=== PATIENT | female | born 1950 | race Caucasian/White ===

== ENCOUNTER 2022-06-01 17:07 | Emergency (ER) | payer MEDICARE, BC, SELFPAY ==
[2022-06-01 17:33] VITALS: BP 148/75; PULSE 69; RESP 24; TEMP 35.9; O2SAT 97; BMI 33.3
--- NOTE | 2022-06-01 17:56 | CRLHL7_ITS ---
For Patients: As a result of the Century Cures Act, medical imaging exams and procedure reports are released immediately into your electronic medical record. You may view this report before your referring provider. If you have questions, please contact your health care provider. HISTORY: Fever and cough. COMPARISON: 08/16/2019. FINDINGS: Single frontal view of the chest. The lungs are clear. No evidence for pneumonia. Heart size and pulmonary vascularity within normal. No pleural effusion. Bony structures and soft tissues are within normal. Dictated by Essence Menendez MD @ 06/01/2022 6:33:52 PM (Electronically Signed)
[2022-06-01 18:23] VITALS: PULSE 59; O2SAT 95
--- NOTE | 2022-06-01 18:24 | ED.GENADULT ---
HPI - General Adult General Chief complaint: Fever Stated complaint: Fever,Wheezing,Sick since Jesse Time Seen by Provider: 06/01/22 17:16 History of Present Illness HPI narrative: 72-year-old woman presenting to the emergency department with complaint of fever and increasingly unwell over the last 5 days. Wheezing and cough. She woke up 5 nights ago with a mouthful of acid and is worried that she may have aspirated. She did do multiple COVID tests which apparently have been negative. Does not describe any particular exposures. Her watch measured her oxygen saturations at 1 point at 92%. Sounds like this might have been after a fit of coughing. She has had some productive cough. Some tightness in her chest but no discrete pain. Worried that she might have an aspiration pneumonia it sounds like. Measured fever to 101.3 I believe and is taking acetaminophen. General myalgias she says this is a chronic state of affairs given her osteoarthritis. Does have a history of asthma. Related Data Home Medications Medication Instructions Recorded Confirmed dextroamphetamine-amphetamine ER 10 mg PO DAILY 06/01/22 06/01/22 10 mg 24hr capsule,extend release diclofenac sodium 1 % topical gel 2 g topical QID 06/01/22 06/01/22 levothyroxine 150 mcg tablet 150 mcg PO DAILY 06/01/22 06/01/22 montelukast 10 mg tablet 10 mg PO DAILY 06/01/22 06/01/22 rosuvastatin 5 mg tablet 5 mg PO DAILY 06/01/22 06/01/22 sertraline 100 mg tablet 100 mg PO Q24H 06/01/22 06/01/22 tizanidine 2 mg tablet 2 mg PO PRN 06/01/22 Allergies Allergy/AdvReac Type Severity Reaction Status Date / Time lorazepam [From Ativan] Allergy Intermediate medical Verified 06/01/22 17:55 addication adhesive Allergy Mild contact Verified 06/01/22 17:55 dermatitis bupropion Allergy Mild anxiety Verified 06/01/22 17:55 codeine Allergy Mild SOB Verified 06/01/22 17:55 dicyclomine Allergy Mild Confusion Verified 06/01/22 17:55 fenofibrate Allergy Mild myalgia Verified 06/01/22 17:55 gabapentin Allergy Mild myaglia Verified 06/01/22 17:55 Latex, Natural Rubber Allergy Mild hives Verified 06/01/22 17:55 lithium Allergy Mild falling Verified 06/01/22 17:55 methacholine Allergy Mild Hives Verified 06/01/22 17:55 metoclopramide Allergy Mild Rash Verified 06/01/22 17:55 nitrile Allergy Mild Rash Verified 06/01/22 17:55 Penicillins Allergy Mild hives Verified 06/01/22 17:55 prednisone Allergy Mild swelling Verified 06/01/22 17:55 hands [id number] Reductase Allergy Mild myalgia Verified 06/01/22 17:55 Inhibitor Sulfa (Sulfonamide Allergy Mild confusion Verified 06/01/22 17:55 Antibiotics) pregabalin Allergy Unknown Verified 06/01/22 17:55 amlodipine besylate Allergy Mild rash Uncoded 06/01/22 17:55 fluoxeitne Allergy Mild Hypertensio Uncoded 06/01/22 17:55 n fluticasone Allergy Mild Rash Uncoded 06/01/22 17:55 motirn Allergy Mild Nausea Uncoded 06/01/22 17:55 plant stanol daron Allergy Mild myalgia Uncoded 06/01/22 17:55 shellfish containing products Allergy Mild Dizziness Uncoded 06/01/22 17:55 theophylllin Allergy Mild Confusion Uncoded 06/01/22 17:55 carbamezepine Allergy Unknown Uncoded 06/01/22 17:55 methoylphenidate Allergy Unknown Uncoded 06/01/22 17:55 nabulmetone Allergy Unknown Uncoded 06/01/22 17:55 Review of Systems Status of ROS: Reports: 10 or more systems reviewed and unremarkable except as noted in History and below [facility] Social History Smoking Status: Former smoker How often do you have a drink containing alcohol: never How often do you have six or more drinks on one occasion: Never AUDIT-C Alcohol total score: 0 Non-prescribed substance use: denies use Exam Narrative: Exam Narrative: Pleasant. NAD. Sounds a little congested and laryngitic without facial swelling erythema or tenderness. Cranial nerves 2-12 intact. Skin warm and dry with light psoriatic lesions on hands/wrists. Lungs with trace end-expiratory wheeze bilaterally otherwise good air movement and no crepitus. Oropharynx is unremarkable. Little diaphoretic in the area where the mask is. Cardiovascular with regular rate and rhythm Abdomen is soft nontender. Lower extremities are without edema her nontender. Const: Vital Signs, click to edit/add: Vital Signs - 24 hr 06/01/22 17:33 06/01/22 18:23 Temperature 96.6 F L Pulse Rate [Right Pulse Oximeter] 69 59 L Respiratory Rate 24 Blood Pressure [Ri ght Upper Arm] 148/75 H Pulse Oximetry 97 95 Oxygen Delivery Me thod Room Air Room Air Documenting provider has reviewed patient's vital signs: yes Course Vital Signs Vital signs: Initial Vital Signs Temperature 96.6 F L 06/01/22 17:33 Temperature Source Temporal Artery Scan 06/01/22 17:33 Pulse Rate 69 06/01/22 17:33 Respiratory Rate 24 06/01/22 17:33 Blood Pressure 148/75 H 06/01/22 17:33 Blood Pressure Mean 99 06/01/22 17:33 Blood Pressure Position Sitting 06/01/22 17:33 Pulse Oximetry 97 06/01/22 17:33 Oxygen Delivery Method 06/01/22 17:33 Vital Signs Temperature 96.6 F L 06/01/22 17:33 Pulse Rate 69 06/01/22 17:33 Respiratory Rate 24 06/01/22 17:33 Blood Pressure 148/75 H 06/01/22 17:33 Pulse Oximetry 97 06/01/22 17:33 Oxygen Delivery Method 06/01/22 17:33 Temperature 96.6 F L 06/01/22 17:33 Pulse Rate 59 L 06/01/22 18:23 Respiratory Rate 24 06/01/22 17:33 Blood Pressure 148/75 H 06/01/22 17:33 Pulse Oximetry 95 06/01/22 18:23 Oxygen Delivery Method 06/01/22 18:23 Medical Decision Making MDM Narrative Medical decision making narrative: I would suspect influenza given community prevalence. We will be screening for this. Chest x-ray as well. By my read chest x-ray is unremarkable for any acute abnormality. Triple screen positive for influenza A With asthma and other inflammatory condition history and laryngitis I think would benefit from a course of prednisone It would seem that has been ill too long to benefit from Tamiflu Lab Data Lab results reviewed: Yes I reviewed the patient's lab results Labs: Lab Results 06/01/22 Range/Units 17:56 SARS-CoV-2 (PCR) Negative SARS-CoV-2 (Negative) Influenza Type A (PCR) POSITIVE PCR FLU A A (Negative) Influenza Type B (PCR) Negative PCR FLU B (Negative) RSV (PCR) Negative PCR RSV (Negative) Discharge Plan Discharge Clinical Impression: Influenza A, Laryngitis, Wheezing Patient Disposition: Home, Self-Care Condition: Stable Additional Instructions: Stay hydrated. Maybe sleep under the mist of a cool mist humidifier. Return for increasing shortness of breath, worsening chest pain/tightness, associated fever. Can take ibuprofen or acetaminophen. Prednisone from [facility]. Prescriptions: No Action tizanidine 2 mg tablet 2 mg PO PRN Label Comments: TAKE ONE TABLET BY MOUTH EVERY EIGHT HOURS NEEDED FOR MUSCLE SPASM sertraline 100 mg tablet 100 mg PO Q24H Label Comments: TAKE TWO TABLETS BY MOUTH DAILY levothyroxine 150 mcg tablet 150 mcg PO DAILY Label Comments: Take 1 Tablet (150 mcg) by mouth before breakfast. dextroamphetamine-amphetamine 10 mg capsule,extended release 24hr 10 mg PO DAILY Label Comments: TAKE ONE CAPSULE BY MOUTH ONE TIME DAILY montelukast 10 mg tablet 10 mg PO DAILY Label Comments: Take 1 Tablet (10 mg) by mouth at bedtime rosuvastatin 5 mg tablet 5 mg PO DAILY Label Comments: TAKE ONE TABLET BY MOUTH ONE TIME DAILY AT BEDTIME diclofenac sodium 1 % gel 2 g TOPICAL QID Label Comments: Apply 2 g topically to affected area(s) 4 times daily Follow Up/Referrals: Ning Dunn DO [Primary Care Provider] - Stand Alone Forms: MyHealth Info Instructions
[2022-06-01 19:16] LABS: PCR FLU A POSITIVE PCR FLU A (Negative); PCR FLU B Negative PCR FLU B (Negative); PCR RSV Negative PCR RSV (Negative)
[2022-06-01 19:29] LABS: SARS PCR* Negative SARS-CoV-2 (Negative)
== END 2022-06-01 20:30 | disposition home or self-care (01) ==
PROVIDERS: Emergency Provider Family Medicine; PCP Family Medicine
DX: J09.X2 Influenza due to identified novel influenza A virus with other respiratory manifestations (principal)
CPT/HCPCS: 71045; 87502; 87634; 87635; 99283

== ENCOUNTER 2023-11-01 08:45 | Outpatient (RCR) | payer MEDICARE, BC, SELFPAY | END 2024-02-08 10:30 | disposition home or self-care (01) | PROVIDERS: PCP Family Medicine; Visit Provider Physical Medicine & Rehabilitation | DX: G71.00 Muscular dystrophy, unspecified (principal); G72.9 Myopathy, unspecified; R27.8 Other lack of coordination; N39.46 Mixed incontinence; M62.81 Muscle weakness (generalized); R53.83 Other fatigue; F32.A Depression, unspecified; M25.60 Stiffness of unspecified joint, not elsewhere classified; R26.89 Other abnormalities of gait and mobility; Z51.89 Encounter for other specified aftercare | CPT/HCPCS: 97110; 97162; 97535 ==

== ENCOUNTER 2024-09-27 20:43 | Emergency (ER) | payer MEDICARE, BC, SELFPAY ==
--- OUTSIDE RECORDS SUMMARY | 2024-09-27 20:45 | XMS_ITS | Clinical Summary ---
Author Organization [facility] Address [address] [place] [id number] Care Team Providers Care Access Clerk Name Role Phone Megan Woods MD Unavailable [phone] Ning Dunn DO Primary Care Provider [phone] Allergies Active Allergy Reactions Criticality Noted Date Comments Amlodipine Besylate Rash Lorazepam Other - Describe In Comment Field 06/08/2009 Past medical related addiction Dicyclomine Confusion 12/24/2012 Mental status changes noted. Plant Stanol Rafaela Myalgia 06/05/2013 Codeine Shortness Of Breath,Other - Describe In Comment Field 06/08/2009 Muscle constriction Fenofibrate Myalgia 03/28/2013 Causes bone pain. Fluticasone Rash,Other - Describe In Comment Field 06/08/2009 Itchy rash, burning Latex, Natural Rubber Hives,Rash [place] Other - Describe In Comment Field High 06/08/2009 Weakness/lethargy Pregabalin Other - Describe In Comment Field 05/20/2015 Exfoliating Dermatitis Methacholine Hives,Fever,Other - Describe In Comment Field 06/08/2009 blisters Ibuprofen Nausea And Vomiting,Other - Describe In Comment Field High 06/08/2009 Abdominal cramping Gabapentin Myalgia 10/14/2014 Nitrile Rash 10/11/2017 Unlisted Allergen (Include Detail In Comments) Rash 06/29/2015 Adult depends - generic. Penicillins Hives,Rash,Other - Describe In Comment Field 06/08/2009 canker sores in mouth and throat Prednisone Other - Describe In Comment Field High 06/08/2009 Severe swelling and fluid on lungs if used over extended period-use only for ER Fluoxetine Hypertension,Other - Describe In Comment Field 06/08/2009 Extremely high blood pressure, shaking Metoclopramide Rash 06/08/2009 Nabumetone Other - Describe In Comment Field 06/08/2009 Asthma attacks Methylphenidate Analogues Other - Describe In Comment Field 06/08/2009 Rapid pulse, confusion, smooth muscle issues Shellfish Containing Products Dizziness 06/05/2014 Lwjjvkv-Eef-Rzf Reductase Inhibitors Myalgia 08/18/2011 Sulfa (Sulfonamide Antibiotics) Confusion,Vomiting High 06/08/2009 Adhesive Contact Dermatitis,Rash 02/16/2012 Carbamazepine Other - Describe In Comment Field High 06/08/2009 Life threatening-Saenz- Babatunde RX Theophylline Confusion 06/08/2009 Neurological symptoms, stumbling, imbalance, and muscle weakness Bupropion Anxiety,Confusion, Other - Describe In Comment Field 06/08/2009 Shaking, high blood pressure Medications acetaminophen SR (TYLENOL ARTHRITIS) 650 mg Extended-Release tablet Take 2 tablets by mouth every 8 hours if needed. Max acetaminophen dose: 4000mg in 24 hrs. 0 10/09/19 16 Active albuterol HFA (PROAIR HFA) 90 mcg/actuation inhalerIndications :Mild intermittent asthma with acute exacerbation (HC) Inhale 1-2 Puffs by mouth every 6 hours if needed. 2 Inhaler 5 08/01/19 19 Active albuterol-ipratrop ium (DUONEB) (2.5-0.5 mg) in 3 mL NEBULIZATION solutionIndication s:Mild intermittent asthma with acute exacerbation (HC) Inhale 3 mL via a nebulizer 4 times daily if needed. 360 mL 10 09/19/19 20 Active meclizine (ANTIVERT) 25 mg tabletIndications: Vertigo Take 1 tablet by mouth 3 times daily if needed. 45 tablet 01/03/20 20 Active fluticasone (50 mcg per actuation) nasal solution (FLONASE)Indicatio ns:PND (post-nasal drip) Inhale 2 Sprays into both nostrils once daily. 48 g 1 01/03/20 20 Active EPINEPHrine (EPIPEN) 0.3 mg/0.3 mL injection Inject 0.3 mg intramuscular one time for 1 dose. 10/30/19 20 Active multivitamin (MVI) tablet Take 1 Tablet by mouth once daily. 0 12/16/19 21 Active esomeprazole (NEXIUM) 20 mg capsule Active ibuprofen (ADVIL; MOTRIN) 200 mg tablet Take 2 Tablets (400 mg) by mouth two times daily. 0 07/25/19 23 Active cyanocobalamin (VITAMIN B12) 1,000 mcg tabletIndications: Vitamin B12 deficiency Take 1 Tablet (1,000 mcg) by mouth once daily. 90 Tablet 3 07/25/19 23 Active Incontinence Pad, Liner, Disp pads Daytime and nighttime pads 08/02/19 24 Active ketoconazole 2% topical (NIZORAL) creamIndications:T inea pedis, right Apply topically to affected area(s) once daily. 30 g 2 08/30/19 24 Active ammonium lactate 12% topical (LACHYDRIN) 12 % lotionIndications: Fissure in skin of foot Apply topically to affected area(s) two times daily. 396 g 5 08/30/19 24 Active levothyroxine (SYNTHROID) 150 mcg tabletIndications: Acquired hypothyroidism Take 1 Tablet (150 mcg) by mouth before breakfast. 90 Tablet 3 03/06/20 24 Active montelukast (SINGULAIR) 10 mg tabletIndications: Mild intermittent asthma without complication (HC) Take 1 Tablet (10 mg) by mouth at bedtime. 90 Tablet 3 03/06/20 24 Active sertraline (ZOLOFT) 100 mg tabletIndications: Depression, unspecified depression type Take 2 Tablets (200 mg) by mouth once daily. 180 Tablet 3 03/06/20 24 Active diclofenac topical (VOLTAREN) 1 % gelIndications:Ost eoarthritis of shoulder, unspecified laterality, unspecified osteoarthritis type,Shoulder injury, unspecified laterality, sequela Apply 2 g topically to affected area(s) four times daily. 100 g 3 03/06/20 24 Active CPAPIndications:OS A (obstructive sleep apnea) CPAP machine for home use at pressure 11 cm/h2O, full face mask x1/3month with a full face cushion x1/mo 1 Each 11 07/10/19 25 Active dextroamphetamine- amphetamine (Adderall XR) 10 mg Extended-Release capsuleIndications :Attention deficit hyperactivity disorder (ADHD), unspecified ADHD type Take 1 Capsule (10 mg) by mouth once daily. 30 Capsule 09/10/19 25 Active magic mouthwash 1:1:1 (diphen 12.5mg/5mL-lidocai ne 2%-maalox [phone]/5ml) (AMB MIX)Indications:Mo uth sore Swish and spit 5-10 mL by mouth 4 times daily if needed for Mouth Sores. 240 mL 1 09/05/19 25 Active dextroamphetamine- amphetamine (Adderall XR) 10 mg Extended-Release capsuleIndications :Attention deficit hyperactivity disorder (ADHD), unspecified ADHD type Take 1 Capsule (10 mg) by mouth once daily. 30 Capsule 10/09/19 25 025 Active dextroamphetamine- amphetamine (Adderall XR) 10 mg Extended-Release capsuleIndications :Attention deficit hyperactivity disorder (ADHD), unspecified ADHD type Take 1 Capsule (10 mg) by mouth once daily. 30 Capsule 11/08/19 25 025 Active dextroamphetamine- amphetamine (Adderall XR) 10 mg Extended-Release capsuleIndications :Attention deficit hyperactivity disorder (ADHD), unspecified ADHD type Take 1 Capsule (10 mg) by mouth once daily. 30 Capsule 12/08/19 25 Active dextroamphetamine- amphetamine (Adderall XR) 10 mg Extended-Release capsuleIndications :Attention deficit hyperactivity disorder (ADHD), unspecified ADHD type Take 1 Capsule (10 mg) by mouth once daily. 30 Capsule 08/10/19 25 025 mupirocin 2% ointmentIndication s:Sore in nose Apply topically to affected area(s) three times daily for 5 days. 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 Does have increased risk breast cancer and per concult Current National Comprehensive Cancer Network (NCCN) guidelines suggest: Annual clinical encounter Annual screening mammogram Consider tomosynthesis Breast awareness A clinical encounter should include: Ongoing risk assessment Risk reduction counseling A clinical breast exam Vitamin B deficiency 03/03/2016 ADAN 11/07/2015 AHI-14.6 11/16/2015 Status post left hip replacement 10/08/2015 Prophylactic antibiotic for dental procedure indicated due to prior joint replacement 07/06/2015 Overview (07/06/2015): Per Dr Mackay. Has card recommending 600mg clindamycin 1 hour prior to any dental procedures Status post right hip replacement 06/19/2015 Subjective muscle weakness 04/30/2015 Overview (04/30/2015): Long history muscle and joint pain. Has been seeing Dr Jean-Baptiste for back, hip and joint pains since at least 2009. Reports history abnormal muscle biopsy in 1992 with ill-defined muscle disorder. No records available. +FH muscular dystrophy and myotonia congenita. Has chronically elevated CK October 2014 reported progressive weakness upper thighs. MRI without significant change Rheumatology consult 10/2014 not FMS, not supportive of connective tissue disease, labs nml except myositis panel and recommended see neurology December 2014 Neurology 'no focal deficits or obvious pathologic weakness. EMG negative. Recommend trial neurontin or Lyrica. Previously not tolerate high dose neurontin and tried Lyrica with side effects Apr 2015: Referral placed for further evaluation at [place] [facility] as patient reports progressing symptoms. Neuropathic pain 02/03/2015 Overview (04/30/2015): Had side effects with high dose neurontin. Not tolerated lyrica. Chronic pain 10/14/2014 Chemical burn of finger 06/05/2014 Knee osteoarthritis 02/19/2014 Lactose intolerance 03/28/2013 HTN (hypertension) 01/29/2013 Hypovitaminosis D 06/14/2012 Other malaise and fatigue 06/14/2012 Overview (04/30/2015): Per chart, has had since June 2012, improved around 06/2013 and intermittent since Adenomatous colon polyp 04/17/2012 Overview (10/08/2021): Colonoscopy 04/2012 polyps repeat in 3 years Colonoscopy 04/2015 polyps repeat in 3 years Colonoscopy 05/2018 polyps, repeat in 3 years Incomplete colonoscopy 08/2021 follow-up CT colonography negative, please refer patient to tertiary care GI center in 3 years for repeat colonoscopy per patient's request Gait instability 03/19/2012 Myopathy 03/19/2012 Overview (04/30/2015): Patient reports history abnormal muscle biopsy 1992, unknown muscular disorder [facility] Has chronically elevated CK. 2014 saw Rheumatology and neurology with no known etiology for symptoms Referral [facility] for further evaluation regarding symptoms is pending Stress incontinence 03/19/2012 Dermatitis of ear canal 03/19/2012 Multiple thyroid nodules 03/19/2012 Overview (01/17/2022): Thyroid US 2020 Hyperechoic nodule left lateral thyroid lobe decreased in size from 2012. Size thyroid lobe measuring 1 x 0.9 x 0.7 cm TR 3 per report TR3: Mildly Suspicious FNA if greater than or equal to 2.5 cm Follow if greater than or equal to 1.5 cm Post concussive syndrome 12/19/2011 Magda thyroiditis 12/13/2011 Mild TBI 08/18/2011 Unspecified hypothyroidism 05/16/2011 Severe obesity (BMI 35.0-39.9) with comorbidity 05/16/2011 Assessment & Plan (10/03/2022 12:40 PM CDT): Chart update only. JEAN-PIERRE Velazquez .................... 10/03/2022 12:40 PM Other and unspecified hyperlipidemia 05/16/2011 Overview (04/30/2015): Intolerant of statins Recurrent major depressive disorder, in partial remission 05/16/2011 Asthma 05/16/2011 Hip osteoarthritis 03/24/2011 Trochanteric bursitis 03/24/2011 Degeneration of lumbar or lumbosacral interverte bral disc 03/24/2011 Overview (04/30/2015): L4-5 DDD and facet arthropathy Sensorineural hearing loss, bilateral 08/17/2009 Resolved Problems Problem Noted Date Diagnosed Date Resolved Date Anticoagulation monitoring, special range (1.8-2.5) 06/19/2015 08/19/2020 Knee pain, right 01/13/2014 02/19/2014 Pre-diabetes 05/16/2011 07/30/2012 Encounters Date Type Department Care Team Description 09/25/2024 Medical Messaging [facility] [address] [place] [address] Ning Dunn DO Referral request 09/09/2024 Nurse Triage [facility] [address] [place] [address] Ning Dunn DO Blood Body Fluid Exposure; Sores In Mouth 09/09/2024 Telephone [facility] [address] [place] [address] Ning Dunn DO OTHER (Mrsa) 09/04/2024 2:20 PM ASH CONVEYOR OPERATOR Telemedicine [facility] [address] [facility] [place] [address] Ning Dunn DO Shoulder Pain/problem (Bilateral shoulder and upper arms ongoing getting worse-referral [facility] for injections); Medication Management (2 tylenol 3 times daily, 3 ibuprofen 3 times daily-liver); Refill Request (Magic mouthwash for sore in mouth) 07/30/2024 3:00 PM ASH CONVEYOR OPERATOR Telemedicine [facility] [address] [place] [address] Hayden Blanc MD 07/30/2024 Travel 07/11/2024 Refill [facility] [address] [place] [address] Ning Dunn DO Refill Request (Dextroamphetamine- amphetamine) 07/10/2024 2:30 PM ASH CONVEYOR OPERATOR Office Visit [facility] [address] [place] [address] Aamir Rosas MD Sleep Follow-up 07/10/2024 Travel 07/05/2024 Travel from Last 3 Months Immunizations Immunization Administration Dates Next Due COVID-19 VACCINE SPIKEVAX (M ODERNA 50MCG/0.5ML) 12YO+ PFS 04/08/2023 COVID-19 vaccine (Moderna 100mcg/0.5mL) PF, MDV 08/26/2020,07/29/2020 Influenza A (H1N1), Inactivated 05/04/2009 Influenza RIV4 (Age 18+ Year s) PRESERV FREE 02/24/2017 Influenza, High-dose Inactivated 020,02/23/2018,03/01/2016,03/17 Influenza, High-dose Quadriv alent Inactivated 03/07/2023,03/17/2022,03/12/2021,03/11 Influenza, IIV3 (Age >=3 years) 03/04/2013 Influenza, Inactivated IIV3 (Age 65+ Years) Preserv Free 03/06/2024,03/07/2023,03/12/2019,03/06 Meningococcal Vaccine (Menomune) 08/28/2007 Pneumococcal Poly,23-Valent (Pneumovax) 03/19/2013 Pneumococcal conj 13-Valent (Prevnar 13) 10/03/2014 RSV, Recombinant ADJ Reconst ituted (Arexvy 120MCG/0.5mL) 04/08/2023 Td (Age >=7 Years) 03/18/2021 Tdap 05/16/2011,11/09/2006 Zoster (Shingrix-RZV, recombinant) 06/14/2018, Family History Medical History Relation Name Comments Other Brother precancerous co kaden polyps Cancer Father lung Cancer-colon Father Cancer-breast Maternal Aunt Cancer-colon Maternal Grandfather Cancer-colon Maternal Uncle Buckner syndrom e Cancer-colon Mother Cancer-breast Other maternal & pat ernal cousins Cancer-breast Paternal Aunt Cancer-colon Paternal Grandfather Cancer-colon Paternal Uncle Cancer-breast Sister 1 Diabetes Sister 1 Uterine cancer Sister 1 Arthritis Sister 2 RA Cancer-breast Sister 2 Cancer-ovarian No Family History Relation Name Status Comments Brother Father Maternal Aunt Maternal Grandfather Maternal Uncle Mother Other Paternal Aunt Paternal Grandfather Paternal Uncle Sister 1 Sister 2 Social History Tobacco Use Types Packs/Day Years Used Date Smoking Tobacco: Former Cigarettes Q uit: 07/03/1978 Smokeless Tobacco: Never Tobacco Cessation:Counseling Given: No Alcohol Use Standard Drinks/Week Comments No 0 (1 standard drink = 0.6 oz pur e alcohol) PHQ-2 Answer Date Recorded PHQ-2 TOTAL SCORE 0 03/06/2024 Social Connections Answer Date Recorded Do you often feel lonely or isolated from those around you? 0 11/20/2023 Financial Resource Strain Answer Date R ecorded Difficulty of Paying Living Expenses 3 11/20/2023 Difficulty of Paying Living Expenses Not on file 11/20/2023 Food Insecurity Answer Date Recorded Do you worry your food will run out before you are able to buy more? 1 11/20/2023 Transportation Needs Answer Date Record ed Does lack of transportation keep you from medica l appointments? 2 11/20/2023 Does lack of transportation keep you from work, meetings or getting things that you need? 2 11/20/2023 Housing Stability Answer Date Recorded What is your housing situation today? 1 11/20/2023 Utilities Answer Date Recorded Do you have trouble paying f or utilities (for example, heat, electricity, water, phone)? 1 11/20/2023 Comments No Sex and Gender Information Value Date Recorded Sex Assigned at Female 03/12/2020 1:26 AM CDT Legal Sex Female 6:09 AM ASH CONVEYOR OPERATOR Gender Identity Female 03/12/2020 1:26 AM CDT Sexual Orientation Straight 03/12/2020 1: 26 AM CDT Obstetrics History Para Term AB IAB SAB Ectopic Multiple Livin g Live Births 1 1 0 1 0 0 0 0 0 1 1 Date Outcome GA Total Labor Labor/2nd/3rd Weight Sex Type Anes PTL Lorna A1 A5 Name Clin Vag Living Last Filed Vital Signs Vital Sign Reading Time Taken Comments Blood Pressure 169/78 07/10/2024 2:44 PM ASH CONVEYOR OPERATOR Pulse 57 07/10/2024 2:36 PM ASH CONVEYOR OPERATOR Temperature 36.9 C (98.5 F) 03/11/2021 1:17 PM CDT Respiratory Rate 12 04/08/2019 2:35 PM CDT Oxygen Saturation 96% 07/10/2024 2:36 PM ASH CONVEYOR OPERATOR Inhaled Oxygen Concentration - - Weight 104 kg (229 lb 3.2 oz) 07/10/2024 2:36 PM ASH CONVEYOR OPERATOR Height 162.6 cm (5' 4) 07/10/2024 2:36 PM ASH CONVEYOR OPERATOR Body Mass Index 39.34 07/10/2024 2:36 PM ASH CONVEYOR OPERATOR Plan of Treatment Upcoming Encounters Date Type Department Care Team (Late st Contact Info) Description 10/09/2024 10:50 AM CDT Office Visit [facility] [address] [place] [address] Ning Dunn DO [address] [place] [address] Health Maintenance Due Date Last Done Comments COVID-19 vaccine series ( season) 2024 03/15/2024, 09/27/2023, 04/08/2023, Additional history exists Depression screening for age 12+ 03/06/2025 03/06/2024, 07/26/2023, 07/26/2023, Additional history exists Medicare Wellness for age 65+ 03/07/2025, 04/16/2020, 02/03/2015 BMI (ht and wt on same day) for age 18+ 07/10/2025 07/10/2024, 03/06/2024, 07/26/2023, Additional history exists Tetanus booster 03/18/2031 03/18/2021, 05/03, 05/16/2011, Additional history exists Tdap Completed 05/16/2011, 11/09/2006 Pneumococcal series for age 50+ Completed 10/11/2014 (Completed outside of [facility]), 10/03/2014, 03/19/2013 Zoster (shingles) series for age 50+ Completed 06/14/2018, 03/21/2018 DEXA/DXA scan for age 65+ Completed 04/29/2020, Hepatitis C screening for ag e 18-79 Completed 03/19/2021, 03/19/2012 RSV vaccine for adults or Completed 04/08/2023 Influenza Vaccine Completed 03/06/2024, , 03/12/2020, Additional history exists Procedures Procedure Name Priority Date/Time Associated Diagnosis Comments ANTI HCV Add On 03/19/2021 3:41 PM CDT Elevated liver enzymes XR DXA BONE DENSITY 1 SITE AXIAL AND 1 SITE PERIPHERAL Routine 04/29/2020 1:54 PM CDT Asymptomatic postmenopausal state from Last 3 Months or Most Recently Relevant to Health Maintenance Results * ANTI HCV (03/19/2021 3:41 PM CDT) HEPATITIS C ANTIBODY Non-React huma Non-React huma 03/20/2021 11:31 PM CDT [facility] Comment:Antibodies to HCV no t detected; does not exclude the possibility of exposure to HCV. Blood BLOOD SPECIMEN / Unknown Venipuncture / Unknown 03/19/2021 3:41 PM CDT 03/19/2021 3:41 PM CDT Ning Dunn DO SEND OUTS Final [facility]u lt [facility] [address] [place] [address], [place] * XR DXA BONE DENSITY 1 SITE AXIAL AND 1 SITE PERIPHERAL (04/29/2020 1:54 PM CDT) Anatomical Region Laterality Modality LUMBAR SPINE Other Narrative 05/10/2020 3:57 PM ASH CONVEYOR OPERATOR Please see scanned document for results of this study. Ning Dunn DO DEXA Final Resu lt from Last 3 Months or Most Recently Relevant to Health Maintenance Insurance [id number] [facility] [place] [id number] MEDICARE [place] ONLY MEDICARE PART A HB ONLY MEDICARE PART B HB ONLY [facility] FAMILY INSURANCE MEDICARE [place] ONLY [id number] [place] [id number] COMM[address]CIAL [id number] [facility] [place] [id number] Advance Directives Documents on File Type Date Recorded Patient Water Inspector Expl anation Healthcare Directive 06/08/2015 2:32 PM [facility], 05/26/2015 Care Teams Access Clerk Relationship Specialty Start Date End Date [place] [address] PCP - General Family Practice 04/16/15 Megan Woods MD [address] [place] [address] Rheumatology Rheumatology 11/07/14
--- OUTSIDE RECORDS SUMMARY | 2024-09-27 20:45 | XMS_ITS | Clinical Summary ---
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/19 Karmen Darlene Cherucheril PA-C Muscular dystrophy Other lesions of median nerve, bilateral upper limbs 871121155 (SNOMED CT) 11/24 Active 11/24 Michael Weems MD Lesion of median nerve Bladder instability 652739933 (SNOMED CT) 10/31 Active 10/31 Afshin Hsu MD Irritability of urinary bladder Numbness, hand 479742109 (SNOMED CT) 08/24 Active 08/24 Karmen Darlene Cherucheril PA-C Numbness of limbs Upper arm pain, right 437452950 (SNOMED CT) 08/24 Active 08/24 Karmen Darlene Cherucheril PA-C Pain in right arm Upper arm pain, left 895825194 (SNOMED CT) 08/24 Active 08/24 Karmen Darlene Cherucheril PA-C Pain in left arm Shoulder pain, right 25898874687 133212 (SNOMED CT) 08/24 Active 08/24 Karmen Darlene Cherucheril PA-C Pain of right shoulder joint Shoulder pain, left 74531911472 706182 (SNOMED CT) 08/24 Active 08/24 Karmen Carrera PA-C Pain of left shoulder joint Lumbar radiculopat hy, left 595105332 (SNOMED CT) 07/21 Active 07/21 Afshin Hsu MD Lumbar radiculopathy Myopathy 747691574 (SNOMED CT) 03/22 Active 03/22 Karmen Carrera PA-C Disorder of muscle Sleep disturbance , nos 44490517 (SNOMED CT) 02/24 Active 02/24 Rodolfo Conrad MD Sleep apnea Syncope 016681971 (SNOMED CT) 08/16 Active 08/17 Rodolfo Conrad MD Syncope History of head injury 155312585 (SNOMED CT) 08/02 Active 08/02 Rodolfo Conrad MD History of head injury Strain of muscle, fascia and tendon at neck level, sequela S16.1xxS (ICD-10-CM) 12/11 Active 12/11 Monika Alicia Fletcher DNP,SOURCING CONSULTANT,CN P Strain of muscle, fascia and tendon at neck level, sequela Lumbar disc degeneratio n 02381108 (SNOMED CT) 12/11 Active 12/11 Monika Alicia Fletcher DNP,SOURCING CONSULTANT,CN P Degeneration of lumbar intervertebral disc Weakness of right leg 055120211 (SNOMED CT) 07/11 Active 07/11 Monika Alicia Fletcher DNP,SOURCING CONSULTANT,CN P Monoparesis of lower limb Lumbar degenerativ e disc 722.52 (ICD-9-CM) 12/11 Inactive 12/11 Brent Mcgraw DO Degeneration of lumbar or lumbosacral intervertebral disc Low back pain 807692773 (SNOMED CT) 12/11 Active 12/11 Brent Brockmann DO Low back pain Leg pain 06716886 (SNOMED CT) 12/11 Active 12/11 Brent Mcgraw DO Pain in lower limb Dysequilibr ium 237773947 (SNOMED CT) 12/11 Active 12/11 Brent Mcgraw DO Dysequilibrium syndrome Cervical strain 396719779 (SNOMED CT) 12/11 Inactive 12/11 Brent Mcgraw DO Strain of neck muscle Low back pain 474821450 (SNOMED CT) 12/11 Active 12/11 Brent Mcgraw DO Low back pain ULNAR NEUROPATHY 598886488 (SNOMED CT) 08/17 Active 08/17 Harvey Camara MD Ulnar neuropathy UNSPECIFIED VITAMIN D DEFICIENCY 98480485 (SNOMED CT) 07/05 Active 07/05 Brent Mcgraw DO Vitamin D deficiency HYPOTHYROID ISM 28106752 (OMED CT) 07/05 Active 07/05 Brent Mcgraw DO Hypothyroidism MUSCULOSKEL ETAL SYMPTOMS, NOS R29.898 (ICD-10-CM) 08/04 Active 08/04 Brent Mcgraw DO Other symptoms and signs involving the musculoskeleta l system MUSCLE WEAKNESS 79457465 (SNOMED CT) 08/04 Active 08/04 Brent Mcgraw DO Muscle weakness Medications Medication Instructions Start Date Stop Date Generic Name [facility] Provider AMPHETAMINE-DEXT ROAMPHET ER 10 MG [id number] 02/13 dextroamphetamine -amphetamine 48135095813 Afshin Hsu MD AMPHETAMINE-DEXT ROAMPHET ER 10 MG [id number] take 1 pill every morning as needed dextroamphetamine -amphetamine 27801079669 Afshin Hsu MD MELOXICAM 15 MG TABS 01/15 meloxicam 39343112180 Karmen Carrera PA-C COMBIVENT RESPIMAT 20-100 MCG/ACT AERS as needed 01/15 ipratropium-albut joseline 51509921966 Karmen Carrera PA-C BACTROBAN 2 % EXTERNAL OINTMENT as needed 01/15 BACTROBAN 2 % EXTERNAL OINTMENT Karmen Darlene Cherucheril PA-C MECLIZINE HCL 25 MG TABS as needed 01/15 meclizine 49811149400 Karmen Guzmanyo MOREJON-C EZETIMIBE 10 MG TABS ezetimibe 72886494401 Karmen Carrera JEAN-PIERRE-C AMPHETAMINE-DEXT ROAMPHET ER 10 MG [id number] 11/15 dextroamphetamine -amphetamine 52392507624 Karmen Guzmanyo MOREJON-C ADULT ASPIRIN EC LOW STRENGTH 81 MG ORAL TABLET DELAYED RELEASE 1 once a day 03/22 ADULT ASPIRIN EC LOW STRENGTH 81 MG ORAL TABLET DELAYED RELEASE Monika Fletcher DNP,SOURCING CONSULTANT,HTML DEVELOPER LEVOFLOXACIN 500 MG TABS 03/22 levofloxacin 52984592309 Monika Fletcher DNP,SOURCING CONSULTANT,HTML DEVELOPER MONTELUKAST SODIUM 10 MG TABS montelukast 93501620084 Monika Fletcher DNP,SOURCING CONSULTANT,HTML DEVELOPER OXYBUTYNIN CHLORIDE ER 10 MG [id number] 03/22 oxybutynin chloride 19570366367 Monika Fletcher DNP,SOURCING CONSULTANT,HTML DEVELOPER MECLIZINE HCL 25 MG TABS as needed 01/15 meclizine 73454959414 Monika Fletcher DNP,SOURCING CONSULTANT,HTML DEVELOPER COMBIVENT RESPIMAT 20-100 MCG/ACT AERS as needed 01/15 ipratropium-albut joseline 46187873996 Monika Fletcher DNP,SOURCING CONSULTANT,HTML DEVELOPER LEVOTHYROXINE SODIUM 150 MCG TABS levothyroxine 91402293175 Monika Fletcher DNP,SOURCING CONSULTANT,HTML DEVELOPER EPIPEN 2-NICKOLAS 0.3 MG/0.3ML SOAJ epinephrine 22640277195 Monika Fletcher DNP,SOURCING CONSULTANT,HTML DEVELOPER BACTROBAN 2 % EXTERNAL OINTMENT as needed 01/15 BACTROBAN 2 % EXTERNAL OINTMENT Monika Fletcher DNP,SOURCING CONSULTANT,HTML DEVELOPER MELOXICAM 15 MG TABS 01/15 meloxicam 62153832720 Monika Fletcher DNP,SOURCING CONSULTANT,HTML DEVELOPER AMLODIPINE BESYLATE 2.5 MG TABS 03/22 amlodipine 60855144659 Monika Fletcher DNP,SOURCING CONSULTANT,HTML DEVELOPER D 5000 125 MCG (5000 UT) CAPS once a day cholecalciferol (vitamin d3) 68534597790 Monika Fletcher DNP,SOURCING CONSULTANT,HTML DEVELOPER FLUZONE HIGH-DOSE 0.5 ML INTRAMUSCULAR SUSPENSION PREFILLED SYRINGE 03/22 FLUZONE HIGH-DOSE 0.5 ML INTRAMUSCULAR SUSPENSION PREFILLED SYRINGE Monika Fletcher DNP,SOURCING CONSULTANT,HTML DEVELOPER SERTRALINE HCL 100 MG TABS sertraline 46453277205 Monika Fletcher DNP,SOURCING CONSULTANT,HTML DEVELOPER DULERA AERO 08/23 MOMETASONE FURO-FORMOTEROL FUM AERO 76192209249 Rodolfo Conrad MD AMMONIUM LACTATE 12 % CREA as needed 08/23 AMMONIUM LACTATE 33717865597 Rodolfo Conrad MD AMMONIUM LACTATE 12 % CREA as needed 10/15 AMMONIUM LACTATE 36226418012 Monika Fletcher DNP,SOURCING CONSULTANT,HTML DEVELOPER BACTROBAN 2 % EXTERNAL OINTMENT as needed 03/22 MUPIROCIN 79490398240 Monika Fletcher DNP,SOURCING CONSULTANT,HTML DEVELOPER MECLIZINE HCL 25 MG TABS as needed 03/22 MECLIZINE HCL 45738562841 Monika Fletcher DNP,SOURCING CONSULTANT,HTML DEVELOPER DULERA AERO 08/23 MOMETASONE FURO-FORMOTEROL FUM AERO 88075459444 Monika Fletcher DNP,SOURCING CONSULTANT,HTML DEVELOPER VITAMIN D3 125 MCG (5000 UT) CAPS daily 03/22 CHOLECALCIFEROL 21878015693 Monika Fletcher DNP,SOURCING CONSULTANT,HTML DEVELOPER COMBIVENT RESPIMAT AERS as needed 03/22 IPRATROPIUM-ALBUT JOSELINE AERS 71431641892 Monika Fletcher DNP,SOURCING CONSULTANT,HTML DEVELOPER ADULT ASPIRIN EC LOW STRENGTH 81 MG ORAL TABLET DELAYED RELEASE One pill daily 03/22 ASPIRIN 50218488431 Monika Fletcher DNP,SOURCING CONSULTANT,HTML DEVELOPER EPIPEN 2-NICKOLAS 0.3 MG/0.3ML SOAJ 10/15 EPINEPHRINE 88135461610 Monika Fletcher DNP,SOURCING CONSULTANT,HTML DEVELOPER OXYBUTYNIN CHLORIDE ER 10 MG [id number] 08/17 OXYBUTYNIN CHLORIDE 42606802209 Monika Fletcher DNP,SOURCING CONSULTANT,HTML DEVELOPER SERTRALINE HCL 100 MG TABS 03/22 SERTRALINE HCL 92390864082 Monika Fletcher DNP,SOURCING CONSULTANT,HTML DEVELOPER MONTELUKAST SODIUM 10 MG TABS 03/22 MONTELUKAST SODIUM 36030095514 Monika Fletcher DNP,SOURCING CONSULTANT,HTML DEVELOPER LEVOTHYROXINE SODIUM 150 MCG TABS 10/15 LEVOTHYROXINE SODIUM 52646038806 Monika Fletcher DNP,SOURCING CONSULTANT,HTML DEVELOPER AMLODIPINE BESYLATE 2.5 MG TABS 10/15 AMLODIPINE BESYLATE 00030229436 Monika Fletcher DNP,SOURCING CONSULTANT,HTML DEVELOPER FLUZONE HIGH-DOSE 0.5 ML DESTINY INFLUENZA VAC SPLIT HIGH-DOSE 31490506432 Monika Fletcher DNP,SOURCING CONSULTANT,HTML DEVELOPER MELOXICAM 15 MG TABS 03/22 MELOXICAM 16034749890 Monika Fletcher DNP,SOURCING CONSULTANT,HTML DEVELOPER LEVOFLOXACIN 500 MG TABS 03/22 LEVOFLOXACIN 16154875925 Monika Fletcher DNP,SOURCING CONSULTANT,HTML DEVELOPER ZANAFLEX 4MG 1 po qhs and bid prn muscle stiffness and pain 07/11 ZANAFLEX 4MG Monika Fletcher DNP,SOURCING CONSULTANT,HTML DEVELOPER LYRICA 75 MG CAPS 1 po bid 02/26 PREGABALIN 90974405639 Kendy Soto MS PA-C LYRICA 50 MG CAPS take 1 tab daily in am 02/26 PREGABALIN 22525304875 Kendy Soto MS PA-C LYRICA 50 MG CAPS take 1 tab daily in am 10/15 PREGABALIN 69716930257 Kendy Soto MS PA-C LYRICA 75 MG CAPS 1 po bid 10/15 PREGABALIN 54098719256 Brent AliciaFelipa Tarrel DO ZANAFLEX 4MG 1 po qhs and bid prn muscle stiffness and pain 07/11 ZANAFLEX 4MG Brent Harman Tarrel DO Medications Administered No information available. Allergies, Adverse Reactions, Alerts Allergy Name Reaction Description Start Date Severity Statu s Provider FLUTICASONE PROPIONATE rash Critical No Longer Active Rodolfo Conrad MD LATEX Moderate Active Rodolfo Conrad MD LYRICA exfoliating dermatit is on hands and feet Critical Active Monika Fletcher DNP,SOURCING CONSULTANT,HTML DEVELOPER GABAPENTIN myalgia Critical Active Moinka Fletcher DNP,SOURCING CONSULTANT,HTML DEVELOPER SHELLFISH anaphylactic reaction Critical Active Monika Fletcher DNP,SOURCING CONSULTANT,HTML DEVELOPER CHOLESTOFF PLUS myalgia pain Critical Active Monika Fletcher DNP,SOURCING CONSULTANT,HTML DEVELOPER FENOFIBRATE myalgia pain Critical Active Monika Cristobaligel DNP,SOURCING CONSULTANT,HTML DEVELOPER DICYCLOMINE HCL confusion Critical Active Monika Fletcher DNP,SOURCING CONSULTANT,HTML DEVELOPER ADHESIVE BANDAGES blisters Critical Active Valdez Fletcher DNP,SOURCING CONSULTANT,HTML DEVELOPER ATORVASTATIN CALCIUM severe myalgia and pain Critical Active Monika Cristobaligel DNP,SOURCING CONSULTANT,HTML DEVELOPER FLUTICASONE PROPIONATE rash Critical No Longer Active Monika Fletcher DNP,SOURCING CONSULTANT,HTML DEVELOPER MEIJER ANTIHISTAMINE ALLERGY paradoxical effect Critical Active Monika Cristobaligel DNP,SOURCING CONSULTANT,HTML DEVELOPER BUPROPION HCL anxiety and confusion Critical Act huma Monika Fletcher DNP,SOURCING CONSULTANT,HTML DEVELOPER THEOPHYLLINE neurological issues Critical Active Monika Fletcher DNP,SOURCING CONSULTANT,HTML DEVELOPER CARBAMAZEPINE rash-Dexter Babatunde' s syndrome Critical Active Monika Fletcher DNP,SOURCING CONSULTANT,HTML DEVELOPER SULFAMETHOXAZOLE-TRI METHOPRIM allergic reaction of confusion and vomiting Critical Active Monika Fletcher DNP,SOURCING CONSULTANT,HTML DEVELOPER METHYLPHENIDATE HCL heart issues Critical Active Monika Cristobaligel DNP,SOURCING CONSULTANT,HTML DEVELOPER NABUMETONE allergic rash Critical Active Monika Cristobaligel DNP,SOURCING CONSULTANT,HTML DEVELOPER METOCLOPRAMIDE HCL allergic rash Critical Active Monika Cristobaligel DNP,SOURCING CONSULTANT,HTML DEVELOPER FLUOXETINE HCL hypertension Critical Active A richardson Fletcher DNP,SOURCING CONSULTANT,HTML DEVELOPER PREDNISONE (NICKOLAS) swelling and lung issues Critical Active Monika Fletcher DNP,SOURCING CONSULTANT,HTML DEVELOPER PENICILLIN G POTASSIUM allergic rash Critical Active Monika Fletcher DNP,SOURCING CONSULTANT,HTML DEVELOPER IBUPROFEN esophagitis Critical Active Monika Fletcher DNP,SOURCING CONSULTANT,HTML DEVELOPER METHACHOLINE/LIVER blisters on skin Critical Act huma Monika Fletcher DNP,SOURCING CONSULTANT,HTML DEVELOPER CODEINE SULFATE restricted breathing Critical Ac tive Monika Fletcher DNP,SOURCING CONSULTANT,HTML DEVELOPER LITHIUM CARBONATE muscle weakness and semiconsciousness Critical Active Monika Fletcher DNP,SOURCING CONSULTANT,HTML DEVELOPER LORAZEPAM addiction Critical Active Monika Fletcher DNP,SOURCING CONSULTANT,HTML DEVELOPER Results Date Name Value Unit Range Flag Description Clinical Lists Update: Metho d of Contact METHCONTACT secmsg Patient's prefered method of contact Internal Other: Authorizatio n - OBS PTSTAUTHDT Done PT Barber paul Authorization Date Office Visit: MEM ISSUES; HX OF CONCUSSIONS 08/02/16 11:17- 08/02/16 11:17... SMOK STATUS former smoker Tob acco smoking status Office Visit: 07/19/17 12:52 REFERRING PHYSICIAN NAME: HUI EDGAR ... FALLRSKASSES Done Fall ris k assessment Internal Other: Authorizatio n - OBS [email or web address] Yes Authoriza tion: Release of Information - Authorize [facility] - Payment and Healthcare Operations ROIAUTHOTHER Yes Authoriz ation: Release of Information - Authorize Others/Insurance - Payment and Healthcare Operations HIECONSENT Yes Consent To Release information to the Health Information Exchange (HIE) [email or web address] Yes Authorizat ion: Authorization for [facility] to leave messages, voicemail, send text messages, send emails AUTHRELHCARE Yes Authoriz ation: Release/Retrieval of Information to/from Healthcare Facilities, Pharmacy Benefit Payers and Providers AUTHPRIVPRAC Yes Authoriz ation: Notice of privacy practices AUTHBENEFIT Yes Authoriza tion: Assignment of Benefits and Payment Agreement Telemedicine: Telemedicine V isit fax MEDS REVIEW Done Documenta tion of current medications (procedure) Plan of Care Type Date Detail Appointment 12:00 PM Michael Weems MD , [address], [address], [place], [address], Pending order Follow up Pending order Follow up Pending order Patient Instruct ions Pending order Follow up with N eurologist or JERAD Pending order Other Referral Pending order Other Referral Pending order Other Lab Pending order Follow up Pending order Obtain outside r ecords Pending order Patient Instruct ions Pending order Patient Instruct ions Pending order Other Order Pending order MRI-Thoracic W/O Pending order Other Referral Pending order Physical Therapy Pending order EMG bilateral up per ext Pending order EMG left lower e xt Pending order CK (Creatine Kin ase) Total Pending order Hemoglobin A1C Pending order Methylmalonic Ac id Serum (MMA) Pending order Vitamin B12 Pending order Follow up with N eurologist or JERAD Pending order Follow up after testing Pending order EMG left upper e xt Pending order EMG right upper ext Pending order Physical Therapy Pending order Physical Therapy Pending order Other Order Pending order MRI-Lumbar W/O Pending order Other Order Pending order EMG bilateral lo w ext Pending order EMG bilateral up per ext Pending order Follow up Pending order Follow up Pending Order exclud ed from report: Pending order Other Order Pending order Follow up Pending order Follow up Pending order Sleep Consult Pending order Follow up Pending order Sleep Consult Pending Order exclud ed from report: Pending order EEG Extended Pending order Follow up Pending order Patient Instruct ions Pending order MRI-Lumbar W/O Pending order Patient Instruct ions Pending order Other Referral Procedures Code Procedure Name Date Entry Date ORDERS Follow up with Neurologist or JERAD ORDERS Patient Instructions [id number] Other Referral SCT-[id number] Other Referral ORDERS Other Lab ORDERS Follow up ORDERS Other Order ORDERS Patient Instructions ORDERS Patient Instructions ORDERS Obtain outside records 12/09 CPT-47063 Nerve Conduction 13 or more studies 11/24 CPT-11922 EMG with NCS (5+ muscles) - 3 limbs 11/24 [id number] MRI-Thoracic W/O CPT-28124 MRI Thoracic W/O [facility]-[id number] Other Referral ORDERS Physical Therapy ORDERS EMG left lower ext 1 ORDERS CK (Creatine Kinase) Total 2 ORDERS Hemoglobin A1C ORDERS Methylmalonic Acid Serum (MMA) ORDERS Vitamin B12 ORDERS Follow up with Neurologist or JERAD ORDERS Follow up after testing 2022 ORDERS EMG bilateral upper ext 2022 ORDERS EMG right upper ext ORDERS EMG left upper ext 2 ORDERS Physical Therapy ORDERS Physical Therapy ORDERS Other Order [id number] MRI-Lumbar W/O ORDERS Follow up ORDERS Other Order ORDERS EMG bilateral upper ext 2020 ORDERS EMG bilateral low ext 03/22 CPT-78621 Nerve Conduction 9-10 studies CPT-94594 EMG with NCS (5+ muscles) - 2 limbs 03/31 ORDERS Follow up ORDERS Other Order ORDERS Follow up [id number] Documentation of current medicatio ns ORDERS Follow up SCT-[id number] Documentation of current medicatio ns LOINC 19484-1 Fall risk assessment 09/01 ORDERS Sleep Consult LOINC 14757-0 Fall risk assessment 02/24 SCT-[id number] Documentation of current medicatio ns ORDERS Follow up SCT-791619955 Fall risk assessment (procedure) SCT-[id number] Documentation of current medicatio ns CPT-24533 EEG EXTENDED 61-119mins (END) ORDERS EEG Extended SCT-[id number] Fall risk assessment (procedure) SCT-586463260 Fall risk assessment (procedure) SCT-[id number] Documentation of current medicatio ns SCT-588774820 Fall risk assessment (procedure) ORDERS Patient Instructions [id number] MRI-Lumbar W/O CPT-08868 MRI Lumbar W/O ORDERS Patient Instructions [facility]-[id number] Documentation of current medicatio ns [facility]-[id number] Other Referral CPT-71531 Nerve Conduction 5-6 studies CPT-42203 EMG with NCS (5+ muscles) - 2 limbs 12/26 CPT-30298 Sensory NCS x 6 CPT-80660 Motor NCS and Fwave x 4 2008 CPT-83040 H-reflex x 1 CPT-00912 EMG 2 limb Vital Signs Date Name Value Unit Description Height 64.8 [in_us] height E&M BMI (Body Mass Index) 38.95 kg/m2 Bod y Mass Index (Ratio) BP Diastolic 72 mm[Hg] blood pressu re, diastolic BP Systolic 129 mm[Hg] blood pressur e, systolic Heart Rate 61 /min pulse rate Weight Measured 231.8 [lb_av] weight E& M Weight Measured 231.8 [lb_av] weight E& M Immunizations No information available. Advance Directives No information available.
[2024-09-27 20:53] VITALS: BP 183/76; PULSE 70; RESP 16; TEMP 37.2; O2SAT 98; BMI 38.3
--- NOTE | 2024-09-27 20:59 | ED_ITS ---
HPI - General Adult General Time Seen by Provider: 20:59 Date Seen: 09/27/24 Chief complaint: Cough Stated complaint: Cough, shortness of breath Time Seen by Provider: 09/27/24 20:55 Source: patient and RN notes reviewed Mode of arrival: ambulatory Limitations: no limitations History of Present Illness HPI narrative: This 74-year-old female is coming in with concern of cough and fevers. She has a history of underlying mild asthma, is usually not problematic unless she has an illness. She does not even have inhalers at home and does not use them, does not need them typically. She started with an illness on Monday, today is Monday. She is coughing, coughing up yellow chunks of phlegm that take her a while to get up. She is coughing to the point of getting a headache at times. She has felt sweaty and has had chills she has had fevers up to 100.2 at home. She was lying back in her recliner tonight and felt wheezy, felt like she was having a difficult time breathing. She took 2 Tylenol, 3 ibuprofen and 1 loratadine at 8:30 p.m. tonight. 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 She did do a home COVID test yesterday that was negative. Related Data Home Medications ?Medication ?Instructions ?Recorded ?Confirmed dextroamphetamine-amphetamine ER 10 mg PO DAILY 06/01/22 09/09/24 10 mg 24hr capsule,extend release diclofenac sodium 1 % topical gel 2 g topical QID 06/01/22 09/09/24 levothyroxine 150 mcg tablet 150 mcg PO DAILY 06/01/22 09/09/24 montelukast 10 mg tablet 10 mg PO DAILY 06/01/22 09/09/24 sertraline 100 mg tablet 100 mg PO Q24H 06/01/22 09/09/24 tizanidine 2 mg tablet 2 mg PO PRN 06/01/22 09/09/24 acetaminophen 500 mg tablet 500 mg PO Q6H PRN 02/13/23 09/09/24 (Tylenol Extra Strength) ibuprofen 200 mg capsule 600 mg PO Q6H PRN 09/09/24 09/09/24 Previous Rx's ?Medication ?Instructions ?Recorded albuterol sulfate 90 mcg/actuation 2 puff inhalation Q4-6H PRN 09/27/24 aerosol inhaler shortness of breath or wheezing #8.5 grams prednisone 20 mg tablet 20 mg PO DAILY #4 tabs 09/27/24 Allergies Allergy/AdvReac Type Severity Reaction Status Date / Time codeine Allergy Severe SOB Verified 09/09/24 18:56 adhesive Allergy Intermediate contact Verified 09/09/24 18:56 dermatitis lithium Allergy Intermediate falling Verified 09/09/24 18:56 bupropion Allergy Mild anxiety Verified 09/09/24 18:56 fluoxetine Allergy Mild Hypertensio Verified 09/09/24 18:56 n fluticasone Allergy Mild Rash Verified 09/09/24 18:56 gabapentin Allergy Mild myaglia Verified 09/09/24 18:56 ibuprofen (From Motrin) Allergy Mild Nausea Verified 09/09/24 18:56 Latex, Natural Rubber Allergy Mild hives Verified 09/09/24 18:56 lorazepam (From Ativan) Allergy Mild medical Verified 09/09/24 18:56 addication methacholine Allergy Mild Hives Verified 09/09/24 18:56 nitrile Allergy Mild Rash Verified 09/09/24 18:56 Penicillins Allergy Mild hives Verified 09/09/24 18:56 shellfish derived Allergy Mild Dizziness Verified 09/09/24 18:56 [id number] Reductase Allergy Mild myalgia Verified 09/09/24 18:56 Inhibitor Sulfa (Sulfonamide Allergy Mild confusion Verified 09/09/24 18:56 Antibiotics) theophylline Allergy Mild Confusion Verified 09/09/24 18:56 aspirin Allergy Unknown asthma Verified 09/09/24 18:56 attack, breathing problems carbamazepine Allergy Unknown Verified 09/09/24 18:56 dicyclomine Allergy Unknown Confusion Verified 09/09/24 18:56 fenofibrate Allergy Unknown myalgia Verified 09/09/24 18:56 methylphenidate Allergy Unknown rapid Verified 09/09/24 18:56 pulse, confusion, smooth muscle issues metoclopramide Allergy Unknown Rash Verified 09/09/24 18:56 nabumetone Allergy Unknown Verified 09/09/24 18:56 nickel Allergy Unknown Verified 09/09/24 18:56 prednisone Allergy Unknown swelling Verified 09/09/24 18:56 hands pregabalin Allergy Unknown exfoliating Verified 09/09/24 18:56 dermatitis amlodipine besylate Allergy Mild rash Uncoded 09/09/24 18:56 plant stanol daron Allergy Mild myalgia Uncoded 09/09/24 18:56 Review of Systems Narrative: As per HPI. [facility] Medical History Fracture of transverse process of vertebra Vitamin D deficiency (09/28/09) ?E55.9 - Vitamin D deficiency, unspecified (ICD-10) Closed head injury (1988) ?S09.90XA - Unspecified injury of head, initial encounter (ICD-10) History of methicillin resistant Staphylococcus aureus infection ?Z86.14 - Personal history of Methicillin resistant Staphylococcus aureus infection (ICD-10) Surgical History History of phacoemulsification of cataract of right eye with intraocular lens implantation (06/07/17) ?Z98.41 - Cataract extraction status, right eye (ICD-10) ?Z96.1 - Presence of intraocular lens (ICD-10) History of phacoemulsification of cataract of left eye with intraocular lens implantation (06/21/17) ?Z98.42 - Cataract extraction status, left eye (ICD-10) ?Z96.1 - Presence of intraocular lens (ICD-10) Retinal tear (2004) ?H33.319 - Horseshoe tear of retina without detachment, unspecified eye (ICD- 10) H/O tubal ligation ?Z98.51 - Tubal ligation status (ICD-10) H/O breast biopsy ?Z98.890 - Other specified postprocedural states (ICD-10) 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) ?Z96.641 - Presence of right artificial hip joint (ICD-10) 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) ?Z96.642 - Presence of left artificial hip joint (ICD-10) Family History Other Colon cancer Myotonia congenita Social History Smoking Status: Former smoker Second hand tobacco smoke exposure: No How often do you have a drink containing alcohol: never How often do you have six or more drinks on one occasion: Never AUDIT-C Alcohol total score: 0 Non-prescribed substance use: denies use Exam Const: Vital Signs, click to edit/add: Vital Signs - 24 hr 09/27/24 20:53 09/27/24 23:18 09/27/24 23:19 Temperature 99.0 F 99.0 F 99.0 F Pulse Rate [Pulse Oximeter] 70 72 72 Respiratory Rate 16 16 16 Blood Pressure [Ri ght Upper Arm] 183/76 H 153/84 H 153/84 H Pulse Oximetry 98 98 Oxygen Delivery Me thod Room Air Room Air This 74-year-old female is alert, interactive, no apparent distress. She is able to speak in complete sentences, does have an N95 mask on. Pupils equal round reactive, sclera clear. Neck is supple, no adenopathy, no jugular venous distension, no thyromegaly masses or nodules. Lungs currently are clear, no wheezing or crackles, no tachypnea, no accessory muscle use. CV regular rate and rhythm, soft systolic murmur, normal S1-S2. Documenting provider has reviewed patient's vital signs: yes Course Course ED Course: Patient is presenting with upper respiratory illness with underlying history of asthma. This could be a viral upper respiratory infection, bronchitis, pneumonia either viral or bacterial. Will look at a chest x-ray, do the triple viral swab. She is oxygenating well, no wheezing here. Do not think she needs any further workup at this time. Reevaluation(s) Time of Reevaluation #1: 23:01 Reevaluation #1: Patient in I reviewed her negative triple viral swab, negative chest x-ray. She agrees that this is likely just a ?cold? or a viral upper respiratory infection. She does feel it is exacerbating her asthma. Have heard her coughing quite a bit while here. Discussed getting her an albuterol inhaler. She states she can take prednisone, just can not take it long-term. She is noted to have an allergy with hand swelling. She does not have a true allergy. We discussed [employer] but she is currently without a credit card, she is expecting a new 1 as there was possibly fraud with her old credit card and her bank has issued a new 1 which she has not received yet. Thus, our other option is have her try an albuterol neb here, give her 1st dose of prednisone 20 mg tonight. She wants me to send the inhaler in the rest of the prednisone into the pharmacy. Vital Signs Vital signs: Initial Vital Signs Temperature 99.0 F 09/27/24 20:53 Temperature Source Temporal Artery Scan 09/27/24 20:53 Pulse Rate 70 09/27/24 20:53 Respiratory Rate 16 09/27/24 20:53 Respiratory Effort Normal, Spontaneous, Non-Labored 09/27/24 20:53 Respiratory Depth Normal 09/27/24 20:53 Respiratory Pattern Normal 09/27/24 20:53 Blood Pressure 183/76 H 09/27/24 20:53 Blood Pressure Mean 111 H 09/27/24 20:53 Blood Pressure Position Sitting 09/27/24 20:53 Pulse Oximetry 98 09/27/24 20:53 Oxygen Delivery Method Room Air 09/27/24 20:53 Vital Signs Temperature 99.0 F 09/27/24 20:53 Pulse Rate 70 09/27/24 20:53 Respiratory Rate 16 09/27/24 20:53 Blood Pressure 183/76 H 09/27/24 20:53 Pulse Oximetry 98 09/27/24 20:53 Oxygen Delivery Method Room Air 09/27/24 20:53 Temperature 99.0 F 09/27/24 23:19 Pulse Rate 72 09/27/24 23:19 Respiratory Rate 16 09/27/24 23:19 Blood Pressure 153/84 H 09/27/24 23:19 Pulse Oximetry 98 09/27/24 23:18 Oxygen Delivery Method Room Air 09/27/24 23:18 Medications Administered Medications: Discontinued Medications Generic Name Dose Route Start Last Admin Trade Name Danyq PRN Reason Stop Dose Admin Albuterol 2.5 mg 09/27/24 23:06 09/27/24 23:09 Albuterol Sulfate 2.5 Mg/3 Ml Vial.Neb NEB 09/27/24 23:07 2.5 mg ONCE ONE Administration Prednisone 20 mg 09/27/24 23:06 09/27/24 23:11 Prednisone 10 Mg Tablet PO 09/27/24 23:07 20 mg ONCE ONE Administration Medical Decision Making Lab Data Lab results reviewed: Yes I reviewed the patient's lab results Labs: Lab Results 09/27/24 Range/Units 21:09 SARS-CoV-2 (PCR) Negative SARS-CoV-2 (Negative) Influenza Type A (PCR) Negative PCR FLU A (Negative) Influenza Type B (PCR) Negative PCR FLU B (Negative) RSV (PCR) Negative PCR RSV (Negative) Imaging Data Chest x-ray: Attestation: I have reviewed the pertinent imaging results. My impression: I do not appreciate any infiltrate on my preliminary review. Radiologist's impression: Patient: ANITA FUENTES Facility:?[facility] Patient ID:?[id number] Site Patient ID:?[id number]. Site :?[id number] Study:?XRay-Chest 1V-09/27/2024 10:12:40 PM Ordering Physician:Shira Husain Final Report: Indication: Cough. Technique: Chest 1 view. Comparison: None. Findings/Impression: Cardiomediastinal contours are grossly within normal limits. No definite confluent airspace opacity. No pleural effusion or pneumothorax. No acute osseous abnormality. Dictated by Beltran Kiser MD @ 09/27/2024 10:15:08 PM (Electronic Signature) Discharge Plan Discharge Clinical Impression: Upper respiratory infection, viral, Asthma Patient Disposition: Home, Self-Care Condition: Stable Instructions: Asthma (ED), Upper Respiratory Infection (ED) Additional Instructions: Use albuterol inhaler as prescribed for any wheezing or coughing. Continue with prednisone, recommend taking with food. If you are not improving over the next week, have concerns for worsening at any point, have worsening fevers, worsening cough, increased difficulty breathing or shortness of breath, do need to seek re-evaluation. Activity Level: Activity as Tolerated Prescriptions: New prednisone 20 mg tablet 20 mg PO DAILY Qty: 4 0RF albuterol sulfate 90 mcg/actuation HFA aerosol inhaler 2 puff inhalation Q4-6H PRN (Reason: shortness of breath or wheezing) Qty: 8.5 0RF Rx Instructions: dispense with spacer please No Action acetaminophen [Tylenol Extra Strength] 500 mg tablet 500 mg PO Q6H PRN ibuprofen 200 mg capsule 600 mg PO Q6H PRN tizanidine 2 mg tablet 2 mg PO PRN Patient Comments: TAKE ONE TABLET BY MOUTH EVERY EIGHT HOURS NEEDED FOR MUSCLE SPASM sertraline 100 mg tablet 100 mg PO Q24H Patient Comments: TAKE TWO TABLETS BY MOUTH DAILY levothyroxine 150 mcg tablet 150 mcg PO DAILY Patient Comments: Take 1 Tablet (150 mcg) by mouth before breakfast. dextroamphetamine-amphetamine 10 mg capsule,extended release 24hr 10 mg PO DAILY Patient Comments: TAKE ONE CAPSULE BY MOUTH ONE TIME DAILY montelukast 10 mg tablet 10 mg PO DAILY Patient Comments: Take 1 Tablet (10 mg) by mouth at bedtime diclofenac sodium 1 % gel 2 g TOPICAL QID Patient Comments: Apply 2 g topically to affected area(s) 4 times daily Follow Up/Referrals: Ning Dunn, [Primary Care Provider] - Stand Alone Forms: [facility] Info Instructions
--- NOTE | 2024-09-27 21:08 | CRLHL7_ITS ---
For Patients: As a result of the Century Cures Act, medical imaging exams and procedure reports are released immediately into your electronic medical record. You may view this report before your referring provider. If you have questions, please contact your health care provider. Indication: Cough. Technique: Chest 1 view. Comparison: None. Findings/Impression: Cardiomediastinal contours are grossly within normal limits. No definite confluent airspace opacity. No pleural effusion or pneumothorax. No acute osseous abnormality. Dictated by Beltran Kiser MD @ 09/27/2024 10:15:08 PM (Electronically Signed)
--- OUTSIDE RECORDS SUMMARY | 2024-09-27 21:31 | XMS_ITS | Clinical Summary ---
Author Organization [facility] Address [address] [place] [address] Care Team Providers Care Head Up Operator Helper Name Role Phone Elsewhere, Pcp Primary Care Provider Unavailabl e Source Comments Patient records contain information from all sites at [facility]. For routine questions regarding patient records, call [phone] during business hours, M-F 8:00 AM - 5:00 PM Central Time. Record requests for emergency care only can be directed to [phone] at any time.[facility] Medications No known medications Active Problems No known active problems Family History Medical History Relation Name Comments Alcohol abuse Brother 1 John Pancreatic cancer Brother 1 John Sleep apnea Brother 1 John Arthritis Brother 2 Hayden Drug abuse Brother 2 Hayden Prostate cancer Brother 2 Hayden Diabetes Brother 3 Darrin Drug abuse Brother 3 Darrin Hyperlipidemia Brother 3 Darrin Myopathy Brother 3 Darrin No genetic test ing to dateOne leg is smaller than the other. Psychiatric disorder Brother 3 Darrin Stroke Brother 3 Darrin Asthma Brother 4 Jose L Hyperlipidemia Brother 4 Jose L Learning disorder Brother 4 Jose L Alcohol abuse Brother 5 Jace Colon polyps Father Herb Coronary artery disease Father Herb Depression Father Herb Heart attack Father Herb x11 Hyperlipidemia Father Herb Hypertension Father Herb Lung cancer Father Herb Obesity Father Herb Skin cancer Father Herb Stent Father Herb Colon cancer Father's Brother 1 Bryce L Colon polyps Father's Brother 1 Bryce L Colon cancer Father's Brother 2 Shook Colon polyps Father's Brother 2 Shook Prostate cancer Father's Brother 2 Shook Breast cancer Father's Sister Aunt Jazlyn Asthma Granddaughter Colon cancer Maternal Grandfather Mikhail Colon polyps Maternal Grandfather Mikhail Dementia Maternal Grandfather Mikhail Stroke Maternal Grandfather Mikhail Alcohol abuse Maternal Grandmother Ovidia Dementia Maternal Grandmother Ovidia Stroke Maternal Grandmother Ovidia Colon cancer Mother Alejandra Cause of Colon polyps Mother Alejandra Hyperlipidemia Mother Alejandra Hypertension Mother Alejandra Skin cancer Mother Alejandra Colon cancer Mother's Brother Gonzalo Colon polyps Mother's Brother Gonzalo Colon cancer Paternal Grandfather Bryce D Colon polyps Paternal Grandfather Bryce D Coronary artery disease Paternal Grandfather Bryce D Dementia Paternal Grandmother Consuelo Depression Paternal Grandmother Consuelo Diabetes Paternal Grandmother Consuelo Stroke Paternal Grandmother Consuelo Congenital myotonia Sister 1 Radha due to s odium channelopathy Genetic Disorder Sister 1 Radha Muscular dystrophy Sister 1 Radha ANO5 Asthma Sister 2 Gloria Breast cancer Sister 2 Gloria Depression Sister 2 Gloria Diabetes Sister 2 Gloria Obesity Sister 2 Gloria Other cancer Sister 2 Gloria Uterus Thyroid disease Sister 2 Gloria Depression Sister 3 Karly Migraines Sister 3 Karly Obesity Sister 3 Karly Rheum arthritis Sister 3 Karly ADD Son Mike Anxiety disorder Son Mike Learning disorder Son Mike Muscle stiffness Son Mike Relation Name Status Comments Brother 1 John Brother 2 Hayden Brother 3 Darrin Brother 4 Jose L Brother 5 Jace NO CHILDREN Father Herb Father's Brother 1 Bryce L Father's Brother 2 Shook Father's Sister Aunt Jazlyn Granddaughter Alive Relatively hea lthy Maternal Grandfather Mikhail Maternal Grandmother Ovidia Mother Alejandra Mother's Brother Gonzalo Niece Alive Symptoms Paternal Grandfather Bryce D Paternal Grandmother Consuelo Sister 1 Radha Alive No TTN variant Sister 2 Gloria Sister 3 Karly Son Mike Alive Social History Tobacco Use Types Packs/Day Years Used Date Smoking Tobacco: Never Assessed [facility] Utilities Answer Date Recorded In the past 12 months has [place], gas, oil, or water [email or web address] threatened to shut off services in your home? No 08/28/2023 Exercise Vital Sign Answer Date Recorde d On average, how many days pe r week do you engage in moderate to strenuous exercise (like a brisk walk)? 7 days 08/28/2023 On average, how many minutes do you engage in exercise at this level? 120 min 08/28/2023 Hunger Vital Sign Answer Date Recorded Within the past 12 months, y ou worried that your food would run out before you got the money to buy more. Sometimes true Within the past 12 months, t he food you bought just didn't last and you didn't have money to get more. Sometimes true PRAPARE - Transportation Answer Date Re corded In the past 12 months, has l ack of transportation kept you from medical appointments or from getting medications? No 08/04 In the past 12 months, has l ack of transportation kept you from meetings, work, or from getting things needed for daily living? Yes 08/28/2023 Nutrition Answer Date Recorded On average, how many serving s of fruits and vegetables do you eat per day (serving size is equal to 1 cup or approximately the size of a tennis ball)? 3-5 08/28/2023 Dental Answer Date Recorded Dental: Regular Dentist No 08/28/19 24 Employment Answer Date Recorded Employment status Employed and actively working without restrictions 08/28/2023 Housing Stability Answer Date Recorded What is your living situation today? [facility] 08/28/2023 Comments Unknown Sex and Gender Information Value Date Recorded Sex Assigned at Female 07/13/2023 12:37 AM HALFTONE OPERATOR Legal Sex Female 6:45 AM HALFTONE OPERATOR Gender Identity Female 07/13/2023 12:37 AM HALFTONE OPERATOR Sexual Orientation Straight 07/13/2023 12 :37 AM HALFTONE OPERATOR Last Filed Vital Signs Vital Sign Reading Time Taken Comments Blood Pressure - - Pulse - - Temperature - - Respiratory Rate - - Oxygen Saturation - - Inhaled Oxygen Concentration - - Weight 98.2 kg (216 lb 7.9 oz) 09/01/2023 1:09 P M HALFTONE OPERATOR Height 166 cm (5' 5.35) 09/01/2023 1:09 PM HALFTONE OPERATOR Body Mass Index 35.64 09/01/2023 1:09 PM HALFTONE OPERATOR Plan of Treatment Health Maintenance Due Date Last Done Comments Hepatitis C Screening 1950 COVID-19 Vaccine ( season) 2024 09/27/2023, 04/08/2023, 01/02/2023, Additional history exists Depression Screening (Annual PHQ-2) 07/03/2024 Fall Risk Screen (Annual) 07/03/2024 DTaP,Tdap,and Td Vaccines (4 - Td or Tdap) 03/18/2031 03/18/2021, 05/16/2011, 11/09/2006 Pneumococcal vaccine (50+ years) Completed 10/03/2014, 03/19/2013 Zoster Vaccines Completed 06/14/2018, 03/21/2018 Hepatitis B Screening Discontinued 03/19/2021 Colonoscopy Discontinued 09/15/2021 Colonoscopy Discontinued 09/15/2021 Colorectal Cancer Screening Discontinued Colorectal Cancer Surveillance Discontinued RSV vaccine - (32-36 weeks) or 60+ years Completed 04/08/2023 Mammogram Discontinued 07/07/2023, 11/2023, 04/19/2022, Additional history exists Influenza Vaccine Completed 03/06/2024, , 03/17/2022, Additional history exists CT Colonography Discontinued CT Colonography Discontinued Cologuard Discontinued FIT Discontinued IPV Vaccines Aged Out No longer eligi ble based on patient's age to complete this topic Insurance [address] [place] [id number] MEDICARE [facility] Care Teams Head Up Operator Helper Relationship Specialty Start Date End Date Elsewhere, Pcp PCP - General Internal Medicine 09/01/23
--- OUTSIDE RECORDS SUMMARY | 2024-09-27 21:31 | XMS_ITS | Clinical Summary ---
Author Organization [employer] Address [address] [place] [address] Care Team Providers Care Dining Room Captain Name Role Phone Megan Woods MD Unavailable [phone] Ning Dunn DO Primary Care Provider [phone] Allergies Active Allergy Reactions Criticality Noted Date [...] Itchy rash, burning Latex, Natural Rubber Hives,Rash Hilliard Other - Describe In Comment Field High [...] muscle issues Shellfish Containing Products Dizziness 06/05/2014 Qbanxlu-Dxw-Rgq Reductase Inhibitors Myalgia 08/18/2011 Sulfa (Sulfonamide Antibiotics) [...] magic mouthwash 1:1:1 (diphen 12.5mg/5mL-lidocai ne 2%-maalox [phone]/5ml) (AMB MIX)Indications:Mo uth sore Swish and spit [...] 2015: Referral placed for further evaluation at [facility] as patient reports progressing symptoms. Neuropathic [...] muscular disorder Saw neuromuscular specialist at the [facility] per patient Has chronically elevated CK. 2014 saw Rheumatology and neurology with no known etiology for symptoms Referral [facility] for further evaluation regarding symptoms is pending [...] Department Care Team Description 09/25/2024 Medical Messaging [facility] [address] [place] [address] Ning Dunn DO Referral request 09/09/2024 Nurse Triage [facility] [address] [place] [address] Ning Dunn DO Blood Body Fluid Exposure; Sores In Mouth 09/09/2024 Telephone [facility] [address] [place] [address] Ning Dunn DO OTHER (Mrsa) 09/04/2024 2:20 PM [facility] Telemedicine [facility] [address] [place] [address] Ning Dunn DO Shoulder Pain/problem (Bilateral shoulder and upper arms ongoing getting worse-referral [facility] for injections); Medication Management (2 tylenol 3 times daily, 3 ibuprofen 3 times daily-liver); Refill Request (Magic mouthwash for sore in mouth) 07/30/2024 3:00 PM [facility] Telemedicine [facility] [address] [place] [address] Hayden Blanc MD 07/30/2024 Travel 07/11/2024 Refill [facility] [address] [place] [address] Ning Dunn DO Refill Request (Dextroamphetamine- amphetamine) 07/10/2024 2:30 PM [facility] Office Visit [facility] [address] [place] [address] Aamir Rosas MD Sleep Follow-up 07/10/2024 Travel [...] AM CDT Legal Sex Female 6:09 AM [facility] [facility] [facility] Gender Identity Female 03/12/2020 1:26 AM CDT [...] Comments Blood Pressure 169/78 07/10/2024 2:44 PM [facility] Pulse 57 07/10/2024 2:36 PM [facility] [facility] [facility] Temperature 36.9 C (98.5 F) 03/11/2021 1:17 PM CDT Respiratory Rate 12 04/08/2019 2:35 PM CDT Oxygen Saturation 96% 07/10/2024 2:36 PM [facility] Inhaled Oxygen Concentration - - Weight 104 kg (229 lb 3.2 oz) 07/10/2024 2:36 PM [facility] Height 162.6 cm (5' 4) 07/10/2024 2:36 PM [facility] [facility] Body Mass Index 39.34 07/10/2024 2:36 PM [facility] Plan of Treatment Upcoming Encounters Date Type Department Care Team (Late st Contact Info) Description 10/09/2024 10:50 AM CDT Office Visit [facility] [address] [place] [address] Ning Dunn DO [address] [place] [address] Health Maintenance Due Date Last Done Comments [...] age 50+ Completed 10/11/2014 (Completed outside of [facility]), 10/03/2014, 03/19/2013 Zoster (shingles) series for age [...] huma Non-React huma 03/20/2021 11:31 PM CDT [facility] Comment:Antibodies to HCV no t detected; does not exclude the possibility of exposure to HCV. Blood BLOOD SPECIMEN / Unknown Venipuncture / Unknown 03/19/2021 3:41 PM CDT 03/19/2021 3:41 PM CDT Ning Dunn DO SEND OUTS [facility] [address] [place] [address], [place] * XR DXA BONE DENSITY 1 SITE AXIAL AND 1 SITE PERIPHERAL (04/29/2020 1:54 PM CDT) Anatomical Region Laterality Modality LUMBAR SPINE Other Narrative 05/10/2020 3:57 PM [facility] Please see scanned document for results of this study. Ning Dunn DO DEXA Final Resu lt from Last 3 Months or Most Recently Relevant to Health Maintenance Insurance [address] [place] [address] MEDICARE PB ONLY MEDICARE PART A HB ONLY MEDICARE PART B HB ONLY [facility] FAMILY INSURANCE MEDICARE [place] ONLY [id number] [place] [id number] COMMERCIAL [id number] [facility] [place] [id number] Advance Directives Documents on File Type Date Recorded Patient Form Setter Helper Expl anation Healthcare Directive 06/08/2015 2:32 PM [facility], 05/26/2015 Care Teams Dining Room Captain Relationship Specialty Start Date End [place] [address] PCP - General Family Practice 04/16/15 Megan Woods MD [address] [place] [address] Rheumatology Rheumatology 11/07/14
--- OUTSIDE RECORDS SUMMARY | 2024-09-27 21:31 | XMS_ITS | Clinical Summary ---
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/19 Karmen Darlene Cherucheril PA-C Muscular dystrophy Other lesions of median nerve, bilateral upper limbs 211837624 (SNOMED CT) 11/24 Active 11/24 Michael Weems MD Lesion of median nerve Bladder instability 306695558 (SNOMED CT) 10/31 Active 10/31 Afshin Hsu MD Irritability of urinary bladder Numbness, hand 937432559 (SNOMED CT) 08/24 Active 08/24 Karmen Darlene Cherucheril PA-C Numbness of limbs Upper arm pain, right 392938010 (SNOMED CT) 08/24 Active 08/24 Karmen Darlene Cherucheril PA-C Pain in right arm Upper arm pain, left 310933368 (SNOMED CT) 08/24 Active 08/24 Karmen Darlene Cherucheril PA-C Pain in left arm Shoulder pain, right 09715336592 926432 (SNOMED CT) 08/24 Active 08/24 Karmen Darlene Cherucheril PA-C Pain of right shoulder joint Shoulder pain, left 76165512515 542362 (SNOMED CT) 08/24 Active 08/24 Karmen Carrera PA-C Pain of left shoulder joint Lumbar radiculopat hy, left 677313648 (SNOMED CT) 07/21 Active 07/21 Afshin Hsu MD Lumbar radiculopathy Myopathy 085293682 (SNOMED CT) 03/22 Active 03/22 Karmen Carrera PA-C Disorder of muscle Sleep disturbance , nos 18169697 (SNOMED CT) 02/24 Active 02/24 Rodolfo Conrad MD Sleep apnea Syncope 665213360 (SNOMED CT) 08/16 Active 08/17 Rodolfo Conrad MD Syncope History of head injury 514197474 (SNOMED CT) 08/02 Active 08/02 Rodolfo Conrad MD History of head injury Strain of muscle, fascia and tendon at neck level, sequela S16.1xxS (ICD-10-CM) 12/11 Active 12/11 Monika Alicia Fletcher DNP,AIR INTERCEPT CONTROLLER SUPERVISOR,CN P Strain of muscle, fascia and tendon at neck level, sequela Lumbar disc degeneratio n 24905428 (SNOMED CT) 12/11 Active 12/11 Monika Alicia Fletcher DNP,AIR INTERCEPT CONTROLLER SUPERVISOR,CN P Degeneration of lumbar intervertebral disc Weakness of right leg 174628999 (SNOMED CT) 07/11 Active 07/11 Monika Alicia Fletcher DNP,AIR INTERCEPT CONTROLLER SUPERVISOR,CN P Monoparesis of lower limb Lumbar degenerativ e disc 722.52 (ICD-9-CM) 12/11 Inactive 12/11 Brent Mcgraw DO Degeneration of lumbar or lumbosacral intervertebral disc Low back pain 211896147 (SNOMED CT) 12/11 Active 12/11 Brent Brockmann DO Low back pain Leg pain 14236384 (SNOMED CT) 12/11 Active 12/11 Brent Mcgraw DO Pain in lower limb Dysequilibr ium 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 (SNOMED CT) 12/11 Active 12/11 Brent Mcgraw DO Dysequilibrium syndrome Cervical strain 420998093 (SNOMED CT) 12/11 Inactive 12/11 Brent Mcgraw DO Strain of neck muscle Low back pain 473924097 (SNOMED CT) 12/11 Active 12/11 Brent Mcgraw DO Low back pain ULNAR NEUROPATHY 527122880 (SNOMED CT) 08/17 Active 08/17 Harvey Camara MD Ulnar neuropathy UNSPECIFIED VITAMIN D DEFICIENCY 93433095 (SNOMED CT) 07/05 Active 07/05 Brent Mcgraw DO Vitamin D deficiency HYPOTHYROID ISM 66085861 (OMED CT) 07/05 Active 07/05 Brent cMgraw DO Hypothyroidism MUSCULOSKEL ETAL SYMPTOMS, NOS R29.898 (ICD-10-CM) 08/04 Active 08/04 Brent Mcgraw DO Other symptoms and signs involving the musculoskeleta l system MUSCLE WEAKNESS 79185515 (SNOMED CT) 08/04 Active 08/04 Brent Mcgraw DO Muscle weakness Medications Medication Instructions Start Date Stop Date Generic Name [facility] Provider AMPHETAMINE-DEXT ROAMPHET ER 10 MG [id number] 02/13 dextroamphetamine -amphetamine 69553048192 Afshin Hsu MD AMPHETAMINE-DEXT ROAMPHET ER 10 MG [id number] take 1 pill every morning as needed dextroamphetamine -amphetamine 31518650880 Afshin Hsu MD MELOXICAM 15 MG TABS 01/15 meloxicam 06896982751 Karmen Carrera PA-C COMBIVENT RESPIMAT 20-100 MCG/ACT AERS as needed 01/15 ipratropium-albut joseline 44067481050 Karmen Carrera PA-C BACTROBAN 2 % EXTERNAL OINTMENT as needed 01/15 BACTROBAN 2 % EXTERNAL OINTMENT Karmen Darlene Cherucheril PA-C MECLIZINE HCL 25 MG TABS as needed 01/15 meclizine 95921626393 Karmen Guzmanyo MOREJON-C EZETIMIBE 10 MG TABS ezetimibe 96210234155 Karmen Carrera JEAN-PIERRE-C AMPHETAMINE-DEXT ROAMPHET ER 10 MG [id number] 11/15 dextroamphetamine -amphetamine 78729381188 Karmen Guzmanyo MOREJON-C ADULT ASPIRIN EC LOW STRENGTH 81 MG ORAL TABLET DELAYED RELEASE 1 once a day 03/22 ADULT ASPIRIN EC LOW STRENGTH 81 MG ORAL TABLET DELAYED RELEASE Monika Fletcher DNP,AIR INTERCEPT CONTROLLER SUPERVISOR,FOOD COUNTER ATTENDANT LEVOFLOXACIN 500 MG TABS 03/22 levofloxacin 32022055202 Monika Fletcher DNP,AIR INTERCEPT CONTROLLER SUPERVISOR,FOOD COUNTER ATTENDANT MONTELUKAST SODIUM 10 MG TABS montelukast 23668729371 Monika Fletcher DNP,AIR INTERCEPT CONTROLLER SUPERVISOR,FOOD COUNTER ATTENDANT OXYBUTYNIN CHLORIDE ER 10 MG [id number] 03/22 oxybutynin chloride 33452587805 Monika Fletcher DNP,AIR INTERCEPT CONTROLLER SUPERVISOR,FOOD COUNTER ATTENDANT MECLIZINE HCL 25 MG TABS as needed 01/15 meclizine 20776450780 Monika Fletcher DNP,AIR INTERCEPT CONTROLLER SUPERVISOR,FOOD COUNTER ATTENDANT COMBIVENT RESPIMAT 20-100 MCG/ACT AERS as needed 01/15 ipratropium-albut joseline 35522138855 Monika Fletcher DNP,AIR INTERCEPT CONTROLLER SUPERVISOR,FOOD COUNTER ATTENDANT LEVOTHYROXINE SODIUM 150 MCG TABS levothyroxine 00995819756 Monika Fletcher DNP,AIR INTERCEPT CONTROLLER SUPERVISOR,FOOD COUNTER ATTENDANT EPIPEN 2-NICKOLAS 0.3 MG/0.3ML SOAJ epinephrine 97848967535 Monika Fletcher DNP,AIR INTERCEPT CONTROLLER SUPERVISOR,FOOD COUNTER ATTENDANT BACTROBAN 2 % EXTERNAL OINTMENT as needed 01/15 BACTROBAN 2 % EXTERNAL OINTMENT Monika Fletcher DNP,AIR INTERCEPT CONTROLLER SUPERVISOR,FOOD COUNTER ATTENDANT MELOXICAM 15 MG TABS 01/15 meloxicam 81830986235 Monika Fletcher DNP,AIR INTERCEPT CONTROLLER SUPERVISOR,FOOD COUNTER ATTENDANT AMLODIPINE BESYLATE 2.5 MG TABS 03/22 amlodipine 72396591390 Monika Fletcher DNP,AIR INTERCEPT CONTROLLER SUPERVISOR,FOOD COUNTER ATTENDANT D 5000 125 MCG (5000 UT) CAPS once a day cholecalciferol (vitamin d3) 69869860943 Monika Fletcher DNP,AIR INTERCEPT CONTROLLER SUPERVISOR,FOOD COUNTER ATTENDANT FLUZONE HIGH-DOSE 0.5 ML INTRAMUSCULAR SUSPENSION PREFILLED SYRINGE 03/22 FLUZONE HIGH-DOSE 0.5 ML INTRAMUSCULAR SUSPENSION PREFILLED SYRINGE Monika Fletcher DNP,AIR INTERCEPT CONTROLLER SUPERVISOR,FOOD COUNTER ATTENDANT SERTRALINE HCL 100 MG TABS sertraline 47587072213 Monika Fletcher DNP,AIR INTERCEPT CONTROLLER SUPERVISOR,FOOD COUNTER ATTENDANT DULERA AERO 08/23 MOMETASONE FURO-FORMOTEROL FUM AERO 74182568354 Rodolfo Conrad MD AMMONIUM LACTATE 12 % CREA as needed 08/23 AMMONIUM LACTATE 02667949484 Rodolfo Conrad MD AMMONIUM LACTATE 12 % CREA as needed 10/15 AMMONIUM LACTATE 71245285639 Monika Fletcher DNP,AIR INTERCEPT CONTROLLER SUPERVISOR,FOOD COUNTER ATTENDANT BACTROBAN 2 % EXTERNAL OINTMENT as needed 03/22 MUPIROCIN 26951700576 Monika Fletcher DNP,AIR INTERCEPT CONTROLLER SUPERVISOR,FOOD COUNTER ATTENDANT MECLIZINE HCL 25 MG TABS as needed 03/22 MECLIZINE HCL 87822418111 Monika Fletcher DNP,AIR INTERCEPT CONTROLLER SUPERVISOR,FOOD COUNTER ATTENDANT DULERA AERO 08/23 MOMETASONE FURO-FORMOTEROL FUM AERO 30674040901 Monika Fletcher DNP,AIR INTERCEPT CONTROLLER SUPERVISOR,FOOD COUNTER ATTENDANT VITAMIN D3 125 MCG (5000 UT) CAPS daily 03/22 CHOLECALCIFEROL 86055846798 Monika Fletcher DNP,AIR INTERCEPT CONTROLLER SUPERVISOR,FOOD COUNTER ATTENDANT COMBIVENT RESPIMAT AERS as needed 03/22 IPRATROPIUM-ALBUT JOSELINE AERS 37423488991 Monika Fletcher DNP,AIR INTERCEPT CONTROLLER SUPERVISOR,FOOD COUNTER ATTENDANT ADULT ASPIRIN EC LOW STRENGTH 81 MG ORAL TABLET DELAYED RELEASE One pill daily 03/22 ASPIRIN 18974192017 Monika Fletcher DNP,AIR INTERCEPT CONTROLLER SUPERVISOR,FOOD COUNTER ATTENDANT EPIPEN 2-NICKOLAS 0.3 MG/0.3ML SOAJ 10/15 EPINEPHRINE 68431417226 Monika Fletcher DNP,AIR INTERCEPT CONTROLLER SUPERVISOR,FOOD COUNTER ATTENDANT OXYBUTYNIN CHLORIDE ER 10 MG [id number]-AMS 08/17 OXYBUTYNIN CHLORIDE 61437197918 Monika Fletcher DNP,AIR INTERCEPT CONTROLLER SUPERVISOR,FOOD COUNTER ATTENDANT SERTRALINE HCL 100 MG TABS 03/22 SERTRALINE HCL 83998673213 Monika Fletcher DNP,AIR INTERCEPT CONTROLLER SUPERVISOR,FOOD COUNTER ATTENDANT MONTELUKAST SODIUM 10 MG TABS 03/22 MONTELUKAST SODIUM 58516311612 Monika Fletcher DNP,AIR INTERCEPT CONTROLLER SUPERVISOR,FOOD COUNTER ATTENDANT LEVOTHYROXINE SODIUM 150 MCG TABS 10/15 LEVOTHYROXINE SODIUM 04490457929 Monika Fletcher DNP,AIR INTERCEPT CONTROLLER SUPERVISOR,FOOD COUNTER ATTENDANT AMLODIPINE BESYLATE 2.5 MG TABS 10/15 AMLODIPINE BESYLATE 96044934240 Monika Fletcher DNP,AIR INTERCEPT CONTROLLER SUPERVISOR,FOOD COUNTER ATTENDANT FLUZONE HIGH-DOSE 0.5 ML DESTINY INFLUENZA VAC SPLIT HIGH-DOSE 62752904797 Monika Fletcher DNP,AIR INTERCEPT CONTROLLER SUPERVISOR,FOOD COUNTER ATTENDANT MELOXICAM 15 MG TABS 03/22 MELOXICAM 38494551811 Monika Fletcher DNP,AIR INTERCEPT CONTROLLER SUPERVISOR,FOOD COUNTER ATTENDANT LEVOFLOXACIN 500 MG TABS 03/22 LEVOFLOXACIN 52027466410 Monika Fletcher DNP,AIR INTERCEPT CONTROLLER SUPERVISOR,FOOD COUNTER ATTENDANT ZANAFLEX 4MG 1 po qhs and bid prn muscle stiffness and pain 07/11 ZANAFLEX 4MG Monika Fletcher DNP,AIR INTERCEPT CONTROLLER SUPERVISOR,FOOD COUNTER ATTENDANT LYRICA 75 MG CAPS 1 po bid 02/26 PREGABALIN 76211382713 Kendy Soto MS PA-C LYRICA 50 MG CAPS take 1 tab daily in am 02/26 PREGABALIN 16457219088 Kendy Soto MS PA-C LYRICA 50 MG CAPS take 1 tab daily in am 10/15 PREGABALIN 97010315047 Kendy Soto MS PA-C LYRICA 75 MG CAPS 1 po bid 10/15 PREGABALIN 99039808937 Brent AliciaFelipa Tarrel DO ZANAFLEX 4MG 1 [...] hands and feet Critical Active Monika Fletcher DNP,AIR INTERCEPT CONTROLLER SUPERVISOR,FOOD COUNTER ATTENDANT GABAPENTIN myalgia Critical Active Monika Fletcher DNP,AIR INTERCEPT CONTROLLER SUPERVISOR,FOOD COUNTER ATTENDANT SHELLFISH anaphylactic reaction Critical Active Monika Fletcher DNP,AIR INTERCEPT CONTROLLER SUPERVISOR,FOOD COUNTER ATTENDANT CHOLESTOFF PLUS myalgia pain Critical Active Monika Fletcher DNP,AIR INTERCEPT CONTROLLER SUPERVISOR,FOOD COUNTER ATTENDANT FENOFIBRATE myalgia pain Critical Active Monika Cristobaligel DNP,AIR INTERCEPT CONTROLLER SUPERVISOR,FOOD COUNTER ATTENDANT DICYCLOMINE HCL confusion Critical Active Monika Fletcher DNP,AIR INTERCEPT CONTROLLER SUPERVISOR,FOOD COUNTER ATTENDANT ADHESIVE BANDAGES blisters Critical Active Valdez Fletcher DNP,AIR INTERCEPT CONTROLLER SUPERVISOR,FOOD COUNTER ATTENDANT ATORVASTATIN CALCIUM severe myalgia and pain Critical Active Monika Cristobaligel DNP,AIR INTERCEPT CONTROLLER SUPERVISOR,FOOD COUNTER ATTENDANT FLUTICASONE PROPIONATE rash Critical No Longer Active Monika Fletcher DNP,AIR INTERCEPT CONTROLLER SUPERVISOR,FOOD COUNTER ATTENDANT MEIJER ANTIHISTAMINE ALLERGY paradoxical effect Critical Active Monika Cristobaligel DNP,AIR INTERCEPT CONTROLLER SUPERVISOR,FOOD COUNTER ATTENDANT BUPROPION HCL anxiety and confusion Critical Act huma Monika Fletcher DNP,AIR INTERCEPT CONTROLLER SUPERVISOR,FOOD COUNTER ATTENDANT THEOPHYLLINE neurological issues Critical Active Monika Fletcher DNP,AIR INTERCEPT CONTROLLER SUPERVISOR,FOOD COUNTER ATTENDANT CARBAMAZEPINE rash-Dexter Babatunde' s syndrome Critical Active Monika Fletcher DNP,AIR INTERCEPT CONTROLLER SUPERVISOR,FOOD COUNTER ATTENDANT SULFAMETHOXAZOLE-TRI METHOPRIM allergic reaction of confusion and vomiting Critical Active Monika Fletcher DNP,AIR INTERCEPT CONTROLLER SUPERVISOR,FOOD COUNTER ATTENDANT METHYLPHENIDATE HCL heart issues Critical Active Monika Cristobaligel DNP,AIR INTERCEPT CONTROLLER SUPERVISOR,FOOD COUNTER ATTENDANT NABUMETONE allergic rash Critical Active Monika Cristobaligel DNP,AIR INTERCEPT CONTROLLER SUPERVISOR,FOOD COUNTER ATTENDANT METOCLOPRAMIDE HCL allergic rash Critical Active Monika Cristobaligel DNP,AIR INTERCEPT CONTROLLER SUPERVISOR,FOOD COUNTER ATTENDANT FLUOXETINE HCL hypertension Critical Active A richardson Fletcher DNP,AIR INTERCEPT CONTROLLER SUPERVISOR,FOOD COUNTER ATTENDANT PREDNISONE (NICKOLAS) swelling and lung issues Critical Active Monika Fletcher DNP,AIR INTERCEPT CONTROLLER SUPERVISOR,FOOD COUNTER ATTENDANT PENICILLIN G POTASSIUM allergic rash Critical Active Monika Fletcher DNP,AIR INTERCEPT CONTROLLER SUPERVISOR,FOOD COUNTER ATTENDANT IBUPROFEN esophagitis Critical Active Monika Fletcher DNP,AIR INTERCEPT CONTROLLER SUPERVISOR,FOOD COUNTER ATTENDANT METHACHOLINE/LIVER blisters on skin Critical Act huma Monika Fletcher DNP,AIR INTERCEPT CONTROLLER SUPERVISOR,FOOD COUNTER ATTENDANT CODEINE SULFATE restricted breathing Critical Ac tive Monika Fletcher DNP,AIR INTERCEPT CONTROLLER SUPERVISOR,FOOD COUNTER ATTENDANT LITHIUM CARBONATE muscle weakness and semiconsciousness Critical Active Monika Fletcher DNP,AIR INTERCEPT CONTROLLER SUPERVISOR,FOOD COUNTER ATTENDANT LORAZEPAM addiction Critical Active Monika Fletcher DNP,AIR INTERCEPT CONTROLLER SUPERVISOR,FOOD COUNTER ATTENDANT Results Date Name Value Unit Range Flag [...] 12:00 PM Michael Weems MD , [address], [address], [place], [address], Pending order Follow up Pending order Follow [...] with Neurologist or JERAD ORDERS Patient Instructions SCT-[id number] Other Referral SCT-[id number] Other Referral ORDERS Other Lab ORDERS Follow up ORDERS Other Order ORDERS Patient Instructions ORDERS Patient Instructions ORDERS Obtain outside records 12/09 CPT-65360 Nerve Conduction 13 or more studies 11/24 CPT-31194 EMG with NCS (5+ muscles) - 3 limbs 11/24 [id number] MRI-Thoracic W/O CPT-01854 MRI Thoracic W/O [facility]-[id number] Other Referral ORDERS Physical Therapy ORDERS EMG [...] Therapy ORDERS Physical Therapy ORDERS Other Order [id number] MRI-Lumbar W/O ORDERS Follow up ORDERS Other Order ORDERS EMG bilateral upper ext 2020 ORDERS EMG bilateral low ext 03/22 CPT-11617 Nerve Conduction 9-10 studies CPT-93137 EMG with NCS (5+ muscles) - 2 limbs 03/31 ORDERS Follow up ORDERS Other Order ORDERS Follow up SCT-[id number] Documentation of current medicatio ns ORDERS Follow up SCT-[id number] Documentation of current medicatio ns LOINC 28250-5 Fall risk assessment 09/01 ORDERS Sleep Consult LOINC 53668-8 Fall risk assessment 02/24 SCT-[id number] Documentation of current medicatio ns ORDERS Follow up SCT-[id number] Fall risk assessment (procedure) SCT-[id number] Documentation of current medicatio ns CPT-98735 EEG EXTENDED 61-119mins (END) ORDERS EEG Extended SCT-[id number] Fall risk assessment (procedure) SCT-465750795 Fall risk assessment (procedure) SCT-[id number] Documentation of current medicatio ns SCT-[id number] Fall risk assessment (procedure) ORDERS Patient Instructions [id number] MRI-Lumbar W/O CPT-78922 MRI Lumbar W/O ORDERS Patient Instructions [facility]-[id number] Documentation of current medicatio ns [facility]-[id number] Other Referral CPT-26635 Nerve Conduction 5-6 studies CPT-62588 EMG with NCS (5+ muscles) - 2 limbs 12/26 CPT-28315 Sensory NCS x 6 CPT-60321 Motor NCS and Fwave x 4 2008 CPT-09548 H-reflex x 1 CPT-07743 EMG 2 limb Vital Signs Date Name [...]
[2024-09-27 22:34] LABS: PCR FLU A Negative PCR FLU A (Negative); PCR FLU B Negative PCR FLU B (Negative); PCR RSV Negative PCR RSV (Negative); SARS PCR* Negative SARS-CoV-2 (Negative)
[2024-09-27] MEDS: ALBUTEROL SULFATE 2.5 MG/3 ML VIAL.NEB NEB (23:09)
[2024-09-27] MEDS: predniSONE 10 MG TABLET 20 MG PO (23:11)
[2024-09-27 23:18] VITALS: BP 153/84; PULSE 72; RESP 16; TEMP 37.2; O2SAT 98
[2024-09-27 23:19] VITALS: BP 153/84; PULSE 72; RESP 16; TEMP 37.2
== END 2024-09-27 23:35 | disposition home or self-care (01) ==
PROVIDERS: Emergency Provider Family Medicine; PCP Family Medicine
DX: J06.9 Acute upper respiratory infection, unspecified (principal); J45.909 Unspecified asthma, uncomplicated
CPT/HCPCS: 71045; 87631; 94640; 99283; 99284; J7512

== ENCOUNTER 2024-09-28 17:25 | Emergency (ER) | payer MEDICARE, BC, SELFPAY ==
--- OUTSIDE RECORDS SUMMARY | 2024-09-28 17:27 | XMS_ITS | Continuity of Care Document ---
Author Organization [facility] enter Address [address] [place] [address] [address] Phone Care Team Providers Care Review Consultant Name Role Phone [facility] Unavailable Unava ilable Procedures Procedure Date INJECT SACROILIAC JOINT Inj for sacroiliac jt anesth NEEDLE LOCALIZATION BY XRAY Advance Directives Directive Yes / No Effective Date File Name No Information Encounters Encounter Description Practice Location Reason(s) For Visit Diagnoses Date Provider Providers Copied on Encounter [facility], [address] [place] [address], [id number], tel:[phone] [facility] No Information 3 [facility]. [address] [place] [address], [id number], . tel:[phone] Referring Provider: Beltran Pittman, [address] [place], [address] . tel:[phone] Family History Family Member Type Diagnosis Age At Onset No Information Payers Payer name Insurance type Covered alliance party ID Authoriza tion(s) Medicare MB [id number] [facility] [id number] Social History Type Description Quantity Date Captured Comments Sex Female Smoking Status No Information Chief Complaint And Reason For Visit No Information Reason For Referral Reason For Referral No Information History Of Present Illness Encounter Date Complaint History Of Prese nt Illness No Information Functional Status Date Functional Assessmen t No Information Instructions Date Instruction Additional Infor mation No Information Assessments Type Assessment Date No Information Patient Care Teams Name Effective Dates (start - stop) Status Members No Information
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
--- OUTSIDE RECORDS SUMMARY | 2024-09-28 17:27 | XMS_ITS | Clinical Summary ---
Author Organization [facility] Address [address] [place] [address] Care Team Providers Care Director Compliance Name Role Phone Elsewhere, Pcp Primary Care Provider Unavailabl e Source Comments Patient records contain information from all sites at [facility]. For routine questions regarding patient records, call [phone] during business hours, M-F 8:00 AM - 5:00 PM Central Time. Record requests for emergency care only can be directed to [phone] at any time.[facility] Medications No known medications Active Problems No [...] Coronary artery disease Father Herb Depression Father Ehrb Heart attack Father Herb x11 Hyperlipidemia Father [...] Years Used Date Smoking Tobacco: Never Assessed [facility] Utilities Answer Date Recorded In the past 12 months has [employer], gas, oil, or water [employer] threatened to shut off services in your [...] your living situation today? I have a [facility] place to live 08/28/2023 Comments Unknown Sex and Gender Information Value Date Recorded Sex Assigned at Female 07/13/2023 12:37 AM PLANT GUIDE Legal Sex Female 6:45 AM PLANT GUIDE Gender Identity Female 07/13/2023 12:37 AM PLANT GUIDE Sexual Orientation Straight 07/13/2023 12 :37 AM PLANT GUIDE Last Filed Vital Signs Vital Sign Reading Time Taken Comments Blood Pressure - - Pulse - - Temperature - - Respiratory Rate - - Oxygen Saturation - - Inhaled Oxygen Concentration - - Weight 98.2 kg (216 lb 7.9 oz) 09/01/2023 1:09 P M PLANT GUIDE Height 166 cm (5' 5.35) 09/01/2023 1:09 PM PLANT GUIDE Body Mass Index 35.64 09/01/2023 1:09 PM PLANT GUIDE Plan of Treatment Health Maintenance Due Date [...] complete this topic Insurance Dr [address] [place] [id number] MEDICARE [facility] Care Teams Director Compliance Relationship Specialty Start Date End Date Elsewhere, Pcp PCP - General Internal Medicine 09/01/23
--- OUTSIDE RECORDS SUMMARY | 2024-09-28 17:27 | XMS_ITS | Clinical Summary ---
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/19 Karmen Darlene Cherucheril PA-C Muscular dystrophy Other lesions of median nerve, bilateral upper limbs 570169220 (SNOMED CT) 11/24 Active 11/24 Michael Weems MD Lesion of median nerve Bladder instability 178487799 (SNOMED CT) 10/31 Active 10/31 Afshin Hsu MD Irritability of urinary bladder Numbness, hand 596374615 (SNOMED CT) 08/24 Active 08/24 Karmen Darlene Cherucheril PA-C Numbness of limbs Upper arm pain, right 339052106 (SNOMED CT) 08/24 Active 08/24 Karmen Darlene Cherucheril PA-C Pain in right arm Upper arm pain, left 003108481 (SNOMED CT) 08/24 Active 08/24 Karmen Darlene Cherucheril PA-C Pain in left arm Shoulder pain, right 41435118396 065965 (SNOMED CT) 08/24 Active 08/24 Karmen Darlene Cherucheril PA-C Pain of right shoulder joint Shoulder pain, left 76592743264 712311 (SNOMED CT) 08/24 Active 08/24 Karmen Carrera PA-C Pain of left shoulder joint Lumbar radiculopat hy, left 232272053 (SNOMED CT) 07/21 Active 07/21 Afshin Hsu MD Lumbar radiculopathy Myopathy 444560939 (SNOMED CT) 03/22 Active 03/22 Karmen Carrera PA-C Disorder of muscle Sleep disturbance , nos 98629994 (SNOMED CT) 02/24 Active 02/24 Rodolfo Conrad MD Sleep apnea Syncope 521717668 (SNOMED CT) 08/16 Active 08/17 Rodolfo Conrad MD Syncope History of head injury 153511702 (SNOMED CT) 08/02 Active 08/02 Rodolfo Conrad MD History of head injury Strain of muscle, fascia and tendon at neck level, sequela S16.1xxS (ICD-10-CM) 12/11 Active 12/11 Monika Alicia Fletcher DNP,JAVA XML DEVELOPER,CN P Strain of muscle, fascia and tendon at neck level, sequela Lumbar disc degeneratio n 54616485 (SNOMED CT) 12/11 Active 12/11 Monika Alicia Fletcher DNP,JAVA XML DEVELOPER,CN P Degeneration of lumbar intervertebral disc Weakness of right leg 377494441 (SNOMED CT) 07/11 Active 07/11 Monika Alicia Fletcher DNP,JAVA XML DEVELOPER,CN P Monoparesis of lower limb Lumbar degenerativ e disc 722.52 (ICD-9-CM) 12/11 Inactive 12/11 Brent Mcgraw DO Degeneration of lumbar or lumbosacral intervertebral disc Low back pain 522828425 (SNOMED CT) 12/11 Active 12/11 Brent Brockmann DO Low back pain Leg pain 65739366 (SNOMED CT) 12/11 Active 12/11 Brent Mcgraw DO Pain in lower limb Dysequilibr ium 091356972 (SNOMED CT) 12/11 Active 12/11 Brent Mcgraw DO Dysequilibrium syndrome Cervical strain 686937723 (SNOMED CT) 12/11 Inactive 12/11 Brent Mcgraw DO Strain of neck muscle Low back pain 703816374 (SNOMED CT) 12/11 Active 12/11 Brent Mcgraw DO Low back pain ULNAR NEUROPATHY 539017672 (SNOMED CT) 08/17 Active 08/17 Harvey Camara MD Ulnar neuropathy UNSPECIFIED VITAMIN D DEFICIENCY 18500080 (SNOMED CT) 07/05 Active 07/05 Brent Mcgraw DO Vitamin D deficiency HYPOTHYROID ISM 18731400 (OMED CT) 07/05 Active 07/05 Brent Mcgraw DO Hypothyroidism MUSCULOSKEL ETAL SYMPTOMS, NOS R29.898 (ICD-10-CM) 08/04 Active 08/04 Brent Mcgraw DO Other symptoms and signs involving the musculoskeleta l system MUSCLE WEAKNESS 87053476 (SNOMED CT) 08/04 Active 08/04 Brent Mcgraw DO Muscle weakness Medications Medication Instructions Start Date Stop Date Generic Name [facility][NOTE 3] Provider AMPHETAMINE-DEXT ROAMPHET ER 10 MG [id number] 02/13 dextroamphetamine -amphetamine 30581300558 Afshin Hsu MD AMPHETAMINE-DEXT ROAMPHET ER 10 MG [id number] take 1 pill every morning as needed dextroamphetamine -amphetamine 74707663291 Afshin Hsu MD MELOXICAM 15 MG TABS 01/15 meloxicam 37556144239 Karmen Carrera PA-C COMBIVENT RESPIMAT 20-100 MCG/ACT AERS as needed 01/15 ipratropium-albut joseline 57416054360 Karmen Carrera PA-C BACTROBAN 2 % EXTERNAL OINTMENT as needed 01/15 BACTROBAN 2 % EXTERNAL OINTMENT Karmen Darlene Cherucheril PA-C MECLIZINE HCL 25 MG TABS as needed 01/15 meclizine 58516080927 Karmen Guzmanyo MOREJON-C EZETIMIBE 10 MG TABS ezetimibe 44551904165 Karmen Carrera JEAN-PIERRE-C AMPHETAMINE-DEXT ROAMPHET ER 10 MG [id number] 11/15 dextroamphetamine -amphetamine 88066876267 Karmen Guzmanyo MOREJON-C ADULT ASPIRIN EC LOW STRENGTH 81 MG ORAL TABLET DELAYED RELEASE 1 once a day 03/22 ADULT ASPIRIN EC LOW STRENGTH 81 MG ORAL TABLET DELAYED RELEASE Monika Fletcher DNP,JAVA XML DEVELOPER,SENIOR STAFF CONSULTANT LEVOFLOXACIN 500 MG TABS 03/22 levofloxacin 71403363614 Monika Fletcher DNP,JAVA XML DEVELOPER,SENIOR STAFF CONSULTANT MONTELUKAST SODIUM 10 MG TABS montelukast 34176643849 Monika Fletcher DNP,JAVA XML DEVELOPER,SENIOR STAFF CONSULTANT OXYBUTYNIN CHLORIDE ER 10 MG [id number] 03/22 oxybutynin chloride 69457349124 Monika Fletcher DNP,JAVA XML DEVELOPER,SENIOR STAFF CONSULTANT MECLIZINE HCL 25 MG TABS as needed 01/15 meclizine 98077334534 Monika Fletcher DNP,JAVA XML DEVELOPER,SENIOR STAFF CONSULTANT COMBIVENT RESPIMAT 20-100 MCG/ACT AERS as needed 01/15 ipratropium-albut joseline 11765135943 Monika Fletcher DNP,JAVA XML DEVELOPER,SENIOR STAFF CONSULTANT LEVOTHYROXINE SODIUM 150 MCG TABS levothyroxine 96555930805 Monika Fletcher DNP,JAVA XML DEVELOPER,SENIOR STAFF CONSULTANT EPIPEN 2-NICKOLAS 0.3 MG/0.3ML SOAJ epinephrine 76448217179 Monika Fletcher DNP,JAVA XML DEVELOPER,SENIOR STAFF CONSULTANT BACTROBAN 2 % EXTERNAL OINTMENT as needed 01/15 BACTROBAN 2 % EXTERNAL OINTMENT Monika Fletcher DNP,JAVA XML DEVELOPER,SENIOR STAFF CONSULTANT MELOXICAM 15 MG TABS 01/15 meloxicam 30685019167 Monika Fletcher DNP,JAVA XML DEVELOPER,SENIOR STAFF CONSULTANT AMLODIPINE BESYLATE 2.5 MG TABS 03/22 amlodipine 76160767207 Monika Fletcher DNP,JAVA XML DEVELOPER,SENIOR STAFF CONSULTANT D 5000 125 MCG (5000 UT) CAPS once a day cholecalciferol (vitamin d3) 76782162041 Monika Fletcher DNP,JAVA XML DEVELOPER,SENIOR STAFF CONSULTANT FLUZONE HIGH-DOSE 0.5 ML INTRAMUSCULAR SUSPENSION PREFILLED SYRINGE 03/22 FLUZONE HIGH-DOSE 0.5 ML INTRAMUSCULAR SUSPENSION PREFILLED SYRINGE Monika Fletcher DNP,JAVA XML DEVELOPER,SENIOR STAFF CONSULTANT SERTRALINE HCL 100 MG TABS sertraline 49770982093 Monika Fletcher DNP,JAVA XML DEVELOPER,SENIOR STAFF CONSULTANT DULERA AERO 08/23 MOMETASONE FURO-FORMOTEROL FUM AERO 14631242201 Rodolfo Conrad MD AMMONIUM LACTATE 12 % CREA as needed 08/23 AMMONIUM LACTATE 95336418901 Rodolfo Conrad MD AMMONIUM LACTATE 12 % CREA as needed 10/15 AMMONIUM LACTATE 23002505317 Monika Fletcher DNP,JAVA XML DEVELOPER,SENIOR STAFF CONSULTANT BACTROBAN 2 % EXTERNAL OINTMENT as needed 03/22 MUPIROCIN 29784085218 Monika Fletcher DNP,JAVA XML DEVELOPER,SENIOR STAFF CONSULTANT MECLIZINE HCL 25 MG TABS as needed 03/22 MECLIZINE HCL 55498858425 Monika Fletcher DNP,JAVA XML DEVELOPER,SENIOR STAFF CONSULTANT DULERA AERO 08/23 MOMETASONE FURO-FORMOTEROL FUM AERO 31239794023 Monika Fletcher DNP,JAVA XML DEVELOPER,SENIOR STAFF CONSULTANT VITAMIN D3 125 MCG (5000 UT) CAPS daily 03/22 CHOLECALCIFEROL 92530995260 Monika Fletcher DNP,JAVA XML DEVELOPER,SENIOR STAFF CONSULTANT COMBIVENT RESPIMAT AERS as needed 03/22 IPRATROPIUM-ALBUT JOSELINE AERS 48579840416 Monika Fletcher DNP,JAVA XML DEVELOPER,SENIOR STAFF CONSULTANT ADULT ASPIRIN EC LOW STRENGTH 81 MG ORAL TABLET DELAYED RELEASE One pill daily 03/22 ASPIRIN 36846430311 Monika Fletcher DNP,JAVA XML DEVELOPER,SENIOR STAFF CONSULTANT EPIPEN 2-NICKOLAS 0.3 MG/0.3ML SOAJ 10/15 EPINEPHRINE 27760377888 Monika Fletcher DNP,JAVA XML DEVELOPER,SENIOR STAFF CONSULTANT OXYBUTYNIN CHLORIDE ER 10 MG [id number] 08/17 OXYBUTYNIN CHLORIDE 44388783533 Monika Fletcher DNP,JAVA XML DEVELOPER,SENIOR STAFF CONSULTANT SERTRALINE HCL 100 MG TABS 03/22 SERTRALINE HCL 71558674152 Monika Fletcher DNP,JAVA XML DEVELOPER,SENIOR STAFF CONSULTANT MONTELUKAST SODIUM 10 MG TABS 03/22 MONTELUKAST SODIUM 74727402866 Monika Fletcher DNP,JAVA XML DEVELOPER,SENIOR STAFF CONSULTANT LEVOTHYROXINE SODIUM 150 MCG TABS 10/15 LEVOTHYROXINE SODIUM 71950969318 Monika Fletcher DNP,JAVA XML DEVELOPER,SENIOR STAFF CONSULTANT AMLODIPINE BESYLATE 2.5 MG TABS 10/15 AMLODIPINE BESYLATE 19656858869 Monika Fletcher DNP,JAVA XML DEVELOPER,SENIOR STAFF CONSULTANT FLUZONE HIGH-DOSE 0.5 ML DESTINY INFLUENZA VAC SPLIT HIGH-DOSE 57581971085 Monika Fletcher DNP,JAVA XML DEVELOPER,SENIOR STAFF CONSULTANT MELOXICAM 15 MG TABS 03/22 MELOXICAM 38985913659 Monika Fletcher DNP,JAVA XML DEVELOPER,SENIOR STAFF CONSULTANT LEVOFLOXACIN 500 MG TABS 03/22 LEVOFLOXACIN 37371204138 Monika Fletcher DNP,JAVA XML DEVELOPER,SENIOR STAFF CONSULTANT ZANAFLEX 4MG 1 po qhs and bid prn muscle stiffness and pain 07/11 ZANAFLEX 4MG Monika Fletcher DNP,JAVA XML DEVELOPER,SENIOR STAFF CONSULTANT LYRICA 75 MG CAPS 1 po bid 02/26 PREGABALIN 99689440341 Kendy Soto MS PA-C LYRICA 50 MG CAPS take 1 tab daily in am 02/26 PREGABALIN 52675105495 Kenyd Soto MS PA-C LYRICA 50 MG CAPS take 1 tab daily in am 10/15 PREGABALIN 35318382625 Kendy Soto MS PA-C LYRICA 75 MG CAPS 1 po bid 10/15 PREGABALIN 94574353359 Brent AliciaFelipa Tarrel DO ZANAFLEX 4MG 1 [...] hands and feet Critical Active Monika Fletcher DNP,JAVA XML DEVELOPER,SENIOR STAFF CONSULTANT GABAPENTIN myalgia Critical Active Monika Fletcher DNP,JAVA XML DEVELOPER,SENIOR STAFF CONSULTANT SHELLFISH anaphylactic reaction Critical Active Monika Fletcher DNP,JAVA XML DEVELOPER,SENIOR STAFF CONSULTANT CHOLESTOFF PLUS myalgia pain Critical Active Monika Fletcher DNP,JAVA XML DEVELOPER,SENIOR STAFF CONSULTANT FENOFIBRATE myalgia pain Critical Active Monika Cristobaligel DNP,JAVA XML DEVELOPER,SENIOR STAFF CONSULTANT DICYCLOMINE HCL confusion Critical Active Monika Fletcher DNP,JAVA XML DEVELOPER,SENIOR STAFF CONSULTANT ADHESIVE BANDAGES blisters Critical Active Valdez Fletcher DNP,JAVA XML DEVELOPER,SENIOR STAFF CONSULTANT ATORVASTATIN CALCIUM severe myalgia and pain Critical Active Monika Cristobaligel DNP,JAVA XML DEVELOPER,SENIOR STAFF CONSULTANT FLUTICASONE PROPIONATE rash Critical No Longer Active Monika Fletcher DNP,JAVA XML DEVELOPER,SENIOR STAFF CONSULTANT MEIJER ANTIHISTAMINE ALLERGY paradoxical effect Critical Active Monika Cristobaligel DNP,JAVA XML DEVELOPER,SENIOR STAFF CONSULTANT BUPROPION HCL anxiety and confusion Critical Act huma Monika Fletcher DNP,JAVA XML DEVELOPER,SENIOR STAFF CONSULTANT THEOPHYLLINE neurological issues Critical Active Monika Fletcher DNP,JAVA XML DEVELOPER,SENIOR STAFF CONSULTANT CARBAMAZEPINE rash-Dexter Babatunde' s syndrome Critical Active Monika Fletcher DNP,JAVA XML DEVELOPER,SENIOR STAFF CONSULTANT SULFAMETHOXAZOLE-TRI METHOPRIM allergic reaction of confusion and vomiting Critical Active Monika Fletcher DNP,JAVA XML DEVELOPER,SENIOR STAFF CONSULTANT METHYLPHENIDATE HCL heart issues Critical Active Monika Cristobaligel DNP,JAVA XML DEVELOPER,SENIOR STAFF CONSULTANT NABUMETONE allergic rash Critical Active Monika Cristobaligel DNP,JAVA XML DEVELOPER,SENIOR STAFF CONSULTANT METOCLOPRAMIDE HCL allergic rash Critical Active Monika Cristobaligel DNP,JAVA XML DEVELOPER,SENIOR STAFF CONSULTANT FLUOXETINE HCL hypertension Critical Active A richardson Fletcher DNP,JAVA XML DEVELOPER,SENIOR STAFF CONSULTANT PREDNISONE (NICKOLAS) swelling and lung issues Critical Active Monika Fletcher DNP,JAVA XML DEVELOPER,SENIOR STAFF CONSULTANT PENICILLIN G POTASSIUM allergic rash Critical Active Monika Fletcher DNP,JAVA XML DEVELOPER,SENIOR STAFF CONSULTANT IBUPROFEN esophagitis Critical Active Monika Fletcher DNP,JAVA XML DEVELOPER,SENIOR STAFF CONSULTANT METHACHOLINE/LIVER blisters on skin Critical Act huma Monika Fletcher DNP,JAVA XML DEVELOPER,SENIOR STAFF CONSULTANT CODEINE SULFATE restricted breathing Critical Ac tive Monika Fletcher DNP,JAVA XML DEVELOPER,SENIOR STAFF CONSULTANT LITHIUM CARBONATE muscle weakness and semiconsciousness Critical Active Monika Fletcher DNP,JAVA XML DEVELOPER,SENIOR STAFF CONSULTANT LORAZEPAM addiction Critical Active Monika Fletcher DNP,JAVA XML DEVELOPER,SENIOR STAFF CONSULTANT Results Date Name Value Unit Range Flag [...] 12:00 PM Michael Weems MD , [address], [address], [place], [address], Pending order Follow up Pending order Follow [...] with Neurologist or JERAD ORDERS Patient Instructions SCT-[id number] Other Referral SCT-[id number] Other Referral ORDERS Other Lab ORDERS Follow up ORDERS Other Order ORDERS Patient Instructions ORDERS Patient Instructions ORDERS Obtain outside records 12/09 CPT-76281 Nerve Conduction 13 or more studies 11/24 CPT-99799 EMG with NCS (5+ muscles) - 3 limbs 11/24 [id number] MRI-Thoracic W/O CPT-38273 MRI Thoracic W/O [facility]-[id number] Other Referral ORDERS Physical Therapy ORDERS EMG [...] Therapy ORDERS Physical Therapy ORDERS Other Order [id number] MRI-Lumbar W/O ORDERS Follow up ORDERS Other Order ORDERS EMG bilateral upper ext 2020 ORDERS EMG bilateral low ext 03/22 CPT-57027 Nerve Conduction 9-10 studies CPT-23929 EMG with NCS (5+ muscles) - 2 limbs 03/31 ORDERS Follow up ORDERS Other Order ORDERS Follow up [id number] Documentation of current medicatio ns ORDERS Follow up SCT-[id number] Documentation of current medicatio ns LOINC 07353-6 Fall risk assessment 09/01 ORDERS Sleep Consult LOINC 29095-5 Fall risk assessment 02/24 SCT-[id number] Documentation of current medicatio ns ORDERS Follow up SCT-807400312 Fall risk assessment (procedure) SCT-[id number] Documentation of current medicatio ns CPT-85948 EEG EXTENDED 61-119mins (END) ORDERS EEG Extended SCT-[id number] Fall risk assessment (procedure) SCT-109644310 Fall risk assessment (procedure) SCT-[id number] Documentation of current medicatio ns SCT-221152818 Fall risk assessment (procedure) ORDERS Patient Instructions [id number] MRI-Lumbar W/O CPT-47796 MRI Lumbar W/O ORDERS Patient Instructions [facility]-[id number] Documentation of current medicatio ns [facility]-[id number] Other Referral CPT-70369 Nerve Conduction 5-6 studies CPT-19406 EMG with NCS (5+ muscles) - 2 limbs 12/26 CPT-59542 Sensory NCS x 6 CPT-93985 Motor NCS and Fwave x 4 2008 CPT-18995 H-reflex x 1 CPT-32077 EMG 2 limb Vital Signs Date Name [...]
--- OUTSIDE RECORDS SUMMARY | 2024-09-28 17:27 | XMS_ITS | Continuity of Care Document ---
Author Organization [facility] Address [address] [place] [address] Care Team Providers Care Blankbook Stitching Machine Operator Name Role Phone [facility] Unavailable Unav ailable Procedures Procedure Date NEEDLE LOCALIZATION BY XRAY DRAIN/INJECT, JOINT/BURSA Without Ultras ound Advance Directives Directive Yes / No Effective Date File Name No Information Encounters Encounter Description Practice Location Reason(s) For Visit Diagnoses Date Provider Providers Copied on Encounter [facility], [address] [place], [place], [id number], [place] [facility] Onset No Information [facility]. [address] [place], [place], [id number], . tel:[phone] Referring Provider: Beltran Pittman, [address] [place], [address]. tel:[phone] Family History Family Member Type Diagnosis Age At Onset No Information Payers Payer name Insurance type Covered green party ID Authorryley mikejoni(s) Medicare MB [id number] [facility] [id number] Social History Type Description Quantity Date [...]
--- OUTSIDE RECORDS SUMMARY | 2024-09-28 17:27 | XMS_ITS | Clinical Summary ---
Author Organization [facility] Address [address] [place] [address] Care Team Providers Care Mixing Technician Name Role Phone Megan Woods MD Unavailable [phone] Ning Dunn DO Primary Care Provider [phone] Allergies Active Allergy Reactions Criticality Noted Date [...] Itchy rash, burning Latex, Natural Rubber Hives,Rash Mcleod Other - Describe In Comment Field High [...] muscle issues Shellfish Containing Products Dizziness 06/05/2014 Gijdeji-Wun-Zrx Reductase Inhibitors Myalgia 08/18/2011 Sulfa (Sulfonamide Antibiotics) [...] magic mouthwash 1:1:1 (diphen 12.5mg/5mL-lidocai ne 2%-maalox [phone]/5ml) (AMB MIX)Indications:Mo uth sore Swish and spit [...] joint replacement 07/06/2015 Overview (07/06/2015): Per Dr aMckay. Has card recommending 600mg clindamycin 1 hour [...] 2015: Referral placed for further evaluation at [place] as patient reports progressing symptoms. Neuropathic [...] muscular disorder Saw neuromuscular specialist at the [facility] per patient Has chronically elevated CK. 2014 saw Rheumatology and neurology with no known etiology for symptoms Referral [facility] for further evaluation regarding symptoms is pending [...] Department Care Team Description 09/25/2024 Medical Messaging [facility] [address] [place] [address] Ning Dunn DO Referral request 09/09/2024 Nurse Triage [facility] [address] [place] [address] Ning Dunn DO Blood Body Fluid Exposure; Sores In Mouth 09/09/2024 Telephone [facility] [address] [place] [address] Ning Dunn DO OTHER (Mrsa) 09/04/2024 2:20 PM MANAGER [employer] Telemedicine [facility] [address] [place] [address] Ning Dunn DO Shoulder Pain/problem (Bilateral shoulder and upper arms ongoing getting worse-referral [facility] for injections); Medication Management (2 tylenol 3 times daily, 3 ibuprofen 3 times daily-liver); Refill Request (Magic mouthwash for sore in mouth) 07/30/2024 3:00 PM MANAGER ENTERPRISE CONTENT MANAGEMENT Telemedicine [facility] [address] [place] [address] Hayden Blanc MD 07/30/2024 Travel 07/11/2024 Refill [facility] [address] [place] [address] Ning Dunn DO Refill Request (Dextroamphetamine- amphetamine) 07/10/2024 2:30 PM MANAGER ENTER[employer]ENT MANAGEMENT Office Visit [facility] [address] [place] [address] Aamir Rosas MD Sleep Follow-up 07/10/2024 Travel [...] AM CDT Legal Sex Female 6:09 AM MANAGER [employer] MANAGEMENT Gender Identity Female 03/12/2020 1:26 AM CDT [...] Comments Blood Pressure 169/78 07/10/2024 2:44 PM MANAGER ENTER[employer]ISE [employer]ENT MANAGEMENT Pulse 57 07/10/2024 2:36 PM MANAGER ENTER[employer]ISE CONTENT MANAGEMENT Temperature 36.9 C (98.5 F) 03/11/2021 1:17 PM CDT Respiratory Rate 12 04/08/2019 2:35 PM CDT Oxygen Saturation 96% 07/10/2024 2:36 PM MANAGER ENTERPRISE CONTENT MANAGEMENT Inhaled Oxygen Concentration - - Weight 104 kg (229 lb 3.2 oz) 07/10/2024 2:36 PM MANAGER ENTERPRISE CONTENT MANAGEMENT Height 162.6 cm (5' 4) 07/10/2024 2:36 PM MANAGER ENTERPRISE CONTENT MANAGEMENT Body Mass Index 39.34 07/10/2024 2:36 PM MANAGER ENTERPRISE CONTENT MANAGEMENT Plan of Treatment Upcoming Encounters Date Type Department Care Team (Late st Contact Info) Description 10/09/2024 10:50 AM CDT Office Visit [facility] [address] [place] [address] Ning Dunn DO [address] [place] [address] Health Maintenance Due Date Last Done Comments [...] age 50+ Completed 10/11/2014 (Completed outside of [facility]), 10/03/2014, 03/19/2013 Zoster (shingles) series for age [...] huma Non-React huma 03/20/2021 11:31 PM CDT [facility] Comment:Antibodies to HCV no t detected; does not exclude the possibility of exposure to HCV. Blood BLOOD SPECIMEN / Unknown Venipuncture / Unknown 03/19/2021 3:41 PM CDT 03/19/2021 3:41 PM CDT Ning Dunn DO SEND OUTS Final Resu lt [facility] [address] [place] [address], [place] * XR DXA BONE DENSITY 1 SITE AXIAL AND 1 SITE PERIPHERAL (04/29/2020 1:54 PM CDT) Anatomical Region Laterality Modality LUMBAR SPINE Other Narrative 05/10/2020 3:57 PM MANAGER ENTER[employer]ISE CONTENT MANAGEMENT Please see scanned document for results of this study. Ning Dunn DO DEXA Final Resu lt from Last 3 Months or Most Recently Relevant to Health Maintenance Insurance [id number] [facility] [place] [id number] MEDICARE PB ONLY MEDICARE PART A HB ONLY MEDICARE PART B HB ONLY [facility] FAMILY INSURANCE MEDICARE PB ONLY [id number] [place] [id number] COMMERCIAL [phone] [facility] [place] [id number] Advance Directives Documents on File Type Date Recorded Patient Atm Manager Expl anation Healthcare Directive 06/08/2015 2:32 PM [facility], 05/26/2015 Care Teams Mixing Technician Relationship Specialty Start Date End [place] [address] PCP - General Family Practice 04/16/15 Megan Woods MD [address] [place] [address] Rheumatology Rheumatology 11/07/14
--- OUTSIDE RECORDS SUMMARY | 2024-09-28 17:27 | XMS_ITS | Continuity of Care Document ---
Author Organization [facility] Address [address] [address] [place] [address] Phone Care Team Providers Care Network Systems Integrator Name Role Phone Mina EATON, Sanam Rodriguez Unavailable Allergies, Adverse Reactions, Alerts Substance Reaction Status Criticality TRIPROLIDINE HCL paradoxical reaction Active No Information TRIPELENNAMINE HCL paradoxical reaction Active N o Information menthol paradoxical reaction Active No Info rmation diphenhydramine blisters Active No Informati on DIPHENHYDRAMINE HCL blisters Active No Infor mation PSEUDOEPHEDRINE HCL blisters Active No Infor mation acetaminophen blisters Active No Information SERTRALINE HCL Diarrhea Active No Informatio n BUPROPION HCL shaking Active No Information carbamazepine life threatening Active No Informa tion Sulfa (Sulfonamide Antibiotics) Vomiting Active No Information METHYLPHENIDATE HCL Hyperactivity Active No Info rmation nabumetone asthma attacks Active No Informatio n METOCLOPRAMIDE HCL Rash Active No Inform ation FLUOXETINE HCL Hyperactivity Active No Informati on prednisone Swelling Active No Information PENICILLIN G POTASSIUM Hives Active No In formation naproxen blisters Active No Information ibuprofen Abdominal cramping Active No Inform ation methacholine Hives Active No Information codeine difficulty breathing Active No Info rmation lithium Weakness Active No Information lorazepam addiction Active No Information aspirin Wheezing Active No Information latex blisters Active No Information Medications Medication Instructions Dosage Effective Dates (start - stop) Status Comments Zyrtec 10 mg Tab as needed - Active RANITIDINE HCL 150MGCAPSULE One tablet by mouth twice daily as needed - Active ALBUTEROL 90MCGAEROSOL as needed - Active DESIPRAMINE HCL 25MGCAPSULE Take one capsule by mouth at bedtime - Active Tylenol unknown as needed - Active Advance Directives Directive Yes / No Effective Date File Name No Information Encounters Encounter Description Practice Location Reason(s) For Visit Diagnoses Date Provider Providers Copied on Encounter [facility], [address] [address], [place], [place], [id number], [place] tel:[phone] [facility] No Information Mina Marion. [address] [facility], [facility] [address], [place], [place], [id number], [place]. tel:[phone] Referring Provider: Renee Snyder MD, [address] [place] [address], [address]. tel:[phone] [facility], [address] [address], [place], [place], [id number], [place] tel:[phone] [facility] No Information Mina Maroin. [address] [facility] [address], [place], [place], [id number], [place]. tel:[phone] Referring Provider: Renee Snyder MD, [address] [place] [address], [address]. tel:[phone] Family History Family Member Type Diagnosis Age At Onset No Information Payers Payer name Insurance type Covered green party ID Authoriza tion(s) Medicare [facility] MB [id number] Preferred One Admin [facility] [id number] Social History Type Description Quantity Date Captured [...]
[2024-09-28 17:29] VITALS: BP 193/78; PULSE 65; RESP 18; TEMP 37.5; O2SAT 99; BMI 38.3
--- NOTE | 2024-09-28 17:51 | ED.GENADULT ---
HPI - General Adult General Chief complaint: Shortness of Breath/Dyspnea Stated complaint: Worsened symptoms Time Seen by Provider: 09/28/24 17:28 Source: patient Mode of arrival: ambulatory Limitations: no limitations History of Present Illness HPI narrative: 74-year-old female coming in today with continued cough. She states that she coughs all night and has coughed throughout most of the day. No fevers today, no chills. Cough continues to be productive of mucus and phlegm. She states that she feels weaker today. She has been able to do all of her activities of daily living. Her appetite has been normal and she has been eating and drinking normally today. She denies any diarrhea or rashes. She is not having increased shortness of breath. She denies chest pain. She does have chronic body aches secondary to muscular dystrophy, according to the patient, which are not changed. She does want to make sure that she did not have a pneumonia that developed overnight. Patient was seen in the ER yesterday. A triple swallow was done last evening which was negative and a chest x-ray was done less than 24 hours ago which was also normal. Related Data Home Medications ?Medication ?Instructions ?Recorded ?Confirmed dextroamphetamine-amphetamine ER 10 mg PO DAILY 06/01/22 09/28/24 10 mg 24hr capsule,extend release diclofenac sodium 1 % topical gel 2 g topical QID 06/01/22 09/28/24 levothyroxine 150 mcg tablet 150 mcg PO DAILY 06/01/22 09/28/24 montelukast 10 mg tablet 10 mg PO DAILY 06/01/22 09/28/24 sertraline 100 mg tablet 100 mg PO Q24H 06/01/22 09/28/24 tizanidine 2 mg tablet 2 mg PO PRN 06/01/22 09/09/24 acetaminophen 500 mg tablet 500 mg PO Q6H PRN 02/13/23 09/28/24 (Tylenol Extra Strength) ibuprofen 200 mg capsule 600 mg PO Q6H PRN 09/09/24 09/28/24 Previous Rx's ?Medication ?Instructions ?Recorded albuterol sulfate 90 mcg/actuation 2 puff inhalation Q4-6H PRN 09/27/24 aerosol inhaler shortness of breath or wheezing #8.5 grams prednisone 20 mg tablet 20 mg PO DAILY #4 tabs 09/27/24 benzonatate 100 mg capsule 100 mg PO BID PRN cough #14 caps 09/28/24 Allergies Allergy/AdvReac Type Severity Reaction Status Date / Time codeine Allergy Severe SOB Verified 09/28/24 17:38 adhesive Allergy Intermediate contact Verified 09/28/24 17:38 dermatitis lithium Allergy Intermediate falling Verified 09/28/24 17:38 bupropion Allergy Mild anxiety Verified 09/28/24 17:38 fluoxetine Allergy Mild Hypertensio Verified 09/28/24 17:38 n fluticasone Allergy Mild Rash Verified 09/28/24 17:38 gabapentin Allergy Mild myaglia Verified 09/28/24 17:38 ibuprofen (From Motrin) Allergy Mild Nausea Verified 09/28/24 17:38 Latex, Natural Rubber Allergy Mild hives Verified 09/28/24 17:38 lorazepam (From Ativan) Allergy Mild medical Verified 09/28/24 17:38 addication methacholine Allergy Mild Hives Verified 09/28/24 17:38 nitrile Allergy Mild Rash Verified 09/28/24 17:38 Penicillins Allergy Mild hives Verified 09/28/24 17:38 shellfish derived Allergy Mild Dizziness Verified 09/28/24 17:38 [id number]-[id number] Reductase Allergy Mild myalgia Verified 09/28/24 17:38 Inhibitor Sulfa (Sulfonamide Allergy Mild confusion Verified 09/28/24 17:38 Antibiotics) theophylline Allergy Mild Confusion Verified 09/28/24 17:38 aspirin Allergy Unknown asthma Verified 09/28/24 17:38 attack, breathing problems carbamazepine Allergy Unknown Verified 09/28/24 17:38 dicyclomine Allergy Unknown Confusion Verified 09/28/24 17:38 fenofibrate Allergy Unknown myalgia Verified 09/28/24 17:38 methylphenidate Allergy Unknown rapid Verified 09/28/24 17:38 pulse, confusion, smooth muscle issues metoclopramide Allergy Unknown Rash Verified 09/28/24 17:38 nabumetone Allergy Unknown Verified 09/28/24 17:38 nickel Allergy Unknown Verified 09/28/24 17:38 prednisone Allergy Unknown swelling Verified 09/28/24 17:38 hands pregabalin Allergy Unknown exfoliating Verified 09/28/24 17:38 dermatitis amlodipine besylate Allergy Mild rash Uncoded 09/09/24 18:56 plant stanol daron Allergy Mild myalgia Uncoded 09/09/24 18:56 Review of Systems Status of ROS: Reports: 10 or more systems reviewed and unremarkable except as noted in History and below [facility] Medical History Fracture of transverse process of vertebra Vitamin D deficiency (09/28/09) ?E55.9 - Vitamin D deficiency, unspecified (ICD-10) Closed head injury (1988) ?S09.90XA - Unspecified injury of head, initial encounter (ICD-10) History of methicillin resistant Staphylococcus aureus infection ?Z86.14 - Personal history of Methicillin resistant Staphylococcus aureus infection (ICD-10) Surgical History History of phacoemulsification of cataract of right eye with intraocular lens implantation (06/07/17) ?Z98.41 - Cataract extraction status, right eye (ICD-10) ?Z96.1 - Presence of intraocular lens (ICD-10) History of phacoemulsification of cataract of left eye with intraocular lens implantation (06/21/17) ?Z98.42 - Cataract extraction status, left eye (ICD-10) ?Z96.1 - Presence of intraocular lens (ICD-10) Retinal tear (2004) ?H33.319 - Horseshoe tear of retina without detachment, unspecified eye (ICD-10) H/O tubal ligation ?Z98.51 - Tubal ligation status (ICD-10) H/O breast biopsy ?Z98.890 - Other specified postprocedural states (ICD-10) 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 Alert and oriented. Answers questions appropriately. Mood and affect are appropriate. Thoughts are goal oriented and rational. No tangential or magical thinking noted. Patient speaks in full sentences without needing to catch her breath. We have quite a long conversation and patient does most of the talking. HEENT: Normocephalic atraumatic. Pupils are equally round reactive to light. Extraocular muscles are intact. Conjunctivae are moist without any icterus noted. Moist mucous membranes. Posterior pharynx is normal. Neck is soft. Cardiovascular: Heart is regular rate and rhythm S1 and S2 are present without any murmurs. Lungs: Clear to auscultation bilaterally no wheezes rhonchi or rales are appreciated. Patient takes deep breaths without any discomfort. Skin: Well perfused without any obvious rashes. Const: Vital Signs, click to edit/add: Vital Signs - 24 hr 09/28/24 17:29 Temperature 99.5 F Pulse Rate [Pulse Oximeter] 65 Respiratory Rate 18 Blood Pressure [Ri t Upper Arm] 193/78 H Pulse Oximetry 99 Oxygen Delivery Me thod Room Air Course Course ED Course: I discussed with the patient that her lungs do sound clear today. And that she is afebrile in the ER today. We discussed her oxygen saturations look very good. I did offer her to repeat her chest x-ray but she stated this was not necessary. We discussed [id number] cough suppressants. Patient does not wish to have any prescription cough syrups at this time but she is amenable to Tessalon Perles. Vital Signs Vital signs: Initial Vital Signs Temperature 99.5 F 09/28/24 17:29 Temperature Source Temporal Artery Scan 09/28/24 17: Pulse Rate 65 09/28/24 17: Respiratory Rate 18 09/28/24 17: Blood Pressure 193/78 H 09/28/24 17: Blood Pressure Mean 116 H 09/28/24 17:29 Blood Pressure Position Sitting 09/28/24 17:29 Pulse Oximetry 99 09/28/24 17:29 Oxygen Delivery Method Room Air 09/28/24 17:29 Vital Signs Temperature 99.5 F 09/28/24 17: Pulse Rate 65 09/28/24 17:29 Respiratory Rate 18 09/28/24 17:29 Blood Pressure 193/78 H 09/28/24 17: Pulse Oximetry 99 09/28/24 17:29 Oxygen Delivery Method Room Air 09/28/24 17: Temperature 99.5 F 09/28/24 17: Pulse Rate 65 09/28/24 17: Respiratory Rate 18 09/28/24 17:29 Blood Pressure 193/78 H 09/28/24 17:29 Pulse Oximetry 99 09/28/24 17:29 Oxygen Delivery Method Room Air 09/28/24 17:29 Medical Decision Making MDM Narrative Medical decision making narrative: 74-year-old female with a URI and cough. We discussed continued symptomatic treatment, Tessalon Perles and reasons for follow-up. Discharge Plan Discharge Clinical Impression: Viral upper respiratory infection Patient Disposition: Home, Self-Care Condition: Stable Additional Instructions: Expect this cough to last a couple of weeks. Take Tessalon Perles as needed/as directed. Okay to try [id number]-[id number] cough syrups and take as directed. Return to the emergency department if you experience worsening shortness of breath, chest pain, vomiting and the inability to keep down food or fluids. Prescriptions: New benzonatate 100 mg capsule 100 mg PO BID PRN (Reason: cough) Qty: 14 0RF No Action acetaminophen [Tylenol Extra Strength] 500 mg tablet 500 mg PO Q6H PRN ibuprofen 200 mg capsule 600 mg PO Q6H PRN prednisone 20 mg tablet 20 mg PO DAILY Qty: 4 0RF albuterol sulfate 90 mcg/actuation HFA aerosol inhaler 2 puff inhalation Q4-6H PRN (Reason: shortness of breath or wheezing) Qty: 8.5 0RF Rx Instructions: dispense with spacer please tizanidine 2 mg tablet 2 mg PO PRN Patient Comments: TAKE ONE TABLET BY MOUTH EVERY EIGHT HOURS NEEDED FOR MUSCLE SPASM sertraline 100 mg tablet 100 mg PO Q24H Patient Comments: TAKE TWO TABLETS BY MOUTH DAILY levothyroxine 150 mcg tablet 150 mcg PO DAILY Patient Comments: Take 1 Tablet (150 mcg) by mouth before breakfast. dextroamphetamine-amphetamine 10 mg capsule,extended release 24hr 10 mg PO DAILY Patient Comments: TAKE ONE CAPSULE BY MOUTH ONE TIME DAILY montelukast 10 mg tablet 10 mg PO DAILY Patient Comments: Take 1 Tablet (10 mg) by mouth at bedtime diclofenac sodium 1 % gel 2 g TOPICAL QID Patient Comments: Apply 2 g topically to affected area(s) 4 times daily Follow Up/Referrals: Ning Dunn DO [Primary Care Provider] - Stand Alone Forms: MyHealth Info Instructions
--- OUTSIDE RECORDS SUMMARY | 2024-09-28 18:05 | XMS_ITS | Continuity of Care Document ---
Author Organization [facility] Address [address] [place] [address] Care Team Providers Care Artillery Specialist Name Role Phone [facility] Unavailable Unav ailable Procedures Procedure Date NEEDLE LOCALIZATION BY XRAY DRAIN/INJECT, JOINT/BURSA Without Ultras ound Advance Directives Directive Yes / No Effective Date File Name No Information Encounters Encounter Description Practice Location Reason(s) For Visit Diagnoses Date Provider Providers Copied on Encounter [facility], [address] [place], [place], [id number], [place] [facility] No Information [facility]. [address] [place], [place], [id number], . tel:[phone] Referring Provider: Beltran Pittman, [address] [place], [address]. tel:[phone] Family History Family Member Type Diagnosis Age At Onset No Information Payers Payer name Insurance type Covered alliance party ID Authorryley mikejoni(s) Medicare MB [id number] [facility] [id number] Social History Type Description Quantity Date [...]
--- OUTSIDE RECORDS SUMMARY | 2024-09-28 18:05 | XMS_ITS | Clinical Summary ---
Author Organization [facility] Address [address] [place] [address] Care Team Providers Care Valve Pipe Irrigator Name Role Phone Megan Woods MD Unavailable [phone] Ning Dunn DO Primary Care Provider [phone] Allergies Active Allergy Reactions Criticality Noted Date [...] Itchy rash, burning Latex, Natural Rubber Hives,Rash Kenvir Other - Describe In Comment Field High [...] muscle issues Shellfish Containing Products Dizziness 06/05/2014 Iyffxtl-Zqt-Ynt Reductase Inhibitors Myalgia 08/18/2011 Sulfa (Sulfonamide Antibiotics) [...] magic mouthwash 1:1:1 (diphen 12.5mg/5mL-lidocai ne 2%-maalox [id number]/5ml) (AMB MIX)Indications:Mo uth sore Swish and spit [...] 2015: Referral placed for further evaluation at [facility] as patient reports progressing symptoms. Neuropathic [...] muscular disorder Saw neuromuscular specialist at the [facility] per patient Has chronically elevated CK. 2014 saw Rheumatology and neurology with no known etiology for symptoms Referral [facility] for further evaluation regarding symptoms is pending [...] 09/25/2024 Medical Messaging [facility] [address] [facility] [place] [address] Ning Dunn DO Referral request 09/09/2024 Nurse Triage [facility] [address] [place] [address] Ning Dunn DO Blood Body Fluid Exposure; Sores In Mouth 09/09/2024 Telephone [facility] [address] [place] [address] Ning Dunn DO OTHER (Mrsa) 09/04/2024 2:20 PM TALENT ACQUISITION ASSOCIATE Telemedicine [facility] [address] [facility] [address] Ning Dunn DO Shoulder Pain/problem (Bilateral shoulder and upper arms ongoing getting worse-referral [facility] for injections); Medication Management (2 tylenol 3 times daily, 3 ibuprofen 3 times daily-liver); Refill Request (Magic mouthwash for sore in mouth) 07/30/2024 3:00 PM TALENT ACQUISITION ASSOCIATE Telemedicine [facility] [address] [place] [address] Hayden Blanc MD 07/30/2024 Travel 07/11/2024 Refill [facility] [address] [place] [address] Ning Dunn DO Refill Request (Dextroamphetamine- amphetamine) 07/10/2024 2:30 PM TALENT ACQUISITION ASSOCIATE Office Visit [facility] [address] [place] [address] Aamir Rosas MD Sleep Follow-up 07/10/2024 Travel [...] AM CDT Legal Sex Female 6:09 AM TALENT ACQUISITION ASSOCIATE Gender Identity Female 03/12/2020 1:26 AM CDT [...] Comments Blood Pressure 169/78 07/10/2024 2:44 PM TALENT ACQUISITION ASSOCIATE Pulse 57 07/10/2024 2:36 PM TALENT ACQUISITION ASSOCIATE Temperature 36.9 C (98.5 F) 03/11/2021 1:17 PM CDT Respiratory Rate 12 04/08/2019 2:35 PM CDT Oxygen Saturation 96% 07/10/2024 2:36 PM TALENT ACQUISITION ASSOCIATE Inhaled Oxygen Concentration - - Weight 104 kg (229 lb 3.2 oz) 07/10/2024 2:36 PM TALENT ACQUISITION ASSOCIATE Height 162.6 cm (5' 4) 07/10/2024 2:36 PM TALENT ACQUISITION ASSOCIATE Body Mass Index 39.34 07/10/2024 2:36 PM TALENT ACQUISITION ASSOCIATE Plan of Treatment Upcoming Encounters Date Type Department Care Team (Late st Contact Info) Description 10/09/2024 10:50 AM CDT Office Visit [facility] [address] [place] [address] Ning Dunn DO [address] [place] [address] Health Maintenance Due Date Last Done Comments [...] age 50+ Completed 10/11/2014 (Completed outside of [facility]), 10/03/2014, 03/19/2013 Zoster (shingles) series for age [...] huma Non-React huma 03/20/2021 11:31 PM CDT [facility] Comment:Antibodies to HCV no t detected; does not exclude the possibility of exposure to HCV. Blood BLOOD SPECIMEN / Unknown Venipuncture / Unknown 03/19/2021 3:41 PM CDT 03/19/2021 3:41 PM CDT Ning Dunn DO SEND OUTS Final [facility]u [facility] [address] [place] [address], [place] * XR DXA BONE DENSITY 1 SITE AXIAL AND 1 SITE PERIPHERAL (04/29/2020 1:54 PM CDT) Anatomical Region Laterality Modality LUMBAR SPINE Other Narrative 05/10/2020 3:57 PM TALENT ACQUISITION ASSOCIATE Please see scanned document for results of this study. 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
--- OUTSIDE RECORDS SUMMARY | 2024-09-28 18:05 | XMS_ITS | Clinical Summary ---
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 09/19 Karmen Darlene Cherucheril PA-C Muscular dystrophy Other lesions of median nerve, bilateral upper limbs 871738739 (SNOMED CT) 11/24 Active 11/24 Michael Weems MD Lesion of median nerve Bladder instability 287806457 (SNOMED CT) 10/31 Active 10/31 Afshin Hsu MD Irritability of urinary bladder Numbness, hand 165019881 (SNOMED CT) 08/24 Active 08/24 Karmen Darlene Cherucheril PA-C Numbness of limbs Upper arm pain, right 467811155 (SNOMED CT) 08/24 Active 08/24 Karmen Darlene Cherucheril PA-C Pain in right arm Upper arm pain, left 287485806 (SNOMED CT) 08/24 Active 08/24 Karmen Darlene Cherucheril PA-C Pain in left arm Shoulder pain, right 63384926116 921758 (SNOMED CT) 08/24 Active 08/24 Karmen Darlene Cherucheril PA-C Pain of right shoulder joint Shoulder pain, left 14600997401 938980 (SNOMED CT) 08/24 Active 08/24 Karmen Carrera PA-C Pain of left shoulder joint Lumbar radiculopat hy, left 255194356 (SNOMED CT) 07/21 Active 07/21 Afshin Hsu MD Lumbar radiculopathy Myopathy 362241866 (SNOMED CT) 03/22 Active 03/22 Karmen Carrera PA-C Disorder of muscle Sleep disturbance , nos 69832460 (SNOMED CT) 02/24 Active 02/24 Rodolfo Conrad MD Sleep apnea Syncope 987080382 (SNOMED CT) 08/16 Active 08/17 Rodolfo Conrad MD Syncope History of head injury 454575819 (SNOMED CT) 08/02 Active 08/02 Rodolfo Conrad MD History of head injury Strain of muscle, fascia and tendon at neck level, sequela S16.1xxS (ICD-10-CM) 12/11 Active 12/11 Monika Alicia Fletcher DNP,HEALTH CAREERS INSTRUCTOR,CN P Strain of muscle, fascia and tendon at neck level, sequela Lumbar disc degeneratio n 15828062 (SNOMED CT) 12/11 Active 12/11 Monika Alicia Fletcher DNP,HEALTH CAREERS INSTRUCTOR,CN P Degeneration of lumbar intervertebral disc Weakness of right leg 930174355 (SNOMED CT) 07/11 Active 07/11 Monika Alicia Fletcher DNP,HEALTH CAREERS INSTRUCTOR,CN P Monoparesis of lower limb Lumbar degenerativ e disc 722.52 (ICD-9-CM) 12/11 Inactive 12/11 Brent Mcgraw DO Degeneration of lumbar or lumbosacral intervertebral disc Low back pain 946428148 (SNOMED CT) 12/11 Active 12/11 Brent Brockmann DO Low back pain Leg pain 96830296 (SNOMED CT) 12/11 Active 12/11 Brent Mcgraw DO Pain in lower limb Dysequilibr ium 352373638 (SNOMED CT) 12/11 Active 12/11 Brent Mcgraw DO Dysequilibrium syndrome Cervical strain 906848754 (SNOMED CT) 12/11 Inactive 12/11 Brent Mcgraw DO Strain of neck muscle Low back pain 562518263 (SNOMED CT) 12/11 Active 12/11 Brent Mcgraw DO Low back pain ULNAR NEUROPATHY 215749765 (SNOMED CT) 08/17 Active 08/17 Harvey Camara MD Ulnar neuropathy UNSPECIFIED VITAMIN D DEFICIENCY 97083169 (SNOMED CT) 07/05 Active 07/05 Brent Mcgraw DO Vitamin D deficiency HYPOTHYROID ISM 91639581 (OMED CT) 07/05 Active 07/05 Brent Mcgraw DO Hypothyroidism MUSCULOSKEL ETAL SYMPTOMS, NOS R29.898 (ICD-10-CM) 08/04 Active 08/04 Brent Mcgraw DO Other symptoms and signs involving the musculoskeleta l system MUSCLE WEAKNESS 51550040 (SNOMED CT) 08/04 Active 08/04 Brent Mcgraw DO Muscle weakness Medications Medication Instructions Start Date Stop Date Generic Name [facility] Provider AMPHETAMINE-DEXT ROAMPHET ER 10 MG [id number] 02/13 dextroamphetamine -amphetamine [id number] Afshin Hsu MD AMPHETAMINE-DEXT ROAMPHET ER 10 MG [id number] take 1 pill every morning as needed dextroamphetamine -amphetamine 99213361174 Afshin Hsu MD MELOXICAM 15 MG TABS 01/15 meloxicam 63082843582 Karmen Carrera PA-C COMBIVENT RESPIMAT 20-100 MCG/ACT AERS as needed 01/15 ipratropium-albut joseline 21191146845 Karmen Carrera PA-C BACTROBAN 2 % EXTERNAL OINTMENT as needed 01/15 BACTROBAN 2 % EXTERNAL OINTMENT Karmen Darlene Cherucheril PA-C MECLIZINE HCL 25 MG TABS as needed 01/15 meclizine 66140373122 Karmen Guzmanyo MOREJON-C EZETIMIBE 10 MG TABS ezetimibe 52039022049 Karmen Carrera JEAN-PIERRE-C AMPHETAMINE-DEXT ROAMPHET ER 10 MG [id number] 11/15 dextroamphetamine -amphetamine 85224606495 Karmen Guzmanyo MOREJON-C ADULT ASPIRIN EC LOW STRENGTH 81 MG ORAL TABLET DELAYED RELEASE 1 once a day 03/22 ADULT ASPIRIN EC LOW STRENGTH 81 MG ORAL TABLET DELAYED RELEASE Monika Fletcher DNP,HEALTH CAREERS INSTRUCTOR,SHEARING SUPERVISOR LEVOFLOXACIN 500 MG TABS 03/22 levofloxacin 46602216461 Monika Fletcher DNP,HEALTH CAREERS INSTRUCTOR,SHEARING SUPERVISOR MONTELUKAST SODIUM 10 MG TABS montelukast 91558115324 Monika Fletcher DNP,HEALTH CAREERS INSTRUCTOR,SHEARING SUPERVISOR OXYBUTYNIN CHLORIDE ER 10 MG [id number] 03/22 oxybutynin chloride 59825842464 Monika Fletcher DNP,HEALTH CAREERS INSTRUCTOR,SHEARING SUPERVISOR MECLIZINE HCL 25 MG TABS as needed 01/15 meclizine 95517987026 Monika Fletcher DNP,HEALTH CAREERS INSTRUCTOR,SHEARING SUPERVISOR COMBIVENT RESPIMAT 20-100 MCG/ACT AERS as needed 01/15 ipratropium-albut joseline 92654254789 Monika Fletcher DNP,HEALTH CAREERS INSTRUCTOR,SHEARING SUPERVISOR LEVOTHYROXINE SODIUM 150 MCG TABS levothyroxine 29183674374 Monika Fletcher DNP,HEALTH CAREERS INSTRUCTOR,SHEARING SUPERVISOR EPIPEN 2-NICKOLAS 0.3 MG/0.3ML SOAJ epinephrine 59545044777 Monika Fletcher DNP,HEALTH CAREERS INSTRUCTOR,SHEARING SUPERVISOR BACTROBAN 2 % EXTERNAL OINTMENT as needed 01/15 BACTROBAN 2 % EXTERNAL OINTMENT Monika Fletcher DNP,HEALTH CAREERS INSTRUCTOR,SHEARING SUPERVISOR MELOXICAM 15 MG TABS 01/15 meloxicam 86354119500 Monika Fletcher DNP,HEALTH CAREERS INSTRUCTOR,SHEARING SUPERVISOR AMLODIPINE BESYLATE 2.5 MG TABS 03/22 amlodipine 25057034062 Monika Fletcher DNP,HEALTH CAREERS INSTRUCTOR,SHEARING SUPERVISOR D 5000 125 MCG (5000 UT) CAPS once a day cholecalciferol (vitamin d3) 88996608064 Monika Fletcher DNP,HEALTH CAREERS INSTRUCTOR,SHEARING SUPERVISOR FLUZONE HIGH-DOSE 0.5 ML INTRAMUSCULAR SUSPENSION PREFILLED SYRINGE 03/22 FLUZONE HIGH-DOSE 0.5 ML INTRAMUSCULAR SUSPENSION PREFILLED SYRINGE Monika Fletcher DNP,HEALTH CAREERS INSTRUCTOR,SHEARING SUPERVISOR SERTRALINE HCL 100 MG TABS sertraline 63832880252 Monika Fletcher DNP,HEALTH CAREERS INSTRUCTOR,SHEARING SUPERVISOR DULERA AERO 08/23 MOMETASONE FURO-FORMOTEROL FUM AERO 65387520061 Rodolfo Conrad MD AMMONIUM LACTATE 12 % CREA as needed 08/23 AMMONIUM LACTATE 87039590406 Rodolfo Conrad MD AMMONIUM LACTATE 12 % CREA as needed 10/15 AMMONIUM LACTATE 99529599765 Monika Fletcher DNP,HEALTH CAREERS INSTRUCTOR,SHEARING SUPERVISOR BACTROBAN 2 % EXTERNAL OINTMENT as needed 03/22 MUPIROCIN 18272590069 Monika Fletcher DNP,HEALTH CAREERS INSTRUCTOR,SHEARING SUPERVISOR MECLIZINE HCL 25 MG TABS as needed 03/22 MECLIZINE HCL 48431328934 Monika Fletcher DNP,HEALTH CAREERS INSTRUCTOR,SHEARING SUPERVISOR DULERA AERO 08/23 MOMETASONE FURO-FORMOTEROL FUM AERO 77105689988 Monika Fletcher DNP,HEALTH CAREERS INSTRUCTOR,SHEARING SUPERVISOR VITAMIN D3 125 MCG (5000 UT) CAPS daily 03/22 CHOLECALCIFEROL 43378935090 Monika Fletcher DNP,HEALTH CAREERS INSTRUCTOR,SHEARING SUPERVISOR COMBIVENT RESPIMAT AERS as needed 03/22 IPRATROPIUM-ALBUT JOSELINE AERS 18838805557 Monika Fletcher DNP,HEALTH CAREERS INSTRUCTOR,SHEARING SUPERVISOR ADULT ASPIRIN EC LOW STRENGTH 81 MG ORAL TABLET DELAYED RELEASE One pill daily 03/22 ASPIRIN 84271665559 Monika Fletcher DNP,HEALTH CAREERS INSTRUCTOR,SHEARING SUPERVISOR EPIPEN 2-NICKOLAS 0.3 MG/0.3ML SOAJ 10/15 EPINEPHRINE 59992767170 Monika Fletcher DNP,HEALTH CAREERS INSTRUCTOR,SHEARING SUPERVISOR OXYBUTYNIN CHLORIDE ER 10 MG [id number] 08/17 OXYBUTYNIN CHLORIDE 78588743943 Monika Fletcher DNP,HEALTH CAREERS INSTRUCTOR,SHEARING SUPERVISOR SERTRALINE HCL 100 MG TABS 03/22 SERTRALINE HCL 68683629676 Monika Fletcher DNP,HEALTH CAREERS INSTRUCTOR,SHEARING SUPERVISOR MONTELUKAST SODIUM 10 MG TABS 03/22 MONTELUKAST SODIUM 69525557873 Monika Fletcher DNP,HEALTH CAREERS INSTRUCTOR,SHEARING SUPERVISOR LEVOTHYROXINE SODIUM 150 MCG TABS 10/15 LEVOTHYROXINE SODIUM 55529117589 Monika Fletcher DNP,HEALTH CAREERS INSTRUCTOR,SHEARING SUPERVISOR AMLODIPINE BESYLATE 2.5 MG TABS 10/15 AMLODIPINE BESYLATE 71897490257 Monika Fletcher DNP,HEALTH CAREERS INSTRUCTOR,SHEARING SUPERVISOR FLUZONE HIGH-DOSE 0.5 ML DESTINY INFLUENZA VAC SPLIT HIGH-DOSE 70948629879 Monika Fletcher DNP,HEALTH CAREERS INSTRUCTOR,SHEARING SUPERVISOR MELOXICAM 15 MG TABS 03/22 MELOXICAM 88159521658 Monika Fletcher DNP,HEALTH CAREERS INSTRUCTOR,SHEARING SUPERVISOR LEVOFLOXACIN 500 MG TABS 03/22 LEVOFLOXACIN 20009615227 Monika Fletcher DNP,HEALTH CAREERS INSTRUCTOR,SHEARING SUPERVISOR ZANAFLEX 4MG 1 po qhs and bid prn muscle stiffness and pain 07/11 ZANAFLEX 4MG Monika Fletcher DNP,HEALTH CAREERS INSTRUCTOR,SHEARING SUPERVISOR LYRICA 75 MG CAPS 1 po bid 02/26 PREGABALIN 90328626947 Kendy Soto MS PA-C LYRICA 50 MG CAPS take 1 tab daily in am 02/26 PREGABALIN 01832301754 Kendy Soto MS PA-C LYRICA 50 MG CAPS take 1 tab daily in am 10/15 PREGABALIN 10710951509 Kendy Soto MS PA-C LYRICA 75 MG CAPS 1 po bid 10/15 PREGABALIN 07684185059 Brent AliciaFelipa Tarrel DO ZANAFLEX 4MG 1 [...] hands and feet Critical Active Monika Fletcher DNP,HEALTH CAREERS INSTRUCTOR,SHEARING SUPERVISOR GABAPENTIN myalgia Critical Active Monika Fletcher DNP,HEALTH CAREERS INSTRUCTOR,SHEARING SUPERVISOR SHELLFISH anaphylactic reaction Critical Active Monika Fletcher DNP,HEALTH CAREERS INSTRUCTOR,SHEARING SUPERVISOR CHOLESTOFF PLUS myalgia pain Critical Active Monika Fletcher DNP,HEALTH CAREERS INSTRUCTOR,SHEARING SUPERVISOR FENOFIBRATE myalgia pain Critical Active Monika Cristobaligel DNP,HEALTH CAREERS INSTRUCTOR,SHEARING SUPERVISOR DICYCLOMINE HCL confusion Critical Active Monika Fletcher DNP,HEALTH CAREERS INSTRUCTOR,SHEARING SUPERVISOR ADHESIVE BANDAGES blisters Critical Active Valdez Fletcher DNP,HEALTH CAREERS INSTRUCTOR,SHEARING SUPERVISOR ATORVASTATIN CALCIUM severe myalgia and pain Critical Active Monika Cristobaligel DNP,HEALTH CAREERS INSTRUCTOR,SHEARING SUPERVISOR FLUTICASONE PROPIONATE rash Critical No Longer Active Monika Fletcher DNP,HEALTH CAREERS INSTRUCTOR,SHEARING SUPERVISOR MEIJER ANTIHISTAMINE ALLERGY paradoxical effect Critical Active Monika Cristobaligel DNP,HEALTH CAREERS INSTRUCTOR,SHEARING SUPERVISOR BUPROPION HCL anxiety and confusion Critical Act huma Monika Fletcher DNP,HEALTH CAREERS INSTRUCTOR,SHEARING SUPERVISOR THEOPHYLLINE neurological issues Critical Active Monika Fletcher DNP,HEALTH CAREERS INSTRUCTOR,SHEARING SUPERVISOR CARBAMAZEPINE rash-Dexter Babatunde' s syndrome Critical Active Monika Fletcher DNP,HEALTH CAREERS INSTRUCTOR,SHEARING SUPERVISOR SULFAMETHOXAZOLE-TRI METHOPRIM allergic reaction of confusion and vomiting Critical Active Monika Fletcher DNP,HEALTH CAREERS INSTRUCTOR,SHEARING SUPERVISOR METHYLPHENIDATE HCL heart issues Critical Active Monika Cristobaligel DNP,HEALTH CAREERS INSTRUCTOR,SHEARING SUPERVISOR NABUMETONE allergic rash Critical Active Monika Cristobaligel DNP,HEALTH CAREERS INSTRUCTOR,SHEARING SUPERVISOR METOCLOPRAMIDE HCL allergic rash Critical Active Monika Cristobaligel DNP,HEALTH CAREERS INSTRUCTOR,SHEARING SUPERVISOR FLUOXETINE HCL hypertension Critical Active A richardson Flethcer DNP,HEALTH CAREERS INSTRUCTOR,SHEARING SUPERVISOR PREDNISONE (NICKOLAS) swelling and lung issues Critical Active Monika Fletcher DNP,HEALTH CAREERS INSTRUCTOR,SHEARING SUPERVISOR PENICILLIN G POTASSIUM allergic rash Critical Active Monika Fletcher DNP,HEALTH CAREERS INSTRUCTOR,SHEARING SUPERVISOR IBUPROFEN esophagitis Critical Active Monika Fletcher DNP,HEALTH CAREERS INSTRUCTOR,SHEARING SUPERVISOR METHACHOLINE/LIVER blisters on skin Critical Act huma Monika Fletcher DNP,HEALTH CAREERS INSTRUCTOR,SHEARING SUPERVISOR CODEINE SULFATE restricted breathing Critical Ac tive Monika Fletcher DNP,HEALTH CAREERS INSTRUCTOR,SHEARING SUPERVISOR LITHIUM CARBONATE muscle weakness and semiconsciousness Critical Active Monika Fletcher DNP,HEALTH CAREERS INSTRUCTOR,SHEARING SUPERVISOR LORAZEPAM addiction Critical Active Monika Fletcher DNP,HEALTH CAREERS INSTRUCTOR,SHEARING SUPERVISOR Results Date Name Value Unit Range Flag [...] 12:00 PM Michael Weems MD , [address] [facility], [address], [place], [address], Pending order Follow up Pending order Follow [...] with Neurologist or JERAD ORDERS Patient Instructions [id number] Other Referral SCT-[id number] Other Referral ORDERS Other Lab ORDERS Follow up ORDERS Other Order ORDERS Patient Instructions ORDERS Patient Instructions ORDERS Obtain outside records 12/09 CPT-53925 Nerve Conduction 13 or more studies 11/24 CPT-14781 EMG with NCS (5+ muscles) - 3 limbs 11/24 [id number] MRI-Thoracic W/O CPT-02410 MRI Thoracic W/O [facility]-[id number] Other Referral ORDERS Physical Therapy ORDERS EMG [...] Therapy ORDERS Physical Therapy ORDERS Other Order [id number] MRI-Lumbar W/O ORDERS Follow up ORDERS Other Order ORDERS EMG bilateral upper ext 2020 ORDERS EMG bilateral low ext 03/22 CPT-63417 Nerve Conduction 9-10 studies CPT-70850 EMG with NCS (5+ muscles) - 2 limbs 03/31 ORDERS Follow up ORDERS Other Order ORDERS Follow up [id number] Documentation of current medicatio ns ORDERS Follow up [id number] Documentation of current medicatio ns LOINC 19182-1 Fall risk assessment 09/01 ORDERS Sleep Consult LOINC 96233-4 Fall risk assessment 02/24 SCT-[id number] Documentation of current medicatio ns ORDERS Follow up SCT-[id number] Fall risk assessment (procedure) SCT-[id number] Documentation of current medicatio ns CPT-59945 EEG EXTENDED 61-119mins (END) ORDERS EEG Extended SCT-[id number] Fall risk assessment (procedure) SCT-[id number] Fall risk assessment (procedure) SCT-[id number] Documentation of current medicatio ns SCT-[id number] Fall risk assessment (procedure) ORDERS Patient Instructions [id number] MRI-Lumbar W/O CPT-98792 MRI Lumbar W/O ORDERS Patient Instructions [facility]-[id number] Documentation of current medicatio ns [facility]-[id number] Other Referral CPT-45634 Nerve Conduction 5-6 studies CPT-45185 EMG with NCS (5+ muscles) - 2 limbs 12/26 CPT-57306 Sensory NCS x 6 CPT-87840 Motor NCS and Fwave x 4 2008 CPT-93043 H-reflex x 1 CPT-65045 EMG 2 limb Vital Signs Date Name [...]
--- OUTSIDE RECORDS SUMMARY | 2024-09-28 18:05 | XMS_ITS | Continuity of Care Document ---
Author Organization [facility] Address [address] [address] [place] [address] Phone Care Team Providers Care Restaurant Floor Manager Name Role Phone Mina EATON, Sanam Rodriguez [...] Date Provider Providers Copied on Encounter [facility], [address] [address], [place], [place], [id number], [place] tel:[phone] [facility] No Information Mina Marion. [address] [facility] [facility] [address], [place], [place], [id number], [place]. tel:[phone] Referring Provider: Renee Snyder MD, [address] [place] [address], [address]. tel:[phone] [facility], [address] [address], [place], [place], [address], [place] tel:[phone] [facility] No Information Mina Marion. [address] [facility] [address], [place], [place], [id number], [place]. tel:[phone] Referring Provider: Renee Snyder MD, [address] [place] [address], [address]. tel:[phone] Family History Family Member Type Diagnosis Age At Onset No Information Payers Payer name Insurance type Covered republican ID Authoriza tion(s) Medicare [facility] MB [id number] Preferred One Admin [facility] [id number] Social History Type Description Quantity Date Captured [...]
--- OUTSIDE RECORDS SUMMARY | 2024-09-28 18:05 | XMS_ITS | Continuity of Care Document ---
Author Organization [facility] enter Address [address] [place] [address] [address] Phone Care Team Providers Care Certified Surgical Tech/First Assistant Name Role Phone [facility] Unavailable Unava ilable Procedures Procedure Date INJECT SACROILIAC JOINT Inj for sacroiliac jt anesth NEEDLE LOCALIZATION BY XRAY Advance Directives Directive Yes / No Effective Date File Name No Information Encounters Encounter Description Practice Location Reason(s) For Visit Diagnoses Date Provider Providers Copied on Encounter [facility], [address] [place] [address], [id number], tel:[phone] [facility] No Information 3 [facility]. [address] [place] [address], [id number], . tel:[phone] Referring Provider: Beltran Pittman, [address] [place], [address] . tel:[phone] Family History Family Member Type Diagnosis Age At Onset No Information Payers Payer name Insurance type Covered libertarian ID Authoriza tion(s) Medicare MB [id number] [facility] [id number] Social History Type Description Quantity Date [...]
--- OUTSIDE RECORDS SUMMARY | 2024-09-28 18:05 | XMS_ITS | Continuity of Care Document ---
Author Organization [facility] Address [address] [address] Phone Care Team Providers Care Housing Management Representative Name Role Phone Toya EATON, Beltran Unavailable [...] Describe In Comment Field Active No Information Qvtvfgg-RSV-UcG Reductase Inhibitors Myalgia Active No Information dicyclomine [...] Diagnoses Date Provider Providers Copied on Encounter [facility], [address] [place] [address], [id number] , [place] tel:[phone] [facility] Nat[place] Pain in left shoulderBursit is of right shoulder 4 Toya Gong. [address] [place] [address], [id number], [place]. tel:[phone] Referring Provider: Beltran Hansen, [address] [place], [address]. tel:[phone] OFFICE VISIT, EST TELEMEDICINE [facility], [address] [place] [address], [id number] , [place] tel:[phone] [facility] [place] Widespread pain (chief complaint) Chronic pain syndromePrimar y osteoarthritis , left shoulderBilate ral primary osteoarthritis of kneePain in left hipSacroiliiti s, not elsewhere classifiedRadi culopathy, lumbar regionBursitis of right shoulder 4 Bandar Narvaez. [address] [facility] [address], [place], [place], [id number], [place]. tel:[phone] [facility], [address] [place] [address], [id number] , [place] [phone] [facility] [place] Unilateral primary osteoarthritis , left knee October- 4 Toya Gong. [address] [place] [address], [id number], [place]. tel:[phone] Referring Provider: Beltran Hansen, [address] [place] [address], [id number]. tel:[phone] [facility], [address] [place] [address], [id number] , [place] [phone] [facility] [place] Pain in right shoulder Oct- 4 Toya Gong. [address] [place] [address], [id number], [place]. tel:[phone] Referring Provider: Beltran Hansen, [address] [place] [address], [id number]. tel:[phone] OFFICE/OUTPAT IENT VISIT, EST [facility], [address] [place] [address], [id number] , [place] tel:[phone] [facility] Widespread pain (chief complaint) Chronic pain syndromePain in left hipSacroiliiti s, not elsewhere classifiedRadi culopathy, lumbar regionPrimary osteoarthritis , left shoulderPrimar y osteoarthritis , right shoulderBilate ral primary osteoarthritis of knee Oct- 4 Bandarmemo Narvaez. [address] [facility] [address], [place], [place], [id number], [place]. tel:[phone] Referring Provider: Beltran Hansen, [address] [place] [address], [id number]. tel:[phone] OFFICE VISIT, EST TELEMEDICINE [facility], [address] [place] [address], [id number] , [place] tel:[phone] [facility] [place] Widespread pain (chief complaint) Chronic pain syndromePain in right shoulderPain in left shoulderPain in left hipPain in right kneePain in left kneeSacroiliit is, not elsewhere classifiedRadi culopathy, lumbar region Nov- 3 Concepcion Nayana. [address] [facility] [address], [place], [id number], [place]. tel:[phone] OFFICE/OUTPAT IENT VISIT, [facility], [address], [place], [id number] , [place] [phone] [facility] Widespread pain (chief complaint) Chronic pain syndromePain in right shoulderPain in left shoulderPain in right kneePain in left kneeSacroiliit is, not elsewhere classifiedRadi culopathy, lumbar regionPain in left hip Sep- 3 Concepcion Nayana. [address] [facility] [address], [place], [id number], [place]. tel:[phone] Referring [facility]: [facility] [address] [place], [address]. tel:[phone] [facility], [address], [place], [id number] , [place] tel:[phone] [facility] Sacroiliitis, not elsewhere classified Sep- 3 Toya Gong. [address], [place], [id number], [place]. tel:[phone] Referring Provider: Ning Dunn [facility] [address] [place], [address]. tel:[phone] OFFICE/OUTPAT IENT VISIT, [facility], [address], [place], [id number] , [place] tel:[phone] [facility] [place] Widespread pain (chief complaint) Chronic pain syndromeRadicu lopathy, lumbar regionPain in right shoulderPain in left shoulderSacroi liitis, not elsewhere classifiedPain in right kneePain in left knee Aug- 3 Concepcion Nayana. [address] [facility] [address] [facility] [address], [place], [id number], . tel:[phone] Referring Provider: Ciara Snow [facility] [address], [place], [address]. tel:[phone] Family History Family Member Type Diagnosis Age [...] Arthritis Payers Payer name Insurance type Covered green party ID ryley dee(s) Medicare MB [id number] [facility] [id number] Social History Type Description Quantity Date [...] L SAB injection on 12/18/23. Asks if [facility] completes CARR injections to shoulders. [...] a HEP as recent PT ordered through [place] aggravated her pain. No other concerns today. 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 She is relieved to finally have a dx to explain ongoing increased pain in her long muscles. States she is now completing PT, as ordered by [place], and continues a HEP with benefit. 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 Finds some relief from voltaren gel [...] having this removed by Dr. Carrasco at [facility].No other concerns today. Comments: Josseline is a 73 y/o female who presents via [facility] for a virtual follow up in the setting of chronic widespread pain, most prominent in the low back with radiation into the L leg, BL shoulders, and BL knees. Pain has been improving this month. 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 Ning Dunn DO through [facility]. Shares the pain began 1.5 years ago and was aggravated when she fell after walking her 2 dogs in the rain. History of BL hip replacement, torn L rotator cuff, torn meniscus in the L knee, and carpal tunnel syndrome. Pain is worse with movement and relieved with medications and stretching. Have tried PT through [facility] in 01/2023, acupressure, and L [...]
[2024-09-28 18:12] VITALS: BP 177/82
== END 2024-09-28 18:16 | disposition home or self-care (01) ==
PROVIDERS: Emergency Provider Family Medicine; PCP Family Medicine
DX: J06.9 Acute upper respiratory infection, unspecified (principal)
CPT/HCPCS: 99283

== ENCOUNTER 2024-10-08 09:32 | Emergency (ER) | payer MEDICARE, BC, SELFPAY ==
--- OUTSIDE RECORDS SUMMARY | 2024-10-08 09:35 | XMS_ITS | Clinical Summary ---
Author Organization [facility] Address [address] [place] [address] Care Team Providers Care Double Back Operator Name Role Phone Elsewhere, Pcp Primary Care Provider Unavailabl e Source Comments Patient records contain information from all sites at [facility]. For routine questions regarding patient records, call [phone] during business hours, M-F 8:00 AM - 5:00 PM Central Time. Record requests for emergency care only can be directed to [phone] at any time.[facility] Medications No known medications Active Problems [...] Maternal Grandfather Mikhail Maternal Grandmother Ovidia Mother Aljeandra Mother's Brother Gonzalo Niece Alive Symptoms Paternal Grandfather Bryce D Paternal Grandmother Consuelo Sister 1 Radha Alive No TTN variant Sister 2 Gloria Sister 3 Karly Son Mike Alive Social History Tobacco Use Types Packs/Day Years Used Date Smoking Tobacco: Never Assessed [facility] Utilities Answer Date Recorded In the past 12 months has [employer], gas, oil, or water [employer] threatened to shut off services in your [...] your living situation today? I [facility] to live 08/28/2023 Comments Unknown Sex and Gender Information Value Date Recorded Sex Assigned at Female 07/13/2023 12:37 AM [employer] ARCHITECT Legal Sex Female 6:45 AM [employer] WEB ARCHITECT Gender Identity Female 07/13/2023 12:37 AM JAVA WEB ARCHITECT Sexual Orientation Straight 07/13/2023 12 :37 AM JAVA WEB ARCHITECT Last Filed Vital Signs Vital Sign Reading Time Taken Comments Blood Pressure - - Pulse - - Temperature - - Respiratory Rate - - Oxygen Saturation - - Inhaled Oxygen Concentration - - Weight 98.2 kg (216 lb 7.9 oz) 09/01/2023 1:09 P M JAVA WEB ARCHITECT Height 166 cm (5' 5.35) 09/01/2023 1:09 PM JAVA WEB ARCHITECT Body Mass Index 35.64 09/01/2023 1:09 PM JAVA WEB ARCHITECT Plan of Treatment Health Maintenance Due Date [...] complete this topic Insurance Dr Murray [address] [place] [id number] MEDICARE [facility] Care Teams Double Back Operator Relationship Specialty Start Date End Date Elsewhere, Pcp PCP - General Internal Medicine 09/01/23
--- OUTSIDE RECORDS SUMMARY | 2024-10-08 09:35 | XMS_ITS | Clinical Summary ---
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 Karmen Darlene Cherucheril PA-C Muscular dystrophy Other lesions of median nerve, bilateral upper limbs 431153810 (SNOMED CT) 11/24 Active 11/24 Michael Weems MD Lesion of median nerve Bladder instability 866246872 (SNOMED CT) 10/31 Active 10/31 Afshin Hsu MD Irritability of urinary bladder Numbness, hand 824123714 (SNOMED CT) 08/24 Active 08/24 Karmen Darlene Cherucheril PA-C Numbness of limbs Upper arm pain, right 670352524 (SNOMED CT) 08/24 Active 08/24 Karmen Darlene Cherucheril PA-C Pain in right arm Upper arm pain, left 034247734 (SNOMED CT) 08/24 Active 08/24 Karmen Darlene Cherucheril PA-C Pain in left arm Shoulder pain, right 74998637394 306756 (SNOMED CT) 08/24 Active 08/24 Karmen Darlene Cherucheril PA-C Pain of right shoulder joint Shoulder pain, left 30580613938 141062 (SNOMED CT) 08/24 Active 08/24 Karmen Carrera PA-C Pain of left shoulder joint Lumbar radiculopat hy, left 067387242 (SNOMED CT) 07/21 Active 07/21 Afshin Hsu MD Lumbar radiculopathy Myopathy 205855898 (SNOMED CT) 03/22 Active 03/22 Karmen Carrera PA-C Disorder of muscle Sleep disturbance , nos 92695278 (SNOMED CT) 02/24 Active 02/24 Rodolfo Conrad MD Sleep apnea Syncope 347135378 (SNOMED CT) 08/16 Active 08/17 Rodolfo Conrad MD Syncope History of head injury 490879608 (SNOMED CT) 08/02 Active 08/02 Rodolfo Conrad MD History of head injury Strain of muscle, fascia and tendon at neck level, sequela S16.1xxS (ICD-10-CM) 12/11 Active 12/11 Monika Alicia Fletcher DNP,PRODUCT APPLICATIONS ENGINEER,CN P Strain of muscle, fascia and tendon at neck level, sequela Lumbar disc degeneratio n 55376063 (SNOMED CT) 12/11 Active 12/11 Monika Alicia Fletcher DNP,PRODUCT APPLICATIONS ENGINEER,CN P Degeneration of lumbar intervertebral disc Weakness of right leg 799334703 (SNOMED CT) 07/11 Active 07/11 Monika Alicia Fletcher DNP,PRODUCT APPLICATIONS ENGINEER,CN P Monoparesis of lower limb Lumbar degenerativ e disc 722.52 (ICD-9-CM) 12/11 Inactive 12/11 Brent Mcgraw DO Degeneration of lumbar or lumbosacral intervertebral disc Low back pain 805216994 (SNOMED CT) 12/11 Active 12/11 Brent Brockmann DO Low back pain Leg pain 16468622 (SNOMED CT) 12/11 Active 12/11 Brent Mcgraw DO Pain in lower limb Dysequilibr ium 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 (SNOMED CT) 12/11 Active 12/11 Brent Mcgraw DO Dysequilibrium syndrome Cervical strain 817321480 (SNOMED CT) 12/11 Inactive 12/11 Brent Mcgraw DO Strain of neck muscle Low back pain 271427740 (SNOMED CT) 12/11 Active 12/11 Brent Mcgraw DO Low back pain ULNAR NEUROPATHY 588729140 (SNOMED CT) 08/17 Active 08/17 Harvey Camara MD Ulnar neuropathy UNSPECIFIED VITAMIN D DEFICIENCY 79185994 (SNOMED CT) 07/05 Active 07/05 Brent Mcgraw DO Vitamin D deficiency HYPOTHYROID ISM 76728634 (OMED CT) 07/05 Active 07/05 Brent Mcgraw DO Hypothyroidism MUSCULOSKEL ETAL SYMPTOMS, NOS R29.898 (ICD-10-CM) 08/04 Active 08/04 Brent Mcgraw DO Other symptoms and signs involving the musculoskeleta l system MUSCLE WEAKNESS 79119156 (SNOMED CT) 08/04 Active 08/04 Brent Mcgraw DO Muscle weakness Medications Medication Instructions Start Date Stop Date Generic Name [facility] Provider AMPHETAMINE-DEXT ROAMPHET ER 10 MG [id number] 02/13 dextroamphetamine -amphetamine 31043254614 Afshin Hsu MD AMPHETAMINE-DEXT ROAMPHET ER 10 MG [id number] take 1 pill every morning as needed dextroamphetamine -amphetamine 41466039979 Afshin Hsu MD MELOXICAM 15 MG TABS 01/15 meloxicam 92974217831 Karmen Carrera PA-C COMBIVENT RESPIMAT 20-100 MCG/ACT AERS as needed 01/15 ipratropium-albut joseline 62679651625 Karmen Carrera PA-C BACTROBAN 2 % EXTERNAL OINTMENT as needed 01/15 BACTROBAN 2 % EXTERNAL OINTMENT Karmen Darlene Cherucheril PA-C MECLIZINE HCL 25 MG TABS as needed 01/15 meclizine 40685184389 Karmen Guzmanyo MOREJON-C EZETIMIBE 10 MG TABS ezetimibe 50352229298 Karmen Carrera JEAN-PIERRE-C AMPHETAMINE-DEXT ROAMPHET ER 10 MG [id number] 11/15 dextroamphetamine -amphetamine 31613109310 Karmen Guzmanyo MOREJON-C ADULT ASPIRIN EC LOW STRENGTH 81 MG ORAL TABLET DELAYED RELEASE 1 once a day 03/22 ADULT ASPIRIN EC LOW STRENGTH 81 MG ORAL TABLET DELAYED RELEASE Monika Fletcher DNP,PRODUCT APPLICATIONS ENGINEER,PROCUREMENT PROFESSIONAL LEVOFLOXACIN 500 MG TABS 03/22 levofloxacin 16721600264 Monika Fletcher DNP,PRODUCT APPLICATIONS ENGINEER,PROCUREMENT PROFESSIONAL MONTELUKAST SODIUM 10 MG TABS montelukast 82413714553 Monika Fletcher DNP,PRODUCT APPLICATIONS ENGINEER,PROCUREMENT PROFESSIONAL OXYBUTYNIN CHLORIDE ER 10 MG [id number] 03/22 oxybutynin chloride 00930734155 Monika Fletcher DNP,PRODUCT APPLICATIONS ENGINEER,PROCUREMENT PROFESSIONAL MECLIZINE HCL 25 MG TABS as needed 01/15 meclizine 11666191293 Monika Fletcher DNP,PRODUCT APPLICATIONS ENGINEER,PROCUREMENT PROFESSIONAL COMBIVENT RESPIMAT 20-100 MCG/ACT AERS as needed 01/15 ipratropium-albut joseline 17485165882 Monika Fletcher DNP,PRODUCT APPLICATIONS ENGINEER,PROCUREMENT PROFESSIONAL LEVOTHYROXINE SODIUM 150 MCG TABS levothyroxine 24896982539 Monika Fletcher DNP,PRODUCT APPLICATIONS ENGINEER,PROCUREMENT PROFESSIONAL EPIPEN 2-NICKOLAS 0.3 MG/0.3ML SOAJ epinephrine 98814976387 Monika Fletcher DNP,PRODUCT APPLICATIONS ENGINEER,PROCUREMENT PROFESSIONAL BACTROBAN 2 % EXTERNAL OINTMENT as needed 01/15 BACTROBAN 2 % EXTERNAL OINTMENT Monika Fletcher DNP,PRODUCT APPLICATIONS ENGINEER,PROCUREMENT PROFESSIONAL MELOXICAM 15 MG TABS 01/15 meloxicam 51643087281 Monika Fletcher DNP,PRODUCT APPLICATIONS ENGINEER,PROCUREMENT PROFESSIONAL AMLODIPINE BESYLATE 2.5 MG TABS 03/22 amlodipine 11181420769 Monika Fletcher DNP,PRODUCT APPLICATIONS ENGINEER,PROCUREMENT PROFESSIONAL D 5000 125 MCG (5000 UT) CAPS once a day cholecalciferol (vitamin d3) 57628198615 Monika Fletcher DNP,PRODUCT APPLICATIONS ENGINEER,PROCUREMENT PROFESSIONAL FLUZONE HIGH-DOSE 0.5 ML INTRAMUSCULAR SUSPENSION PREFILLED SYRINGE 03/22 FLUZONE HIGH-DOSE 0.5 ML INTRAMUSCULAR SUSPENSION PREFILLED SYRINGE Monika Fletcher DNP,PRODUCT APPLICATIONS ENGINEER,PROCUREMENT PROFESSIONAL SERTRALINE HCL 100 MG TABS sertraline 25680346645 Monika Fletcher DNP,PRODUCT APPLICATIONS ENGINEER,PROCUREMENT PROFESSIONAL DULERA AERO 08/23 MOMETASONE FURO-FORMOTEROL FUM AERO 85855075308 Rodolfo Conrad MD AMMONIUM LACTATE 12 % CREA as needed 08/23 AMMONIUM LACTATE 97355182291 Rodolfo Conrad MD AMMONIUM LACTATE 12 % CREA as needed 10/15 AMMONIUM LACTATE 83006420750 Monika Fletcher DNP,PRODUCT APPLICATIONS ENGINEER,PROCUREMENT PROFESSIONAL BACTROBAN 2 % EXTERNAL OINTMENT as needed 03/22 MUPIROCIN 23064113242 Monika Fletcher DNP,PRODUCT APPLICATIONS ENGINEER,PROCUREMENT PROFESSIONAL MECLIZINE HCL 25 MG TABS as needed 03/22 MECLIZINE HCL 87925737202 Monika Fletcher DNP,PRODUCT APPLICATIONS ENGINEER,PROCUREMENT PROFESSIONAL DULERA AERO 08/23 MOMETASONE FURO-FORMOTEROL FUM AERO 83855408658 Monika Fletcher DNP,PRODUCT APPLICATIONS ENGINEER,PROCUREMENT PROFESSIONAL VITAMIN D3 125 MCG (5000 UT) CAPS daily 03/22 CHOLECALCIFEROL 56665804920 Monika Fletcher DNP,PRODUCT APPLICATIONS ENGINEER,PROCUREMENT PROFESSIONAL COMBIVENT RESPIMAT AERS as needed 03/22 IPRATROPIUM-ALBUT JOSELINE AERS 45379010377 Monika Fletcher DNP,PRODUCT APPLICATIONS ENGINEER,PROCUREMENT PROFESSIONAL ADULT ASPIRIN EC LOW STRENGTH 81 MG ORAL TABLET DELAYED RELEASE One pill daily 03/22 ASPIRIN 50006487690 Monika Fletcher DNP,PRODUCT APPLICATIONS ENGINEER,PROCUREMENT PROFESSIONAL EPIPEN 2-NICKOLAS 0.3 MG/0.3ML SOAJ 10/15 EPINEPHRINE 12764546988 Monika Fletcher DNP,PRODUCT APPLICATIONS ENGINEER,PROCUREMENT PROFESSIONAL OXYBUTYNIN CHLORIDE ER 10 MG [id number] 08/17 OXYBUTYNIN CHLORIDE 13017901652 Monika Fletcher DNP,PRODUCT APPLICATIONS ENGINEER,PROCUREMENT PROFESSIONAL SERTRALINE HCL 100 MG TABS 03/22 SERTRALINE HCL 24799885903 Monika Fletcher DNP,PRODUCT APPLICATIONS ENGINEER,PROCUREMENT PROFESSIONAL MONTELUKAST SODIUM 10 MG TABS 03/22 MONTELUKAST SODIUM 71217894347 Monika Fletcher DNP,PRODUCT APPLICATIONS ENGINEER,PROCUREMENT PROFESSIONAL LEVOTHYROXINE SODIUM 150 MCG TABS 10/15 LEVOTHYROXINE SODIUM 07986091911 Monika Fletcher DNP,PRODUCT APPLICATIONS ENGINEER,PROCUREMENT PROFESSIONAL AMLODIPINE BESYLATE 2.5 MG TABS 10/15 AMLODIPINE BESYLATE 09863608048 Monika Fletcher DNP,PRODUCT APPLICATIONS ENGINEER,PROCUREMENT PROFESSIONAL FLUZONE HIGH-DOSE 0.5 ML DESTINY INFLUENZA VAC SPLIT HIGH-DOSE 73570378403 Monika Fletcher DNP,PRODUCT APPLICATIONS ENGINEER,PROCUREMENT PROFESSIONAL MELOXICAM 15 MG TABS 03/22 MELOXICAM 26102996135 Monika Fletcher DNP,PRODUCT APPLICATIONS ENGINEER,PROCUREMENT PROFESSIONAL LEVOFLOXACIN 500 MG TABS 03/22 LEVOFLOXACIN 43243351043 Monika Fletcher DNP,PRODUCT APPLICATIONS ENGINEER,PROCUREMENT PROFESSIONAL ZANAFLEX 4MG 1 po qhs and bid prn muscle stiffness and pain 07/11 ZANAFLEX 4MG Monika Fletcher DNP,PRODUCT APPLICATIONS ENGINEER,PROCUREMENT PROFESSIONAL LYRICA 75 MG CAPS 1 po bid 02/26 PREGABALIN 61844339615 Kendy Soto MS PA-C LYRICA 50 MG CAPS take 1 tab daily in am 02/26 PREGABALIN 20969009166 Kendy Soto MS PA-C LYRICA 50 MG CAPS take 1 tab daily in am 10/15 PREGABALIN 57953557617 Kendy Soto MS PA-C LYRICA 75 MG CAPS 1 po bid 10/15 PREGABALIN 44882057618 Brent AliciaFelipa Tarrel DO ZANAFLEX 4MG 1 [...] hands and feet Critical Active Monika Fletcher DNP,PRODUCT APPLICATIONS ENGINEER,PROCUREMENT PROFESSIONAL GABAPENTIN myalgia Critical Active Monika Fletcher DNP,PRODUCT APPLICATIONS ENGINEER,PROCUREMENT PROFESSIONAL SHELLFISH anaphylactic reaction Critical Active Monika Fletcher DNP,PRODUCT APPLICATIONS ENGINEER,PROCUREMENT PROFESSIONAL CHOLESTOFF PLUS myalgia pain Critical Active Monika Fletcher DNP,PRODUCT APPLICATIONS ENGINEER,PROCUREMENT PROFESSIONAL FENOFIBRATE myalgia pain Critical Active Monika Cristobaligel DNP,PRODUCT APPLICATIONS ENGINEER,PROCUREMENT PROFESSIONAL DICYCLOMINE HCL confusion Critical Active Monika Fletcher DNP,PRODUCT APPLICATIONS ENGINEER,PROCUREMENT PROFESSIONAL ADHESIVE BANDAGES blisters Critical Active Valdez Fletcher DNP,PRODUCT APPLICATIONS ENGINEER,PROCUREMENT PROFESSIONAL ATORVASTATIN CALCIUM severe myalgia and pain Critical Active Monika Cristobaligel DNP,PRODUCT APPLICATIONS ENGINEER,PROCUREMENT PROFESSIONAL FLUTICASONE PROPIONATE rash Critical No Longer Active Monika Fletcher DNP,PRODUCT APPLICATIONS ENGINEER,PROCUREMENT PROFESSIONAL MEIJER ANTIHISTAMINE ALLERGY paradoxical effect Critical Active Monika Cristobaligel DNP,PRODUCT APPLICATIONS ENGINEER,PROCUREMENT PROFESSIONAL BUPROPION HCL anxiety and confusion Critical Act huma Monika Fletcher DNP,PRODUCT APPLICATIONS ENGINEER,PROCUREMENT PROFESSIONAL THEOPHYLLINE neurological issues Critical Active Monika Fletcher DNP,PRODUCT APPLICATIONS ENGINEER,PROCUREMENT PROFESSIONAL CARBAMAZEPINE rash-Dexter Babatunde' s syndrome Critical Active Monika Fletcher DNP,PRODUCT APPLICATIONS ENGINEER,PROCUREMENT PROFESSIONAL SULFAMETHOXAZOLE-TRI METHOPRIM allergic reaction of confusion and vomiting Critical Active Monika Fletcher DNP,PRODUCT APPLICATIONS ENGINEER,PROCUREMENT PROFESSIONAL METHYLPHENIDATE HCL heart issues Critical Active Monika Cristobaligel DNP,PRODUCT APPLICATIONS ENGINEER,PROCUREMENT PROFESSIONAL NABUMETONE allergic rash Critical Active Monika Cristobaligel DNP,PRODUCT APPLICATIONS ENGINEER,PROCUREMENT PROFESSIONAL METOCLOPRAMIDE HCL allergic rash Critical Active Monika Cristobaligel DNP,PRODUCT APPLICATIONS ENGINEER,PROCUREMENT PROFESSIONAL FLUOXETINE HCL hypertension Critical Active A richardson Fletcher DNP,PRODUCT APPLICATIONS ENGINEER,PROCUREMENT PROFESSIONAL PREDNISONE (NCIKOLAS) swelling and lung issues Critical Active Monika Fletcher DNP,PRODUCT APPLICATIONS ENGINEER,PROCUREMENT PROFESSIONAL PENICILLIN G POTASSIUM allergic rash Critical Active Monika Fletcher DNP,PRODUCT APPLICATIONS ENGINEER,PROCUREMENT PROFESSIONAL IBUPROFEN esophagitis Critical Active Monika Fletcher DNP,PRODUCT APPLICATIONS ENGINEER,PROCUREMENT PROFESSIONAL METHACHOLINE/LIVER blisters on skin Critical Act huma Monika Fletcher DNP,PRODUCT APPLICATIONS ENGINEER,PROCUREMENT PROFESSIONAL CODEINE SULFATE restricted breathing Critical Ac tive Monika Fletcher DNP,PRODUCT APPLICATIONS ENGINEER,PROCUREMENT PROFESSIONAL LITHIUM CARBONATE muscle weakness and semiconsciousness Critical Active Monika Fletcher DNP,PRODUCT APPLICATIONS ENGINEER,PROCUREMENT PROFESSIONAL LORAZEPAM addiction Critical Active Monika Fletcher DNP,PRODUCT APPLICATIONS ENGINEER,PROCUREMENT PROFESSIONAL Results Date Name Value Unit Range Flag [...] 12:00 PM Michael Weems MD , [address], [address], [place], [address], Pending order Follow up Pending order Follow [...] with Neurologist or JERAD ORDERS Patient Instructions [id number] Other Referral [id number] Other Referral ORDERS Other Lab ORDERS Follow up ORDERS Other Order ORDERS Patient Instructions ORDERS Patient Instructions ORDERS Obtain outside records 12/09 CPT-00868 Nerve Conduction 13 or more studies 11/24 CPT-54777 EMG with NCS (5+ muscles) - 3 limbs 11/24 [id number] MRI-Thoracic W/O CPT-30592 MRI Thoracic W/O [id number] Other Referral ORDERS Physical Therapy ORDERS EMG [...] Therapy ORDERS Physical Therapy ORDERS Other Order [id number] MRI-Lumbar W/O ORDERS Follow up ORDERS Other Order ORDERS EMG bilateral upper ext 2020 ORDERS EMG bilateral low ext 03/22 CPT-10260 Nerve Conduction 9-10 studies CPT-38874 EMG with NCS (5+ muscles) - 2 limbs 03/31 ORDERS Follow up ORDERS Other Order ORDERS Follow up [id number] Documentation of current medicatio ns ORDERS Follow up SCT-[id number] Documentation of current medicatio ns LOINC 41769-8 Fall risk assessment 09/01 ORDERS Sleep Consult LOINC 28181-0 Fall risk assessment 02/24 SCT-[id number] Documentation of current medicatio ns ORDERS Follow up SCT-800674312 Fall risk assessment (procedure) SCT-[id number] Documentation of current medicatio ns CPT-26242 EEG EXTENDED 61-119mins (END) ORDERS EEG Extended SCT-[id number] Fall risk assessment (procedure) SCT-691247163 Fall risk assessment (procedure) SCT-[id number] Documentation of current medicatio ns SCT-753076410 Fall risk assessment (procedure) ORDERS Patient Instructions [id number] MRI-Lumbar W/O CPT-49084 MRI Lumbar W/O ORDERS Patient Instructions [id number] Documentation of current medicatio ns [id number] Other Referral CPT-30648 Nerve Conduction 5-6 studies CPT-39486 EMG with NCS (5+ muscles) - 2 limbs 12/26 CPT-12120 Sensory NCS x 6 CPT-75038 Motor NCS and Fwave x 4 2008 CPT-27783 H-reflex x 1 CPT-80502 EMG 2 limb Vital Signs Date Name [...]
--- OUTSIDE RECORDS SUMMARY | 2024-10-08 09:35 | XMS_ITS | Clinical Summary ---
Author Organization [facility] Address [address] [place] [address] Care Team Providers Care Physical Meteorologist Name Role Phone Megan Woods MD Unavailable [phone] Ning Dunn DO Primary Care Provider [phone] Allergies Active Allergy Reactions Criticality Noted Date [...] Itchy rash, burning Latex, Natural Rubber Hives,Rash Worley Other - Describe In Comment Field High [...] muscle issues Shellfish Containing Products Dizziness 06/05/2014 Quysrls-Wmi-Xom Reductase Inhibitors Myalgia 08/18/2011 Sulfa (Sulfonamide Antibiotics) [...] magic mouthwash 1:1:1 (diphen 12.5mg/5mL-lidocai ne 2%-maalox [phone]/5ml) (AMB MIX)Indications:Mo uth sore Swish and spit [...] 2015: Referral placed for further evaluation at [facility] neurology as patient reports progressing symptoms. Neuropathic [...] muscular disorder Saw neuromuscular specialist at the [facility] per patient Has chronically elevated CK. 2014 saw Rheumatology and neurology with no known etiology for symptoms Referral [facility] for further evaluation regarding symptoms is pending [...] Encounters Date Type Department Care Team Description 10/04/2024 Travel 09/27/2024 Orders Only [facility] Scanner 1 scan: (1-Ord) [facility], XR CHEST 1V PORTABLE, 09/27/2024 09/25/2024 Medical Messaging [facility] [address] [place] [address] Ning Dunn DO Referral request 09/09/2024 Nurse Triage [facility] [address] [place] [address] Ning Dunn DO Blood Body Fluid Exposure; Sores In Mouth 09/09/2024 Telephone [facility] [address] [place] [address] Ning Dunn DO OTHER (Mrsa) 09/04/2024 2:20 PM TABLE TOP TILE SETTER Telemedicine [facility] [address] [place] [address] Ning Dunn DO Shoulder Pain/problem (Bilateral shoulder and upper arms ongoing getting worse-referral [facility] for injections); Medication Management (2 tylenol 3 times daily, 3 ibuprofen 3 times daily-liver); Refill Request (Magic mouthwash for sore in mouth) 07/30/2024 3:00 PM TABLE TOP TILE SETTER Telemedicine [facility] [address] [place] [phone] Hayden Blanc MD 07/30/2024 Travel 07/11/2024 Refill [facility] [address] [place] [address] Ning Dunn DO Refill Request (Dextroamphetamine- amphetamine) 07/10/2024 2:30 PM TABLE TOP TILE SETTER Office Visit [facility] [address] [place] [address] Aamir Rosas MD Sleep Follow-up 07/10/2024 Travel from Last 3 Months Immunizations Immunization [...] AM CDT Legal Sex Female 6:09 AM TABLE TOP TILE SETTER Gender Identity Female 03/12/2020 1:26 AM CDT [...] Comments Blood Pressure 169/78 07/10/2024 2:44 PM TABLE TOP TILE SETTER Pulse 57 07/10/2024 2:36 PM TABLE TOP TILE SETTER Temperature 36.9 C (98.5 F) 03/11/2021 1:17 PM CDT Respiratory Rate 12 04/08/2019 2:35 PM CDT Oxygen Saturation 96% 07/10/2024 2:36 PM TABLE TOP TILE SETTER Inhaled Oxygen Concentration - - Weight 104 kg (229 lb 3.2 oz) 07/10/2024 2:36 PM TABLE TOP TILE SETTER Height 162.6 cm (5' 4) 07/10/2024 2:36 PM TABLE TOP TILE SETTER Body Mass Index 39.34 07/10/2024 2:36 PM TABLE TOP TILE SETTER Plan of Treatment Upcoming Encounters Date Type Department Care Team (Late st Contact Info) Description 10/09/2024 10:50 AM CDT Office Visit [facility] [address] [place] [address] Ning Dunn DO [address] [place] [address] Health Maintenance Due Date Last Done Comments [...] age 50+ Completed 10/11/2014 [facility] 10/03/2014, 03/19/2013 Zoster (shingles) series for age 50+ Completed 06/14/2018, 03/21/2018 DEXA/DXA scan for age 65+ Completed 04/29/2020, Hepatitis C screening for ag e 18-79 Completed 03/19/2021, 03/19/2012 RSV vaccine for adults or Completed 04/08/2023 Influenza Vaccine Completed 03/06/2024, , 03/12/2020, Additional history exists Procedures Procedure Name Priority Date/Time Associated Diagnosis Comments SCAN-RADIOLOGY REPORT 09/27/2024 12:00 AM CDT ANTI HCV Add On 03/19/2021 3:41 PM CDT Elevated liver enzymes XR DXA BONE DENSITY 1 SITE AXIAL AND 1 SITE PERIPHERAL Routine 04/29/2020 1:54 PM CDT Asymptomatic postmenopausal state from Last 3 Months or Most Recently Relevant to Health Maintenance Results * SCAN-RADIOLOGY REPORT (09/27/2024 12:00 AM CDT) Anatomical Region Laterality Modality Other us Scanner OTHER Final Result * ANTI HCV (03/19/2021 3:41 PM CDT) HEPATITIS C ANTIBODY Non-React huma Non-React huma 03/20/2021 11:31 PM CDT [facility] [employer] [facility] Comment:Antibodies to HCV no t detected; does not exclude the possibility of exposure to HCV. Blood BLOOD SPECIMEN / Unknown Venipuncture / Unknown 03/19/2021 3:41 PM CDT 03/19/2021 3:41 PM CDT us Ning Dunn DO SEND OUTS Final Resu lt [facility] [address] [place] [address], [place] * XR DXA BONE DENSITY 1 SITE AXIAL AND 1 SITE PERIPHERAL (04/29/2020 1:54 PM CDT) Anatomical Region Laterality Modality LUMBAR SPINE Other Narrative 05/10/2020 3:57 PM TABLE TOP TILE SETTER Please see scanned document for results of this study. 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
[2024-10-08 09:49] VITALS: BP 151/69; PULSE 70; RESP 16; TEMP 36.8; O2SAT 97; BMI 38.3
--- NOTE | 2024-10-08 10:23 | CRLHL7_ITS ---
For Patients: As a result of the Century Cures Act, medical imaging exams and procedure reports are released immediately into your electronic medical record. You may view this report before your referring provider. If you have questions, please contact your health care provider. INDICATION: Cough COMPARISON: 09/27/2024 chest radiograph TECHNIQUE: Two radiographic view(s) of the chest. FINDINGS: No pleural effusion. No pneumothorax. No definite focal pulmonary consolidation. Normal heart size. There are osseous degenerative changes. Slight anterior vertebral body wedging most conspicuous in the midthoracic spine. IMPRESSION: No acute cardiopulmonary findings. Dictated by Rodolfo Diehl MD @ 10/08/2024 11:07:42 AM (Electronically Signed)
--- NOTE | 2024-10-08 10:23 | ED.GENADULT ---
HPI - General Adult General Chief complaint: Unspecified Complaint, Adult Stated complaint: SOB - Time Seen by Provider: 10/08/24 10:15 History of Present Illness HPI narrative: This 74-year-old female comes in reporting an episode of inability to breathe. She states that she had been drinking a smoothie around that time but she also has been coughing persistently over the past several weeks. She states that she is feeling better in regard to the upper respiratory infection but continues to cough. She thinks that she might have had some kind of muscle spasm that cause these symptoms. She did not choke on anything however when she could not breathe for those few seconds she did throw herself against a chair to attempt a Heimlich type maneuver. She did not lose consciousness and states that she feels back to normal currently. She states that she had an x-ray done last week which was negative. She also took a steroid for a few days which brought good relief to her symptoms but after discontinuing it she began coughing more. She does have a history of asthma symptoms but has not used any inhalers as she states she is taking Singulair daily and this is controlling her symptoms. Related Data Home Medications ?Medication ?Instructions ?Recorded ?Confirmed dextroamphetamine-amphetamine ER 10 mg PO DAILY 06/01/22 09/28/24 10 mg 24hr capsule,extend release diclofenac sodium 1 % topical gel 2 g topical QID 06/01/22 09/28/24 levothyroxine 150 mcg tablet 150 mcg PO DAILY 06/01/22 09/28/24 montelukast 10 mg tablet 10 mg PO DAILY 06/01/22 09/28/24 sertraline 100 mg tablet 100 mg PO Q24H 06/01/22 09/28/24 tizanidine 2 mg tablet 2 mg PO PRN 06/01/22 09/09/24 acetaminophen 500 mg tablet 500 mg PO Q6H PRN 02/13/23 09/28/24 (Tylenol Extra Strength) ibuprofen 200 mg capsule 600 mg PO Q6H PRN 09/09/24 09/28/24 Previous Rx's ?Medication ?Instructions ?Recorded albuterol sulfate 90 mcg/actuation 2 puff inhalation Q4-6H PRN 09/27/24 aerosol inhaler shortness of breath or wheezing #8.5 grams prednisone 20 mg tablet 20 mg PO DAILY #4 tabs 09/27/24 benzonatate 100 mg capsule 100 mg PO BID PRN cough #14 caps 09/28/24 methylprednisolone 4 mg tablets in See Rx Instructions PO .COMPLEX 10/08/24 a dose pack (Medrol (Siddhartha)) #21 ea Allergies Allergy/AdvReac Type Severity Reaction Status Date / Time codeine Allergy Severe SOB Verified 09/28/24 17:38 adhesive Allergy Intermediate contact Verified 09/28/24 17:38 dermatitis lithium Allergy Intermediate falling Verified 09/28/24 17:38 bupropion Allergy Mild anxiety Verified 09/28/24 17:38 fluoxetine Allergy Mild Hypertensio Verified 09/28/24 17:38 n fluticasone Allergy Mild Rash Verified 09/28/24 17:38 gabapentin Allergy Mild myaglia Verified 09/28/24 17:38 ibuprofen (From Motrin) Allergy Mild Nausea Verified 09/28/24 17:38 Latex, Natural Rubber Allergy Mild hives Verified 09/28/24 17:38 lorazepam (From Ativan) Allergy Mild medical Verified 09/28/24 17:38 addication methacholine Allergy Mild Hives Verified 09/28/24 17:38 nitrile Allergy Mild Rash Verified 09/28/24 17:38 Penicillins Allergy Mild hives Verified 09/28/24 17:38 shellfish derived Allergy Mild Dizziness Verified 09/28/24 17:38 [id number] Reductase Allergy Mild myalgia Verified 09/28/24 17:38 Inhibitor Sulfa (Sulfonamide Allergy Mild confusion Verified 09/28/24 17:38 Antibiotics) theophylline Allergy Mild Confusion Verified 09/28/24 17:38 aspirin Allergy Unknown asthma Verified 09/28/24 17:38 attack, breathing problems carbamazepine Allergy Unknown Verified 09/28/24 17:38 dicyclomine Allergy Unknown Confusion Verified 09/28/24 17:38 fenofibrate Allergy Unknown myalgia Verified 09/28/24 17:38 methylphenidate Allergy Unknown rapid Verified 09/28/24 17:38 pulse, confusion, smooth muscle issues metoclopramide Allergy Unknown Rash Verified 09/28/24 17:38 nabumetone Allergy Unknown Verified 09/28/24 17:38 nickel Allergy Unknown Verified 09/28/24 17:38 prednisone Allergy Unknown swelling Verified 09/28/24 17:38 hands pregabalin Allergy Unknown exfoliating Verified 09/28/24 17:38 dermatitis amlodipine besylate Allergy Mild rash Uncoded 09/09/24 18:56 plant stanol daron Allergy Mild myalgia Uncoded 09/09/24 18:56 Review of Systems Status of ROS: Reports: 10 or more systems reviewed and unremarkable except as noted in History and below Narrative: Constitutional: No fevers, no weight gain or loss. Eyes: No discharge. No vision changes. HENT: No congestion, no sore throat, no ear pain. Cardiovascular: No chest pain, no palpitations. Respiratory: Persistent cough. Episode where she was briefly unable to move air. Gastrointestinal: No abdominal pain, no vomiting, no diarrhea. Genitourinary: No dysuria, no hematuria. Musculoskeletal: Normal range of motion. Skin: No rashes, no pruritis. Neurological: No dizziness, weakness, sensory change, speech change. Endo/Heme/Allergies: No bruising or bleeding. No polydipsia. Pysch: no suicidality, no anxiety, no insomnia. All other systems reviewed and are negative. [facility] Medical History Fracture of transverse process of vertebra Vitamin D deficiency (09/28/09) ?E55.9 - Vitamin D deficiency, unspecified (ICD-10) Closed head injury (1988) ?S09.90XA - Unspecified injury of head, initial encounter (ICD-10) History of methicillin resistant Staphylococcus aureus infection ?Z86.14 - Personal history of Methicillin resistant Staphylococcus aureus infection (ICD-10) Surgical History History of phacoemulsification of cataract of right eye with intraocular lens implantation (06/07/17) ?Z98.41 - Cataract extraction status, right eye (ICD-10) ?Z96.1 - Presence of intraocular lens (ICD-10) History of phacoemulsification of cataract of left eye with intraocular lens implantation (06/21/17) ?Z98.42 - Cataract extraction status, left eye (ICD-10) ?Z96.1 - Presence of intraocular lens (ICD-10) Retinal tear (2004) ?H33.319 - Horseshoe tear of retina without detachment, unspecified eye (ICD-10) H/O tubal ligation ?Z98.51 - Tubal ligation status (ICD-10) H/O breast biopsy ?Z98.890 - Other specified postprocedural states (ICD-10) 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 HEENT: Normocephalic, atraumatic. Neck: Normal range of motion. Nontender. Supple. Heart: Regular. No murmurs. Normal rate. Intact distal pulses. Lungs: Clear to auscultation. No chest discomfort. No wheezes, rhonchi, or rales. Abdomen: Normal bowel sounds. Nontender. No rebound tenderness. Genitalia: Deferred. Back: No midline tenderness. Normal range of motion. Extremities: Normal range of motion. No injury. Skin: Intact. No rash. Warm. No erythema or pallor. Neurologic: No altered sensation. No weakness. Alert and oriented. Psychiatric: No suicidality. No anxiety or depression. No insomnia. Nursing notes and vitals signs are reviewed. Const: Vital Signs, click to edit/add: Vital Signs - 24 hr 10/08/24 09:49 Temperature 98.3 F Pulse Rate [Pulse Oximeter] 70 Respiratory Rate 16 Blood Pressure [Ri ght Upper Arm] 151/69 H Pulse Oximetry 97 Oxygen Delivery Me thod Room Air Course Vital Signs Vital signs: Initial Vital Signs Temperature 98.3 F 10/08/24 09:49 Temperature Source Temporal Artery Scan 10/08/24 09:49 Pulse Rate 70 10/08/24 09:49 Respiratory Rate 16 10/08/24 09:49 Blood Pressure 151/69 H 10/08/24 09:49 Blood Pressure Mean 96 10/08/24 09:49 Blood Pressure Position Sitting 10/08/24 09:49 Pulse Oximetry 97 10/08/24 09:49 Oxygen Delivery Method Room Air 10/08/24 09:49 Vital Signs Temperature 98.3 F 10/08/24 09:49 Pulse Rate 70 10/08/24 09:49 Respiratory Rate 16 10/08/24 09:49 Blood Pressure 151/69 H 10/08/24 09:49 Pulse Oximetry 97 10/08/24 09:49 Oxygen Delivery Method Room Air 10/08/24 09:49 Temperature 98.3 F 10/08/24 09:49 Pulse Rate 70 10/08/24 09:49 Respiratory Rate 16 10/08/24 09:49 Blood Pressure 151/69 H 10/08/24 09:49 Pulse Oximetry 97 10/08/24 09:49 Oxygen Delivery Method Room Air 10/08/24 09:49 Medical Decision Making MDM Narrative Medical decision making narrative: This patient had a brief episode of inability to move air that she attributes to some kind of spasm. She does have a persistent cough related to an upper respiratory infection. She arrives here with normal vital signs and states that she feels back to normal except for little bit anxious over what happened. I did obtain a chest x-ray and this returns with no acute findings. Patient is okay to be discharged home. I did provide a prescription for Medrol Dosepak. Imaging Data Chest x-ray: Radiologist's impression: No acute cardiopulmonary findings. Discharge Plan Discharge Clinical Impression: Cough Patient Disposition: Home, Self-Care Condition: Improved Additional Instructions: Take medication as prescribed. Follow up with MD or return if worsening. Prescriptions: New methylprednisolone [Medrol (Siddhartha)] 4 mg tablets,dose pack See Rx Instructions .ROUTE .COMPLEX Qty: 21 0RF Rx Instructions: orally per package directions No Action acetaminophen [Tylenol Extra Strength] 500 mg tablet 500 mg PO Q6H PRN ibuprofen 200 mg capsule 600 mg PO Q6H PRN prednisone 20 mg tablet 20 mg PO DAILY Qty: 4 0RF albuterol sulfate 90 mcg/actuation HFA aerosol inhaler 2 puff inhalation Q4-6H PRN (Reason: shortness of breath or wheezing) Qty: 8.5 0RF Rx Instructions: dispense with spacer please tizanidine 2 mg tablet 2 mg PO PRN Patient Comments: TAKE ONE TABLET BY MOUTH EVERY EIGHT HOURS NEEDED FOR MUSCLE SPASM sertraline 100 mg tablet 100 mg PO Q24H Patient Comments: TAKE TWO TABLETS BY MOUTH DAILY levothyroxine 150 mcg tablet 150 mcg PO DAILY Patient Comments: Take 1 Tablet (150 mcg) by mouth before breakfast. dextroamphetamine-amphetamine 10 mg capsule,extended release 24hr 10 mg PO DAILY Patient Comments: TAKE ONE CAPSULE BY MOUTH ONE TIME DAILY montelukast 10 mg tablet 10 mg PO DAILY Patient Comments: Take 1 Tablet (10 mg) by mouth at bedtime diclofenac sodium 1 % gel 2 g TOPICAL QID Patient Comments: Apply 2 g topically to affected area(s) 4 times daily benzonatate 100 mg capsule 100 mg PO BID PRN (Reason: cough) Qty: 14 0RF Follow Up/Referrals: Ning Dunn DO [Primary Care Provider] - Stand Alone Forms: [facility] Info Instructions
--- OUTSIDE RECORDS SUMMARY | 2024-10-08 10:38 | XMS_ITS | Clinical Summary ---
Author Organization [facility] Address [address] [place] [address] Care Team Providers Care Environmental Planning Engineer Name Role Phone Elsewhere, Pcp Primary Care Provider Unavailabl e Source Comments Patient records contain information from all sites at [facility]. For routine questions regarding patient records, call [phone] during business hours, M-F 8:00 AM - 5:00 PM Central Time. Record requests for emergency care only can be directed to [phone] at any time.[facility] Medications No known medications Active Problems [...] 2 Hayden Brother 3 Darrin Brother 4 Joes L Brother 5 Jace NO CHILDREN Father [...] Years Used Date Smoking Tobacco: Never Assessed [facility] Utilities Answer Date Recorded In the past 12 months has [employer], gas, oil, or water [employer] threatened to shut off services in your [...] your living situation today? [facility] 08/28/2023 Comments Unknown Sex and Gender Information Value Date Recorded Sex Assigned at Female 07/13/2023 12:37 AM SEXUAL HEALTH PHYSICIAN Legal Sex Female 6:45 AM SEXUAL HEALTH PHYSICIAN Gender Identity Female 07/13/2023 12:37 AM SEXUAL HEALTH PHYSICIAN Sexual Orientation Straight 07/13/2023 12 :37 AM SEXUAL HEALTH PHYSICIAN Last Filed Vital Signs Vital Sign Reading Time Taken Comments Blood Pressure - - Pulse - - Temperature - - Respiratory Rate - - Oxygen Saturation - - Inhaled Oxygen Concentration - - Weight 98.2 kg (216 lb 7.9 oz) 09/01/2023 1:09 P M SEXUAL HEALTH PHYSICIAN Height 166 cm (5' 5.35) 09/01/2023 1:09 PM SEXUAL HEALTH PHYSICIAN Body Mass Index 35.64 09/01/2023 1:09 PM SEXUAL HEALTH PHYSICIAN Plan of Treatment Health Maintenance Due Date [...] complete this topic Insurance Dr [address] [place] [id number] MEDICARE [facility] Care Teams Environmental Planning Engineer Relationship Specialty Start Date End Date Elsewhere, Pcp PCP - General Internal Medicine 09/01/23
--- OUTSIDE RECORDS SUMMARY | 2024-10-08 10:38 | XMS_ITS | Clinical Summary ---
Author Organization [facility] Address 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 Karmen Darlene Cherucheril PA-C Muscular dystrophy Other lesions of median nerve, bilateral upper limbs 667737302 (SNOMED CT) 11/24 Active 11/24 Michael Weems MD Lesion of median nerve Bladder instability 515661256 (SNOMED CT) 10/31 Active 10/31 Afshin Hsu MD Irritability of urinary bladder Numbness, hand 035149068 (SNOMED CT) 08/24 Active 08/24 Karmen Darlene Cherucheril PA-C Numbness of limbs Upper arm pain, right 116664874 (SNOMED CT) 08/24 Active 08/24 Karmen Darlene Cherucheril PA-C Pain in right arm Upper arm pain, left 560633331 (SNOMED CT) 08/24 Active 08/24 Karmen Darlene Cherucheril PA-C Pain in left arm Shoulder pain, right 22867857590 990193 (SNOMED CT) 08/24 Active 08/24 Karmen Darlene Cherucheril PA-C Pain of right shoulder joint Shoulder pain, left 85591379763 065063 (SNOMED CT) 08/24 Active 08/24 Karmen Carrera PA-C Pain of left shoulder joint Lumbar radiculopat hy, left 300337698 (SNOMED CT) 07/21 Active 07/21 Afshin Hsu MD Lumbar radiculopathy Myopathy 953665345 (SNOMED CT) 03/22 Active 03/22 Karmen Carrera PA-C Disorder of muscle Sleep disturbance , nos 81128825 (SNOMED CT) 02/24 Active 02/24 Rodolfo Conrad MD Sleep apnea Syncope 017570291 (SNOMED CT) 08/16 Active 08/17 Rodolfo Conrad MD Syncope History of head injury 358606603 (SNOMED CT) 08/02 Active 08/02 Rodolfo Conrad MD History of head injury Strain of muscle, fascia and tendon at neck level, sequela S16.1xxS (ICD-10-CM) 12/11 Active 12/11 Monika Alicia Fletcher DNP,AUTOMOTIVE REPAIR TECHNICIAN,CN P Strain of muscle, fascia and tendon at neck level, sequela Lumbar disc degeneratio n 65737228 (SNOMED CT) 12/11 Active 12/11 Monika Alicia Fletcher DNP,AUTOMOTIVE REPAIR TECHNICIAN,CN P Degeneration of lumbar intervertebral disc Weakness of right leg 287112258 (SNOMED CT) 07/11 Active 07/11 Moniak Alicia Fletcher DNP,AUTOMOTIVE REPAIR TECHNICIAN,CN P Monoparesis of lower limb Lumbar degenerativ e disc 722.52 (ICD-9-CM) 12/11 Inactive 12/11 Brent Mcgraw DO Degeneration of lumbar or lumbosacral intervertebral disc Low back pain 346767391 (SNOMED CT) 12/11 Active 12/11 Brent Brockmann DO Low back pain Leg pain 15214512 (SNOMED CT) 12/11 Active 12/11 Brent Mcgraw DO Pain in lower limb Dysequilibr ium 300970161 (SNOMED CT) 12/11 Active 12/11 Brent Mcgraw DO Dysequilibrium syndrome Cervical strain 886231910 (SNOMED CT) 12/11 Inactive 12/11 Brent Mcgraw DO Strain of neck muscle Low back pain 167709530 (SNOMED CT) 12/11 Active 12/11 Brent Mcgraw DO Low back pain ULNAR NEUROPATHY 802011337 (SNOMED CT) 08/17 Active 08/17 Harvey Camara MD Ulnar neuropathy UNSPECIFIED VITAMIN D DEFICIENCY 63367778 (SNOMED CT) 07/05 Active 07/05 Brent Mcgraw DO Vitamin D deficiency HYPOTHYROID ISM 30232004 (OMED CT) 07/05 Active 07/05 Brent Mcgraw DO Hypothyroidism MUSCULOSKEL ETAL SYMPTOMS, NOS R29.898 (ICD-10-CM) 08/04 Active 08/04 Brent Mcgraw DO Other symptoms and signs involving the musculoskeleta l system MUSCLE WEAKNESS 58700308 (SNOMED CT) 08/04 Active 08/04 Brent Mcgraw DO Muscle weakness Medications Medication Instructions Start Date Stop Date Generic Name [facility] Provider AMPHETAMINE-DEXT ROAMPHET ER 10 MG [id number] 02/13 dextroamphetamine -amphetamine 09130382678 Afshin Hsu MD AMPHETAMINE-DEXT ROAMPHET ER 10 MG [id number] take 1 pill every morning as needed dextroamphetamine -amphetamine 73859085792 Afshin Hsu MD MELOXICAM 15 MG TABS 01/15 meloxicam 79800906083 Karmen Carrera PA-C COMBIVENT RESPIMAT 20-100 MCG/ACT AERS as needed 01/15 ipratropium-albut joseline 81261172980 Karmen Carrera PA-C BACTROBAN 2 % EXTERNAL OINTMENT as needed 01/15 BACTROBAN 2 % EXTERNAL OINTMENT Karmen Darlene Cherucheril PA-C MECLIZINE HCL 25 MG TABS as needed 01/15 meclizine 16444348007 Karmen Guzmanyo MOREJON-C EZETIMIBE 10 MG TABS ezetimibe 08542688126 Karmen Carrera JEAN-PIERRE-C AMPHETAMINE-DEXT ROAMPHET ER 10 MG [id number] 11/15 dextroamphetamine -amphetamine 22250547525 Karmen Guzmanyo MOREJON-C ADULT ASPIRIN EC LOW STRENGTH 81 MG ORAL TABLET DELAYED RELEASE 1 once a day 03/22 ADULT ASPIRIN EC LOW STRENGTH 81 MG ORAL TABLET DELAYED RELEASE Monika Fletcher DNP,AUTOMOTIVE REPAIR TECHNICIAN,FINANCIAL DIRECTOR LEVOFLOXACIN 500 MG TABS 03/22 levofloxacin 08449845141 Monika Fletcher DNP,AUTOMOTIVE REPAIR TECHNICIAN,FINANCIAL DIRECTOR MONTELUKAST SODIUM 10 MG TABS montelukast 90872579809 Monika Fletcher DNP,AUTOMOTIVE REPAIR TECHNICIAN,FINANCIAL DIRECTOR OXYBUTYNIN CHLORIDE ER 10 MG [id number] 03/22 oxybutynin chloride 76256249149 Monika Fletcher DNP,AUTOMOTIVE REPAIR TECHNICIAN,FINANCIAL DIRECTOR MECLIZINE HCL 25 MG TABS as needed 01/15 meclizine 77759917327 Monika Fletcher DNP,AUTOMOTIVE REPAIR TECHNICIAN,FINANCIAL DIRECTOR COMBIVENT RESPIMAT 20-100 MCG/ACT AERS as needed 01/15 ipratropium-albut joseline 18237594036 Monika Fletcher DNP,AUTOMOTIVE REPAIR TECHNICIAN,FINANCIAL DIRECTOR LEVOTHYROXINE SODIUM 150 MCG TABS levothyroxine 64926338155 Monika Fletcher DNP,AUTOMOTIVE REPAIR TECHNICIAN,FINANCIAL DIRECTOR EPIPEN 2-NICKOLAS 0.3 MG/0.3ML SOAJ epinephrine 01690272021 Monika Fletcher DNP,AUTOMOTIVE REPAIR TECHNICIAN,FINANCIAL DIRECTOR BACTROBAN 2 % EXTERNAL OINTMENT as needed 01/15 BACTROBAN 2 % EXTERNAL OINTMENT Monika Fletcher DNP,AUTOMOTIVE REPAIR TECHNICIAN,FINANCIAL DIRECTOR MELOXICAM 15 MG TABS 01/15 meloxicam 92457972554 Monika Fletcher DNP,AUTOMOTIVE REPAIR TECHNICIAN,FINANCIAL DIRECTOR AMLODIPINE BESYLATE 2.5 MG TABS 03/22 amlodipine 67203997478 Monika Fletcher DNP,AUTOMOTIVE REPAIR TECHNICIAN,FINANCIAL DIRECTOR D 5000 125 MCG (5000 UT) CAPS once a day cholecalciferol (vitamin d3) 81519673233 Monika Fletcher DNP,AUTOMOTIVE REPAIR TECHNICIAN,FINANCIAL DIRECTOR FLUZONE HIGH-DOSE 0.5 ML INTRAMUSCULAR SUSPENSION PREFILLED SYRINGE 03/22 FLUZONE HIGH-DOSE 0.5 ML INTRAMUSCULAR SUSPENSION PREFILLED SYRINGE Monika Fletcher DNP,AUTOMOTIVE REPAIR TECHNICIAN,FINANCIAL DIRECTOR SERTRALINE HCL 100 MG TABS sertraline 66058409375 Monika Fletcher DNP,AUTOMOTIVE REPAIR TECHNICIAN,FINANCIAL DIRECTOR DULERA AERO 08/23 MOMETASONE FURO-FORMOTEROL FUM AERO 16395937110 Rodolfo Conrad MD AMMONIUM LACTATE 12 % CREA as needed 08/23 AMMONIUM LACTATE 99957404937 Rodolfo Conrad MD AMMONIUM LACTATE 12 % CREA as needed 10/15 AMMONIUM LACTATE 45131651528 Monika Fletcher DNP,AUTOMOTIVE REPAIR TECHNICIAN,FINANCIAL DIRECTOR BACTROBAN 2 % EXTERNAL OINTMENT as needed 03/22 MUPIROCIN 87477935131 Monika Fletcher DNP,AUTOMOTIVE REPAIR TECHNICIAN,FINANCIAL DIRECTOR MECLIZINE HCL 25 MG TABS as needed 03/22 MECLIZINE HCL 46565434781 Monika Fletcher DNP,AUTOMOTIVE REPAIR TECHNICIAN,FINANCIAL DIRECTOR DULERA AERO 08/23 MOMETASONE FURO-FORMOTEROL FUM AERO 73498792232 Monika Fletcher DNP,AUTOMOTIVE REPAIR TECHNICIAN,FINANCIAL DIRECTOR VITAMIN D3 125 MCG (5000 UT) CAPS daily 03/22 CHOLECALCIFEROL 72917622048 Monika Fletcher DNP,AUTOMOTIVE REPAIR TECHNICIAN,FINANCIAL DIRECTOR COMBIVENT RESPIMAT AERS as needed 03/22 IPRATROPIUM-ALBUT JOSELINE AERS 36453848007 Monika Fletcher DNP,AUTOMOTIVE REPAIR TECHNICIAN,FINANCIAL DIRECTOR ADULT ASPIRIN EC LOW STRENGTH 81 MG ORAL TABLET DELAYED RELEASE One pill daily 03/22 ASPIRIN 94362338388 Monika Fletcher DNP,AUTOMOTIVE REPAIR TECHNICIAN,FINANCIAL DIRECTOR EPIPEN 2-NICKOLAS 0.3 MG/0.3ML SOAJ 10/15 EPINEPHRINE 25411261689 Monika Fletcher DNP,AUTOMOTIVE REPAIR TECHNICIAN,FINANCIAL DIRECTOR OXYBUTYNIN CHLORIDE ER 10 MG [id number] 08/17 OXYBUTYNIN CHLORIDE 85950077586 Monika Fletcher DNP,AUTOMOTIVE REPAIR TECHNICIAN,FINANCIAL DIRECTOR SERTRALINE HCL 100 MG TABS 03/22 SERTRALINE HCL 23153307562 Monika Fletcher DNP,AUTOMOTIVE REPAIR TECHNICIAN,FINANCIAL DIRECTOR MONTELUKAST SODIUM 10 MG TABS 03/22 MONTELUKAST SODIUM 61602099980 Monika Fletcher DNP,AUTOMOTIVE REPAIR TECHNICIAN,FINANCIAL DIRECTOR LEVOTHYROXINE SODIUM 150 MCG TABS 10/15 LEVOTHYROXINE SODIUM 35675959433 Monika Fletcher DNP,AUTOMOTIVE REPAIR TECHNICIAN,FINANCIAL DIRECTOR AMLODIPINE BESYLATE 2.5 MG TABS 10/15 AMLODIPINE BESYLATE 83332730355 Monika Fletcher DNP,AUTOMOTIVE REPAIR TECHNICIAN,FINANCIAL DIRECTOR FLUZONE HIGH-DOSE 0.5 ML DESTINY INFLUENZA VAC SPLIT HIGH-DOSE 65270438558 Monika Fletcher DNP,AUTOMOTIVE REPAIR TECHNICIAN,FINANCIAL DIRECTOR MELOXICAM 15 MG TABS 03/22 MELOXICAM 75507358645 Monika Fletcher DNP,AUTOMOTIVE REPAIR TECHNICIAN,FINANCIAL DIRECTOR LEVOFLOXACIN 500 MG TABS 03/22 LEVOFLOXACIN 24347287612 Monika Fletcher DNP,AUTOMOTIVE REPAIR TECHNICIAN,FINANCIAL DIRECTOR ZANAFLEX 4MG 1 po qhs and bid prn muscle stiffness and pain 07/11 ZANAFLEX 4MG Monika Fletcher DNP,AUTOMOTIVE REPAIR TECHNICIAN,FINANCIAL DIRECTOR LYRICA 75 MG CAPS 1 po bid 02/26 PREGABALIN 34597931378 Kendy Soto MS PA-C LYRICA 50 MG CAPS take 1 tab daily in am 02/26 PREGABALIN 01558973744 Kendy Soto MS PA-C LYRICA 50 MG CAPS take 1 tab daily in am 10/15 PREGABALIN 31986805487 Kendy Soto MS PA-C LYRICA 75 MG CAPS 1 po bid 10/15 PREGABALIN 47002707853 Brent AliciaFelipa Tarrel DO ZANAFLEX 4MG 1 [...] hands and feet Critical Active Monika Fletcher DNP,AUTOMOTIVE REPAIR TECHNICIAN,FINANCIAL DIRECTOR GABAPENTIN myalgia Critical Active Monika Fletcher DNP,AUTOMOTIVE REPAIR TECHNICIAN,FINANCIAL DIRECTOR SHELLFISH anaphylactic reaction Critical Active Monika Fletcher DNP,AUTOMOTIVE REPAIR TECHNICIAN,FINANCIAL DIRECTOR CHOLESTOFF PLUS myalgia pain Critical Active Monika Fletcher DNP,AUTOMOTIVE REPAIR TECHNICIAN,FINANCIAL DIRECTOR FENOFIBRATE myalgia pain Critical Active Monika Cristobaligel DNP,AUTOMOTIVE REPAIR TECHNICIAN,FINANCIAL DIRECTOR DICYCLOMINE HCL confusion Critical Active Monika Fletcher DNP,AUTOMOTIVE REPAIR TECHNICIAN,FINANCIAL DIRECTOR ADHESIVE BANDAGES blisters Critical Active Valdez Fletcher DNP,AUTOMOTIVE REPAIR TECHNICIAN,FINANCIAL DIRECTOR ATORVASTATIN CALCIUM severe myalgia and pain Critical Active Monika Cristobaligel DNP,AUTOMOTIVE REPAIR TECHNICIAN,FINANCIAL DIRECTOR FLUTICASONE PROPIONATE rash Critical No Longer Active Monika Fletcher DNP,AUTOMOTIVE REPAIR TECHNICIAN,FINANCIAL DIRECTOR MEIJER ANTIHISTAMINE ALLERGY paradoxical effect Critical Active Monika Cristobaligel DNP,AUTOMOTIVE REPAIR TECHNICIAN,FINANCIAL DIRECTOR BUPROPION HCL anxiety and confusion Critical Act huma Monika Fletcher DNP,AUTOMOTIVE REPAIR TECHNICIAN,FINANCIAL DIRECTOR THEOPHYLLINE neurological issues Critical Active Monika Fletcher DNP,AUTOMOTIVE REPAIR TECHNICIAN,FINANCIAL DIRECTOR CARBAMAZEPINE rash-Dexter Babatunde' s syndrome Critical Active Monika Fletcher DNP,AUTOMOTIVE REPAIR TECHNICIAN,FINANCIAL DIRECTOR SULFAMETHOXAZOLE-TRI METHOPRIM allergic reaction of confusion and vomiting Critical Active Monika Fletcher DNP,AUTOMOTIVE REPAIR TECHNICIAN,FINANCIAL DIRECTOR METHYLPHENIDATE HCL heart issues Critical Active Monika Cristobaligel DNP,AUTOMOTIVE REPAIR TECHNICIAN,FINANCIAL DIRECTOR NABUMETONE allergic rash Critical Active Monika Cristobaligel DNP,AUTOMOTIVE REPAIR TECHNICIAN,FINANCIAL DIRECTOR METOCLOPRAMIDE HCL allergic rash Critical Active Monika Cristobaligel DNP,AUTOMOTIVE REPAIR TECHNICIAN,FINANCIAL DIRECTOR FLUOXETINE HCL hypertension Critical Active A richardson Fletcher DNP,AUTOMOTIVE REPAIR TECHNICIAN,FINANCIAL DIRECTOR PREDNISONE (NICKOLAS) swelling and lung issues Critical Active Monika Fletcher DNP,AUTOMOTIVE REPAIR TECHNICIAN,FINANCIAL DIRECTOR PENICILLIN G POTASSIUM allergic rash Critical Active Monika Fletcher DNP,AUTOMOTIVE REPAIR TECHNICIAN,FINANCIAL DIRECTOR IBUPROFEN esophagitis Critical Active Monika Fletcher DNP,AUTOMOTIVE REPAIR TECHNICIAN,FINANCIAL DIRECTOR METHACHOLINE/LIVER blisters on skin Critical Act huma Monika Fletcher DNP,AUTOMOTIVE REPAIR TECHNICIAN,FINANCIAL DIRECTOR CODEINE SULFATE restricted breathing Critical Ac tive Monika Fletcher DNP,AUTOMOTIVE REPAIR TECHNICIAN,FINANCIAL DIRECTOR LITHIUM CARBONATE muscle weakness and semiconsciousness Critical Active Monika Fletcher DNP,AUTOMOTIVE REPAIR TECHNICIAN,FINANCIAL DIRECTOR LORAZEPAM addiction Critical Active Monika Fletcher DNP,AUTOMOTIVE REPAIR TECHNICIAN,FINANCIAL DIRECTOR Results Date Name Value Unit Range Flag Description Clinical Lists Update: Metho d of Contact METHCONTACT secmsg Patient's prefered method of contact Internal Other: Authorizatio n - OBS PTSTAUTHDT Done PT Barber paul Authorization Date Office Visit: MEM ISSUES; HX OF CONCUSSIONS 08/02/16 11:17- 08/02/16 11:17... SMOK STATUS former smoker Tob acco smoking status Office Visit: 07/19/17 12:52 REFERRING PHYSICIAN NAME: HUI DEGAR ... FALLRSKASSES Done Fall ris k assessment [...] 12:00 PM Michael Weems MD , [address], [address], [place], [address], Pending order Follow up Pending order Follow [...] with Neurologist or JERAD ORDERS Patient Instructions SCT-[id number] Other Referral SCT-[id number] Other Referral ORDERS Other Lab ORDERS Follow up ORDERS Other Order ORDERS Patient Instructions ORDERS Patient Instructions ORDERS Obtain outside records 12/09 CPT-38430 Nerve Conduction 13 or more studies 11/24 CPT-61066 EMG with NCS (5+ muscles) - 3 limbs 11/24 [id number] MRI-Thoracic W/O CPT-62757 MRI Thoracic W/O [facility]-[id number] Other Referral ORDERS Physical Therapy ORDERS EMG [...] Therapy ORDERS Physical Therapy ORDERS Other Order [id number] MRI-Lumbar W/O ORDERS Follow up ORDERS Other Order ORDERS EMG bilateral upper ext 2020 ORDERS EMG bilateral low ext 03/22 CPT-12384 Nerve Conduction 9-10 studies CPT-58458 EMG with NCS (5+ muscles) - 2 limbs 03/31 ORDERS Follow up ORDERS Other Order ORDERS Follow up [id number] Documentation of current medicatio ns ORDERS Follow up SCT-[id number] Documentation of current medicatio ns LOINC 43949-4 Fall risk assessment 09/01 ORDERS Sleep Consult LOINC 84757-3 Fall risk assessment 02/24 SCT-[id number] Documentation of current medicatio ns ORDERS Follow up SCT-371025911 Fall risk assessment (procedure) SCT-[id number] Documentation of current medicatio ns CPT-35095 EEG EXTENDED 61-119mins (END) ORDERS EEG Extended SCT-[id number] Fall risk assessment (procedure) SCT-514750241 Fall risk assessment (procedure) SCT-[id number] Documentation of current medicatio ns SCT-842934709 Fall risk assessment (procedure) ORDERS Patient Instructions [id number] MRI-Lumbar W/O CPT-51793 MRI Lumbar W/O ORDERS Patient Instructions [facility]-[id number] Documentation of current medicatio ns [facility]-[id number] Other Referral CPT-23772 Nerve Conduction 5-6 studies CPT-19255 EMG with NCS (5+ muscles) - 2 limbs 12/26 CPT-75564 Sensory NCS x 6 CPT-81900 Motor NCS and Fwave x 4 2008 CPT-38653 H-reflex x 1 CPT-13077 EMG 2 limb Vital Signs Date Name [...]
--- OUTSIDE RECORDS SUMMARY | 2024-10-08 10:38 | XMS_ITS | Clinical Summary ---
Author Organization [facility] Address [address] [place] [address] Care Team Providers Care Unionmelt Operator Name Role Phone Megan Woods MD Unavailable [phone] Ning Dunn DO Primary Care Provider [phone] Allergies Active Allergy Reactions Criticality Noted Date [...] Itchy rash, burning Latex, Natural Rubber Hives,Rash [place] Other - Describe In Comment Field High [...] muscle issues Shellfish Containing Products Dizziness 06/05/2014 Zupzvhu-Hkw-Ymx Reductase Inhibitors Myalgia 08/18/2011 Sulfa (Sulfonamide Antibiotics) [...] magic mouthwash 1:1:1 (diphen 12.5mg/5mL-lidocai ne 2%-maalox [phone]/5ml) (AMB MIX)Indications:Mo uth sore Swish and spit [...] 2015: Referral placed for further evaluation at [facility] neurology as patient reports progressing symptoms. Neuropathic [...] muscular disorder Saw neuromuscular specialist at [facility] per patient Has chronically elevated CK. 2014 saw Rheumatology and neurology with no known etiology for symptoms Referral [facility] for further evaluation regarding symptoms is pending [...] Team Description 10/04/2024 Travel 09/27/2024 Orders Only [facility] Scanner 1 scan: (1-Ord) [facility], XR CHEST 1V PORTABLE, 09/27/2024 09/25/2024 Medical Messaging [facility] [address] [place] [address] Ning Dunn DO Referral request 09/09/2024 Nurse Triage [facility] [address] [place] [address] Ning Dunn DO Blood Body Fluid Exposure; Sores In Mouth 09/09/2024 Telephone [facility] [address] [place] [address] Ning Dunn DO OTHER (Mrsa) 09/04/2024 2:20 PM [facility] Telemedicine [facility] [address] [place] [address] Ning Dunn DO Shoulder Pain/problem (Bilateral shoulder and upper arms ongoing getting worse-referral [facility] for injections); Medication Management (2 tylenol 3 times daily, 3 ibuprofen 3 times daily-liver); Refill Request (Magic mouthwash for sore in mouth) 07/30/2024 3:00 PM COTTON WEIGHER Telemedicine [facility] [address] [place] [id number] Hayden Blanc MD 07/30/2024 Travel 07/11/2024 Refill [facility] [address] [place] [address] Ning Dunn DO Refill Request (Dextroamphetamine- amphetamine) 07/10/2024 2:30 PM COTTON WEIGHER Office Visit [facility] [address] [place] [address] Aamir Rosas MD Sleep Follow-up 07/10/2024 Travel [...] AM CDT Legal Sex Female 6:09 AM COTTON WEIGHER Gender Identity Female 03/12/2020 1:26 AM CDT [...] Comments Blood Pressure 169/78 07/10/2024 2:44 PM COTTON WEIGHER Pulse 57 07/10/2024 2:36 PM COTTON WEIGHER Temperature 36.9 C (98.5 F) 03/11/2021 1:17 PM CDT Respiratory Rate 12 04/08/2019 2:35 PM CDT Oxygen Saturation 96% 07/10/2024 2:36 PM COTTON WEIGHER Inhaled Oxygen Concentration - - Weight 104 kg (229 lb 3.2 oz) 07/10/2024 2:36 PM COTTON WEIGHER Height 162.6 cm (5' 4) 07/10/2024 2:36 PM COTTON WEIGHER Body Mass Index 39.34 07/10/2024 2:36 PM COTTON WEIGHER Plan of Treatment Upcoming Encounters Date Type Department Care Team (Late st Contact Info) Description 10/09/2024 10:50 AM CDT Office Visit [facility] [address] [place] [address] Ning Dunn DO [address] [place] [address] Health Maintenance Due Date Last Done Comments [...] age 50+ Completed 10/11/2014 ([facility]), 10/03/2014, 03/19/2013 Zoster (shingles) series for age [...] huma Non-React huma 03/20/2021 11:31 PM CDT [facility] Comment:Antibodies to HCV no t detected; does not exclude the possibility of exposure to HCV. Blood BLOOD SPECIMEN / Unknown Venipuncture / Unknown 03/19/2021 3:41 PM CDT 03/19/2021 3:41 PM CDT us Ning Dunn DO SEND OUTS Final Resu lt [facility] [address] [place] [address], [place] * XR DXA BONE DENSITY 1 SITE AXIAL AND 1 SITE PERIPHERAL (04/29/2020 1:54 PM CDT) Anatomical Region Laterality Modality LUMBAR SPINE Other Narrative 05/10/2020 3:57 PM COTTON WEIGHER Please see scanned document for results of this study. us Ning Dunn DO DEXA Final Resu lt from Last 3 Months or Most Recently Relevant to Health Maintenance Insurance MEDICARE PB ONLY MEDICARE PART A HB ONLY MEDICARE PART B HB ONLY [facility] [id number] [id number] [facility] MEDICARE [place] ONLY [id number] [place] [id number] [employer] [id number] [id number] Advance Directives Documents on File Type Date Recorded Patient Type Cutter Expl anation Healthcare Directive 06/08/2015 2:32 PM ELENITA CASILLAS, 05/26/2015 Care Teams Unionmelt Operator Relationship Specialty Start Date End Date Ning Dunn DO [address] [place] [address] PCP - General Family Practice 04/16/15 Megan Woods MD [address] [facility] [address] [place] [address] Rheumatology Rheumatology 11/07/14
== END 2024-10-08 11:39 | disposition home or self-care (01) ==
PROVIDERS: Emergency Provider Emergency Medicine Emergency Medical Services; PCP Family Medicine
DX: R05.9 Cough, unspecified (principal)
CPT/HCPCS: 71046; 99283; 99284